=== PATIENT | female | born 1995 | race Caucasian/White ===

== ENCOUNTER 2016-05-09 17:30 | Emergency (ER) ==
[2016-05-09] MEDS ORDERED: ACETAMINOPHEN 325 MG TABLET PO ONE (17:43)
--- NOTE | 2016-05-09 17:43 | ER Document Report ---
ED Medical Screen (RME) - General Stated Complaint: HEADACHE Time seen by provider: 17:40 Mode of Arrival: Ambulatory Information source: Patient Notes: 80-year-old female complaining of a posterior occipital headache that started on Wednesday that is radiating into both of her temples and down into both of her jaws since Wednesday. She took a whole bottle of Motrin this week without relief. She has nausea and ringing in her ears. She did not take any aspirin today. No fever. sHe has a history of migraines. LMP: last week irregular for months I have greeted and performed a rapid initial assessment of this patient. A comprehensive ED assessment, evaluation of the patient, analysis of test results , and completion of the medical decision making process will be conducted by additional ED providers. - Related Data Allergies/Adverse Reactions: Penicillins Allergy (Verified 05/09/16 17:39) Sulfa (Sulfonamide Antibiotics) Allergy (Verified 05/09/16 17:39) Physical Exam - Vital signs Vitals: Temp Pulse Resp BP Pulse Ox 97.9 F 93 16 110/77 97 05/09/16 17:34 05/09/16 17:34 05/09/16 17:34 05/09/16 17:34 05/09/16 17:34 Course - Vital Signs Vital signs: Temp Pulse Resp BP Pulse Ox 97.9 F 93 16 110/77 97 05/09/16 17:34 05/09/16 17:34 05/09/16 17:34 05/09/16 17:34 05/09/16 17:34
--- NOTE | 2016-05-09 18:11 | ER Document Report ---
ED Headache - General Mode of Arrival: Ambulatory Information source: Patient TRAVEL OUTSIDE OF THE [place] IN LAST 30 DAYS: No - HPI Patient complains to provider of: Headache Associated symptoms: Other - See above <SAMEER MORTENSEN - Last Filed: 05/09/16 18:18> <MAGGIE BROTHERS - Last Filed: 05/09/16 22:55> - General Chief Complaint: Headache Stated Complaint: HEADACHE Notes: Patient is a 20 year old female who presents to the emergency department complaining of a headache onset 5 days ago. Patient reports that she has been taking Motrin, Tylenol, and Alieve at home with no relief. Patient also complains of nausea and ringing in her right ear. Patient states that she had an ear ache before her headache started. Patient reports she has a history of migraines from a pinched nerve in her neck but that this is different. Patient reports that she was planning on coming in yesterday but that she had to work. Patient is unsure if she is . Patient denies cough, congestion, jaw clicking, and sore throat. (SAMEER MORTENSEN) - Related Data Allergies/Adverse Reactions: Penicillins Allergy (Verified 05/09/16 17:39) Sulfa (Sulfonamide Antibiotics) Allergy (Verified 05/09/16 17:39) Home Medications: Current Home Medications No Home Medications 05/09/16 [History] Past Medical History - General Information source: Patient - Social History Smoking Status: Current Every Day Smoker Chew tobacco use (# tins/day): No Frequency of alcohol use: Occasional Drug Abuse: None Family History: Reviewed & Not Pertinent Patient has suicidal ideation: No Patient has homicidal ideation: No <SAMEER MORTENSEN - Last Filed: 05/09/16 18:18> Review of Systems - Review of Systems Constitutional: No symptoms reported EENT: See HPI, Other - ear ringing. denies: Nose congestion, Throat pain Cardiovascular: No symptoms reported Respiratory: denies: Cough Gastrointestinal: See HPI, Nausea Genitourinary: No symptoms reported Female Genitourinary: No symptoms reported Musculoskeletal: No symptoms reported Skin: No symptoms reported Hematologic/Lymphatic: No symptoms reported Neurological/Psychological: See HPI, Headaches -: Yes All other systems reviewed and negative <SAMEER MORTENSEN - Last Filed: 05/09/16 18:18> Physical Exam - Vital signs Interpretation: Normal - General General appearance: Appears well, Alert - HEENT Head: Normocephalic, Atraumatic Ears: Normal External canal: Normal Tympanic membrane: Normal Neck: Normal - Respiratory Respiratory status: No respiratory distress - Extremities General upper extremity: Normal inspection General lower extremity: Normal inspection - Neurological Neuro grossly intact: Yes Cognition: Normal Orientation: AAOx4 Saida Coma Scale Eye Opening: Spontaneous [place] Coma Scale Verbal: Oriented [place] Coma Scale Motor: Obeys Commands [place] Coma Scale Total: 15 Speech: Normal - Psychological Associated symptoms: Normal affect, Normal mood - Skin Skin Temperature: Warm Skin Moisture: Dry Skin Color: Normal <SAMEER MORTENSEN - Last Filed: 05/09/16 18:18> Course <SAMEER MORTENSEN - Last Filed: 05/09/16 18:18> - Laboratory Result Diagrams: 05/09/16 18:30 05/09/16 18:30 <MAGGIE BROTHERS - Last Filed: 05/09/16 22:55> - Re-evaluation Re-evalutation: 05/09/16 Patient feels better after medications and feels better. Like to go home. Stable for discharge. Follow-up with PMD for migraines. (MAGGIE BROTHERS ) - Vital Signs Vital signs: Temp Pulse Resp BP Pulse Ox 97.9 F 93 16 110/77 97 05/09/16 17:34 05/09/16 17:34 05/09/16 17:34 05/09/16 17:34 05/09/16 17:34 - Laboratory Laboratory results interpreted by me: 05/09/16 05/09/16 18:30 18:30 RDW 14.2 H Chloride 108 H Carbon Dioxide 20 L Discharge <SAMEER MORTENSEN - Last Filed: 05/09/16 18:18> <MAGGIE BROTHERS - Last Filed: 05/09/16 22:55> - Discharge Clinical Impression: Headache Qualifiers: Headache type: unspecified Headache chronicity pattern: acute headache Intractability: not intractable Qualified Code(s): R51 - Headache Condition: Stable Disposition: HOME, SELF-CARE Instructions: Headache ([facility]) Scribe Attestation: 05/09/16 22:55 I personally performed the services described in the documentation, reviewed and edited the documentation which was dictated to the scribe in my presence, and it accurately records my words and actions. (MAGGIE BROTHERS) Scribe Documentation - Scribe Written by Fadumo:: fadumo Gutierrez, 05/09/161817 acting as scribe for :: Austyn <SAMEER MORTENSEN - Last Filed: 05/09/16 18:18>
[2016-05-09] MEDS ORDERED: ONDANSETRON HCL INJ/PF 4 MG/2 ML SDV IV ONE (18:12)
[2016-05-09] MEDS ORDERED: PROCHLORPERAZINE EDISYLATE INJ 10 MG/2 ML VIAL IV ONE (18:12)
[2016-05-09] MEDS ORDERED: DIPHENHYDRAMINE HCL 50 MG/ML VIAL IV ONE (18:12)
[2016-05-09 18:42] LABS: ABSOLUTE BASOPHILS # (AUTO) 0.1 10^3/uL (0.0-0.2); ABSOLUTE EOSINOPHILS # (AUTO) 0.3 10^3/uL (0.0-0.6); ABSOLUTE MONOCYTES (AUTO) 0.7 10^3/uL (0.1-1.4); ABSOLUTE NEUT (AUTO) 5.2 10^3/uL (1.7-8.2); EOSINOPHILS % (AUTO) 3.3 % (0-6); HEMATOCRIT 37.4 % (36.0-47.0); HEMOGLOBIN 12.8 g/dL (12.0-15.5); LYMPHOCYTES % (AUTO) 31.7 % (13-45); MEAN CORPUSCULAR HEMOGLOBIN 30.9 pg (27.0-33.4); MEAN CORPUSCULAR HGB CONC 34.2 g/dL (32.0-36.0); MEAN CORPUSCULAR VOLUME 90 fl (80-97); RED BLOOD COUNT 4.14 10^6/uL (3.72-5.28); RED CELL DISTRIBUTION WIDTH 14.2 % (11.5-14.0); WHITE BLOOD COUNT 9.3 10^3/uL (4.0-10.5)
[2016-05-09 19:02] LABS: ANION GAP 15 (5-19); BLOOD UREA NITROGEN 16 mg/dL (7-20); CARBON DIOXIDE 20 mmol/L (22-30); CHLORIDE 108 mmol/L (98-107); CREATININE RESULT 0.76 mg/dL (0.52-1.25); GLUCOSE 82 mg/dL (75-110); POTASSIUM 4.1 mmol/L (3.6-5.0); SODIUM 142.9 mmol/L (137-145)
== END 2016-05-09 18:54 | disposition home or self-care (01) ==
LOC: ER 17:30
DX: R51 Headache (principal); R11.0 Nausea; F17.200 Nicotine dependence, unspecified, uncomplicated; Z88.0 Allergy status to penicillin; Z88.2 Allergy status to sulfonamides
CPT/HCPCS: 99284; 96374; 96375; 36415; 84702; 85025; 80048; J1200; J0780; J2405

== ENCOUNTER 2016-07-26 22:11 | Emergency (ER) | payer SELFPAY | END 2016-07-27 00:02 | disposition left against medical advice (07) | LOC: ER 22:11 | DX: Z53.9 Procedure and treatment not carried out, unspecified reason (principal); R10.9 Unspecified abdominal pain ==

== ENCOUNTER 2016-12-14 17:39 | Emergency (ER) | payer SELFPAY | END 2016-12-14 18:45 | disposition left against medical advice (07) | LOC: ER 17:39 | DX: Z53.9 Procedure and treatment not carried out, unspecified reason (principal); R10.9 Unspecified abdominal pain ==

== ENCOUNTER 2017-02-03 08:47 | Emergency (ER) | payer SELFPAY ==
[2017-02-03] MEDS ORDERED: CLINDAMYCIN HCL 150 MG CAPSULE PO ONE (09:50)
[2017-02-03] MEDS ORDERED: IBUPROFEN 800 MG TABLET PO ONE (09:51)
[2017-02-03] MEDS ORDERED: ACETAMINOPHEN WITH CODEINE #3 TABLET PO ONE (09:51)
--- NOTE | 2017-02-03 09:54 | ER Document Report ---
HPI - HPI Patient complains to provider of: Dental pain Onset: Last week Quality of pain: Achy Pain Level: 5 Context: Patient complains of breaking her tooth 2 months ago. Patient complains of worsening pain over the past week. Patient without any fever or facial swelling. Associated Symptoms: Other - Dental pain. denies: Fever, Headache, Vomiting Exacerbated by: Denies Relieved by: Denies Similar symptoms previously: Yes Recently seen / treated by doctor: No - ROS ROS below otherwise negative: Yes Systems Reviewed and Negative: Yes All other systems reviewed and negative - CONSTITUTIONAL Constitutional: DENIES: Fever - EENT Notes: Dental pain - GASTROINTESTINAL Gastrointestinal: DENIES: Nausea, Patient vomiting - DERM Skin Color: Normal Skin Problems: None Past Medical History - General Information source: Patient - Social History Smoking Status: Current Every Day Smoker Occupation: Retail Lives with: Family Family History: Reviewed & Not Pertinent Pulmonary Medical History: Reports: Hx Asthma Renal/ Medical History: Denies: Hx Peritoneal Dialysis Past Surgical History: Reports: Hx Oral Surgery - Immunizations Hx Diphtheria, Pertussis, Tetanus Vaccination: Yes Vertical Provider Document - CONSTITUTIONAL Agree With Documented VS: Yes Exam Limitations: No Limitations General Appearance: WD/WN, No Apparent Distress - INFECTION CONTROL TRAVEL OUTSIDE OF THE [place] IN LAST 30 DAYS: No - HEENT HEENT: Atraumatic, Normocephalic. negative: Pharyngeal Exudate, Pharyngeal Tenderness, Pharyngeal Erythema, Tympanic Membrane Red, Tympanic Membrane Bulging Mouth Diagram: 1 - Dental decay, fracture, tenderness, no gingival swelling, no trismus, no potential airway compromise Notes: Serous effusion on the left - NECK Neck: Normal Inspection, Supple. negative: Lymphadenopathy-Left, Lymphadenopathy-Right - RESPIRATORY Respiratory: Breath Sounds Normal, No Respiratory Distress O2 Sat by Pulse Oximetry: 97 - CARDIOVASCULAR Cardiovascular: Regular Rate, Regular Rhythm - MUSCULOSKELETAL/EXTREMETIES Musculoskeletal/Extremeties: MAEW - NEURO Level of Consciousness: Awake, Alert, Appropriate Motor/Sensory: No Motor Deficit - DERM Integumentary: Warm, Dry, No Rash Course - Re-evaluation Re-evalutation: 02/03/17 [place] controlled substance database reviewed - Vital Signs Vital signs: Temp Pulse Resp BP Pulse Ox 97.9 F 76 16 103/63 97 02/03/17 09:12 02/03/17 09:12 02/03/17 09:12 02/03/17 09:12 02/03/17 09:12 Discharge - Discharge Clinical Impression: Toothache Condition: Stable Disposition: HOME, SELF-CARE Instructions: Clindamycin ([facility]), Oral Narcotic Medication ([facility]), Toothache ([facility] ) Additional Instructions: Return immediately for any new or worsening symptoms Followup with your primary care provider, call tomorrow to make a followup appointment Follow-up with a dental care provider Prescriptions: Acetaminophen with Codeine [Acetaminophen-Cod #3 Tablet] 1 each PO Q6 PRN #12 tablet PRN Reason: Clindamycin HCl [Cleocin 300 mg Capsule] 300 mg PO TID #21 capsule Naproxen [Naprosyn 250 Nmg Tablet] 1 tab PO BID #14 tablet Forms: Return to Work Referrals: [facility] [Provider Group] - Follow up tomorrow
[2017-02-03 10:28] VITALS: BP 94/66
== END 2017-02-03 10:29 | disposition home or self-care (01) ==
LOC: ER 08:47
DX: K02.9 Dental caries, unspecified (principal); K08.89 Other specified disorders of teeth and supporting structures; J45.909 Unspecified asthma, uncomplicated; F17.200 Nicotine dependence, unspecified, uncomplicated
CPT/HCPCS: 99282

== ENCOUNTER 2017-04-05 13:11 | Emergency (ER) | payer SELFPAY ==
[2017-04-05] MEDS ORDERED: DEXAMETHASONE SOD PHOS INJ 10 MG/1 ML VIAL IV ONE (14:43)
[2017-04-05] MEDS ORDERED: IPRATROPIUM/ALBUTEROL 0.5-2.5 MG/3 ML AMPUL NEB ONE (14:43)
[2017-04-05] MEDS ORDERED: NORMAL SALINE 1000 ML 1,000 ML IV ONE (14:44)
[2017-04-05 15:14] LABS: A TYPE INFLUENZA AG NEGATIVE (NEGATIVE); B INFLUENZA AG NEGATIVE (NEGATIVE)
[2017-04-05] MEDS: ALBUTEROL SULFATE 0.083% NEB 2.5 MG/3 ML AMPUL NEB SCH ×2 (15:21→15:50)
--- NOTE | 2017-04-05 15:29 | RADIOLOGY REPORT (SQ) ---
EXAM DESCRIPTION: CHEST PA/LAT COMPLETED DATE/TIME: 04/05/2017 3:21 pm REASON FOR STUDY: cough congestion fever COMPARISON: None. EXAM PARAMETERS: NUMBER OF VIEWS: two views TECHNIQUE: Digital Frontal and Lateral radiographic views of the chest acquired. RADIATION DOSE: NA LIMITATIONS: none FINDINGS: LUNGS AND PLEURA: No opacities, masses or pneumothorax. No pleural effusion. MEDIASTINUM AND HILAR STRUCTURES: No masses or contour abnormalities. HEART AND VASCULAR STRUCTURES: Heart normal size. No evidence for failure. BONES: No acute findings. HARDWARE: None in the chest. OTHER: No other significant finding. IMPRESSION: NO SIGNIFICANT RADIOGRAPHIC FINDING IN THE CHEST. TECHNICAL DOCUMENTATION: JOB ID: [id number] [employer]- All Rights Reserved
[2017-04-05 15:52] LABS: ABSOLUTE LYMPHOCYTES (AUTO) 1.4 10^3/uL (0.5-4.7); ABSOLUTE MONOCYTES (AUTO) 0.8 10^3/uL (0.1-1.4); ABSOLUTE NEUT (AUTO) 6.7 10^3/uL (1.7-8.2); BASOPHILS % (AUTO) 0.3 % (0-2); EOSINOPHILS % (AUTO) 0.1 % (0-6); HEMATOCRIT 37.8 % (36.0-47.0); HEMOGLOBIN 13.1 g/dL (12.0-15.5); LYMPHOCYTES % (AUTO) 15.4 % (13-45); MEAN CORPUSCULAR HEMOGLOBIN 30.8 pg (27.0-33.4); MEAN CORPUSCULAR HGB CONC 34.6 g/dL (32.0-36.0); MEAN CORPUSCULAR VOLUME 89 fl (80-97); MONOCYTES % (AUTO) 9.3 % (3-13); PLATELET COUNT 331 10^3/uL (150-450); RED BLOOD COUNT 4.24 10^6/uL (3.72-5.28); RED CELL DISTRIBUTION WIDTH 12.7 % (11.5-14.0); SEGMENTED NEUTROPHILS % (AUTO) 74.9 % (42-78); TOTAL CELLS COUNTED % (AUTO) 100 %
[2017-04-05 17:35] LABS: ALANINE AMINOTRANSFERASE 26 U/L (9-52); ALBUMIN 3.7 g/dL (3.5-5.0); ALKALINE PHOSPHATASE 44 U/L (38-126); ANION GAP 8 (5-19); ASPARTATE AMINO TRANSFERASE 20 U/L (14-36); BILIRUBIN,DIRECT 0.2 mg/dL (0.0-0.4); BILIRUBIN,TOTAL 0.2 mg/dL (0.2-1.3); BLOOD UREA NITROGEN 6 mg/dL (7-20); CALCIUM 9.3 mg/dL (8.4-10.2); CARBON DIOXIDE 25 mmol/L (22-30); CHLORIDE 108 mmol/L (98-107); GLUCOSE 111 mg/dL (75-110); POTASSIUM 3.1 mmol/L (3.6-5.0); SODIUM 141.4 mmol/L (137-145); TOTAL PROTEIN 6.2 g/dL (6.3-8.2)
[2017-04-05] MEDS ORDERED: POTASSIUM CHLORIDE 10 MEQ TABLET.SA PO ONE (17:58)
[2017-04-05] MEDS ORDERED: ALBUTEROL SULFATE HFA (90 MCG/PUFF) 8 GM MDI (1 MDI/ER DISP) IH ONE (17:58)
--- NOTE | 2017-04-05 18:04 | ER Document Report ---
ED Flu Like - General Chief Complaint: Flu Symptoms Stated Complaint: BREATHING PROBLEM Time Seen by Provider: 04/05/17 14:20 Mode of Arrival: Ambulatory Information source: Patient Notes: 20-year-old female presented to ED for complaint of cough cold and flu symptoms states she felt like she was dehydrated and short of breath. Patient states she has a history of asthma and used an entire albuterol inhaler last night because she was so short of breath. She states that her family refused to bring her to the emergency room last night because they thought she was just taken it. TRAVEL OUTSIDE OF THE [place] IN LAST 30 DAYS: No - HPI Onset: Yesterday Timing/Duration: Persistent Quality of pain: Achy Severity: Severe Pain Level: 5 Associated symptoms: Body/muscle aches, Chills, Fever, Rhinnorhea, Sinus pain/ drainage, Shortness of breath Similar symptoms previously: Yes Recently seen / treated by doctor: No - Related Data Allergies/Adverse Reactions: Penicillins Allergy (Verified 04/05/17 15:39) Sulfa (Sulfonamide Antibiotics) Allergy (Verified 04/05/17 15:39) Past Medical History - General Information source: Patient - Social History Smoking Status: Current Every Day Smoker Cigarette use (# per day): Yes - One half pack per day Chew tobacco use (# tins/day): No Smoking Education Provided: Yes - 4 minutes Frequency of alcohol use: Occasional Drug Abuse: None Occupation: None Lives with: Parents Family History: Arthritis, CAD, CVA, DM, Hyperlipidemia, Hypertension. denies: COPD, Malignancy, Thyroid Disfunction Patient has suicidal ideation: No Patient has homicidal ideation: No - Past Medical History Cardiac Medical History: Reports: None Pulmonary Medical History: Reports: Hx Asthma, Hx Bronchitis EENT Medical History: Reports: None Neurological Medical History: Reports: None Endocrine Medical History: Reports: None Renal/ Medical History: Reports: None Malignancy Medical History: Reports: None GI Medical History: Reports: None Musculoskeltal Medical History: Reports None Skin Medical History: Reports None Psychiatric Medical History: Reports: None Traumatic Medical History: Reports: None Infectious Medical History: Reports: None Past Surgical History: Reports: Hx Oral Surgery - Immunizations Immunizations up to date: Yes Hx Diphtheria, Pertussis, Tetanus Vaccination: Yes Review of Systems - Review of Systems Constitutional: Recent illness EENT: Nose congestion, Sinus pressure Cardiovascular: No symptoms reported Respiratory: Cough, Short of breath, Wheezing Gastrointestinal: Nausea, Vomiting Genitourinary: No symptoms reported Female Genitourinary: No symptoms reported Musculoskeletal: No symptoms reported Skin: No symptoms reported Hematologic/Lymphatic: No symptoms reported Neurological/Psychological: No symptoms reported -: Yes All other systems reviewed and negative Physical Exam - Vital signs Vitals: Temp Pulse Resp BP Pulse Ox 98.7 F 97 18 125/75 98 04/05/17 13:21 04/05/17 13:21 04/05/17 13:21 04/05/17 13:21 04/05/17 13:21 Interpretation: Normal - General General appearance: Appears well, Alert - HEENT Head: Normocephalic, Atraumatic Eyes: Normal Pupils: PERRL Ears: Normal External canal: Normal Tympanic membrane: Normal Sinus: Normal Nasal: Purulent discharge, Swelling Mouth/Lips: Normal Mucous membranes: Normal - Respiratory Respiratory status: No respiratory distress Chest status: Nontender Breath sounds: Nonproductive cough, Other - She states she felt her lungs were very tight. No: Productive cough, Rales, Rhonchi, Stridor, Wheezing Chest palpation: Normal - Cardiovascular Rhythm: Regular Heart sounds: Normal auscultation Murmur: No - Abdominal Inspection: Normal Distension: No distension Bowel sounds: Normal Tenderness: Nontender. No: Tender Organomegaly: No organomegaly. No: Hepatomegaly, Splenomegaly, Mass - Back Back: Normal, Nontender - Extremities General upper extremity: Normal inspection, Nontender, Normal color, Normal ROM , Normal temperature General lower extremity: Normal inspection, Nontender, Normal color, Normal ROM , Normal temperature, Normal weight bearing. No: Elba's sign - Neurological Neuro grossly intact: Yes Cognition: Normal Orientation: AAOx4 [place] Coma Scale Eye Opening: Spontaneous [place] Coma Scale Verbal: Oriented [place] Coma Scale Motor: Obeys Commands [place] Coma Scale Total: 15 Speech: Normal Motor strength normal: LUE, RUE, LLE, RLE Sensory: Normal - Psychological Associated symptoms: Normal affect, Normal mood - Skin Skin Temperature: Warm Skin Moisture: Dry Skin Color: Normal Course - Re-evaluation Re-evalutation: 04/06/17 02:50 Patient was treated with dexamethasone IV as well as albuterol and DuoNeb nebulizer treatments. Patient's chest x-ray was negative. Her potassium was low which is not unusual with her using a whole albuterol inhaler last night. Patient was given potassium p.o. in the emergency room and encouraged to eat bananas until she placed her potassium. Patient was given instructions on proper use of an albuterol inhaler and to increase her p.o. fluid intake. Patient to follow-up with her primary doctor and to return to the ED for any increase in wheezing or respiratory symptoms. - Vital Signs Vital signs: Temp Pulse Resp BP Pulse Ox 98.2 F 96 18 131/81 H 97 04/05/17 18:24 04/05/17 18:24 04/05/17 18:24 04/05/17 18:24 04/05/17 18:24 - Laboratory Result Diagrams: 04/05/17 15:35 04/05/17 17:11 Laboratory results interpreted by me: 04/05/17 17:11 Potassium 3.1 L Chloride 108 H BUN 6 L Creatinine 0.50 L Glucose 111 H Total Protein 6.2 L - Diagnostic Test Radiology reviewed: Image reviewed, Reports reviewed Discharge - Discharge Clinical Impression: Hypokalemia, Flu-like symptoms, Bronchospasm Condition: Stable Disposition: HOME, SELF-CARE Instructions: Family Physicians / Practices Additional Instructions: Viral Syndrome The physician has diagnosed a viral infection. Viruses not only cause "colds," but can cause many different symptoms including generalized aching, fever, headache, cough, diarrhea, nausea, vomiting, and fatigue. The treatment, for the most part, is simply relief of symptoms. This means that antibiotics are usually not given. Rest, fluids, pain medications and, occasionally, medication for the specific symptoms that are most bothersome will be prescribed. Use good handwashing to avoid passing the virus to others. Shared toys should be cleaned with disinfectant. Clean the toilets, sinks, and counter surfaces in bathrooms. Launder clothing in hot water. Contact the physician if you develop any new or unusual symptoms such as severe headache, stiff neck, high fever, chest pain, productive cough, or shortness of breath. You should be rechecked if you don't see marked improvement within seven to 10 days. UPPER RESPIRATORY ILLNESS: You have a viral infection of the respiratory passages -- a "cold." This common infection causes nasal congestion, drainage, and often sore throat and cough. It is highly contagious. The disease usually lasts about 10 to 14 days. There is no "cure" for the viral infection -- it must run its course. If there is a complication, such as bacterial infection in the nose, sinuses, middle ear, or bronchial tubes, antibiotics may be required. The antibiotics won't affect the virus. Drink plenty of fluids. A humidifier may help. An expectorant medication or decongestant may make you more comfortable. Use acetaminophen or ibuprofen for fever or aches. See the doctor if fever persists over two days, if there is any significant worsening of your symptoms, or if you simply fail to improve as expected. BRONCHOSPASM: You have tightness in the bronchial tubes, called bronchospasm. This often occurs with bronchial infections. Allergies, inhaled chemicals, and polluted or cold air can also provoke bronchospasm. It's more likely in patients with asthma in the family. Emergency treatment of bronchospasm may include adrenaline shots or bronchodilator aerosol. You may feel lightheaded and have a rapid pulse for an hour or two. Rest and get plenty of fluids. At home, we'll treat you with a bronchodilator inhaler. Antibiotics and corticosteroids may be required for some patients. Until you recover, avoid chemical fumes, dusts, pollens, and exercising in very cold or dry air. If you smoke, stop now!! If you develop a fever, increased wheezing, chest pain, or severe shortness of breath, you should contact the doctor immediately. Hypokalemia You have an abnormally decreased level of serum potassium. Hypokalemia may cause weakness, fatigue, or heart rhythm abnormalities. Sometimes there are no symptoms at all. Usually, low serum potassium is due to taking diuretics ( water pills). It can also be due to excessive vomiting or diarrhea. If no obvious cause is evident, further evaluation will be necessary. Treatment is usually oral potassium supplements. Take these exactly as prescribed. You may also want to select foods which are naturally high in potassium -- fruits (such as bananas, cantaloupe, grapes, oranges, prunes, tomatoes), fresh vegetables (potatoes, spinach, beans, peas), orange or tomato juice, tomato pasta sauce, milk, fish (halibut, tuna, salmon, ramses) A follow-up blood test is usually performed to assure that the potassium is returning to normal. Call the physician if you suffer severe weakness, muscle twitching or cramping, palpitations (pounding or irregular heartbeat), or any other new or alarming symptoms. Please eat 2 bananas a day for the next week to help with your potassium DECONGESTANT MEDICATION: A decongestant medicine has been prescribed. Often this medicine is combined in the same tablet with an antihistamine or expectorant. This type of medicine is helpful in treating a bad cold or sinus condition, as well as in treatment of the nasal congestion of hay fever. It is not of much benefit for lung infections. Decongestant medicines are related to stimulants. They can cause an increase in blood pressure and heart rate. Persons with heart disease and high blood pressure should not take decongestants without discussing this with the physician. If you develop palpitations, chest pain, headache, or tremors, stop the medicine and consult your physician. COUGH-SUPPRESSANT & EXPECTORANT MEDICATION: You are to use a cough medication as needed for relief of symptoms. This medicine is a combination of an expectorant (to make the mucous thinner and more easily "coughed up") and a cough suppressant (to reduce the frequency of coughing). The cough-suppressant medicine is related to narcotics. You may experience mild nausea and sleepiness. Some patients who are very sensitive to narcotics may have stomach pain from this medicine. Taking the medicine with food reduces these side effects. Do not drive or work with machinery until you know how this medicine affects you. The expectorant should have no side effects. Iodine-containing expectorants (such as organidin) should not be taken by persons with active thyroid disease unless approved by your doctor. Call the doctor if you develop shortness of breath, hives, rash, itching, lightheadedness, or severe nausea and vomiting. INHALED BRONCHODILATORS: You have received a treatment of and/or prescription for an inhaled bronchodilator -- a medication which stimulates the airways in the lung to dilate. This improves the flow of air in asthma, bronchitis, and emphysema. These medicines have some similarity to adrenaline, and can cause similar side effects: shakiness, racing heart, and a sense of nervousness. These side effects decrease with time. Contact your doctor if these side effects are severe. Do not over-use the medicine. Too-frequent use of the inhaler may make it ineffective. Call your doctor if the inhaler is not controlling your symptoms at the prescribed doses. STEROID MEDICATION: You have been given an injection of or oral medicine of the cortisone/ steroid class. This medication is used to control inflammation or allergy. Yoel t is usually only given for a short period of time, until the acute process subsides. There are usually no side effects from short-term use of cortisone-like medications. Some persons feel an increased sense of well-being and are not sleepy at bedtime. Long-term use of cortisone medications is best avoided, unless required for a severe condition. If your condition does not remit, or relapses after the course of corticosteroid medication, you should consult your physician. USE OF ACETAMINOPHEN (Tylenol): Acetaminophen may be taken for pain relief or fever control. It's much safer than aspirin, offering a wider range of "safe" dosages. It is safe during . Some brand names are Tylenol, Panadol, Datril, Anacin 3, Tempra, and Liquiprin. Acetaminophen can be repeated every four hours. The following are maximum recommended dosages: >89 pounds or adults 650 mg to 900 mg Acetaminophen can be repeated every four hours. Maximum dose not to exceed 4000 mg a day. SMOKING: If you smoke, you should stop smoking. The tar and chemicals in cigarette smoke are harmful. Smoking has been shown to cause: emphysema chronic bronchitis lung cancer mouth and throat cancer stomach and pancreas cancer premature aging defects In addition, smoking increases ear and lung infections in children of smokers. FOLLOW-UP CARE: If you have been referred to a physician for follow-up care, call the physician s office for an appointment as you were instructed or within the next two days. If you experience worsening or a significant change in your symptoms, notify the physician immediately or return to the Emergency Department at any time for re-evaluation. You given you a list of all the local primary doctors. I have also given you a mental health resource list for you to look for a provider for your ADHD. I have also given you name and number care in [facility]. Prescriptions: Albuterol Sulfate [Proair HFA Inhalation Aerosol 8.5 gm MDI] 2 puff IH Q4H PRN # 1 mdi PRN Reason: Prednisone [Sterapred Ds] 1 pkg PO ASDIR PRN 12 Days [email or web address] PRN Reason: Forms: Smoking Cessation Education Referrals: [facility] [Provider Group] - Follow up as needed
[2017-04-05 18:25] VITALS: BP 131/81
== END 2017-04-05 18:25 | disposition home or self-care (01) ==
LOC: ER 13:11
DX: J98.01 Acute bronchospasm (principal); R05 Cough; R06.02 Shortness of breath; M79.1 Myalgia; F17.210 Nicotine dependence, cigarettes, uncomplicated; E87.6 Hypokalemia
CPT/HCPCS: 99406; 94640 ×2; 99284; 96361; 96374; 36415; 84703; 85025; 80053; 87804; 71046; J7030; J1100; J3490; J7620

== ENCOUNTER 2017-04-12 13:45 | Emergency (ER) | payer SELFPAY ==
[2017-04-12 14:08] VITALS: BP 127/86
[2017-04-12 14:30] LABS: ABSOLUTE EOSINOPHILS # (AUTO) 0.1 10^3/uL (0.0-0.6); ABSOLUTE LYMPHOCYTES (AUTO) 2.2 10^3/uL (0.5-4.7); ABSOLUTE MONOCYTES (AUTO) 0.4 10^3/uL (0.1-1.4); ABSOLUTE NEUT (AUTO) 5.9 10^3/uL (1.7-8.2); BASOPHILS % (AUTO) 0.2 % (0-2); EOSINOPHILS % (AUTO) 1.4 % (0-6); HEMATOCRIT 37.3 % (36.0-47.0); HEMOGLOBIN 12.9 g/dL (12.0-15.5); LYMPHOCYTES % (AUTO) 25.4 % (13-45); MEAN CORPUSCULAR HEMOGLOBIN 30.6 pg (27.0-33.4); MEAN CORPUSCULAR HGB CONC 34.5 g/dL (32.0-36.0); MEAN CORPUSCULAR VOLUME 89 fl (80-97); MONOCYTES % (AUTO) 4.7 % (3-13); PLATELET COUNT 396 10^3/uL (150-450); RED BLOOD COUNT 4.21 10^6/uL (3.72-5.28); RED CELL DISTRIBUTION WIDTH 12.7 % (11.5-14.0); SEGMENTED NEUTROPHILS % (AUTO) 68.3 % (42-78); TOTAL CELLS COUNTED % (AUTO) 100 %; WHITE BLOOD COUNT 8.6 10^3/uL (4.0-10.5)
[2017-04-12 14:51] LABS: ALANINE AMINOTRANSFERASE 26 U/L (9-52); ALBUMIN 3.9 g/dL (3.5-5.0); ALKALINE PHOSPHATASE 51 U/L (38-126); ANION GAP 8 (5-19); ASPARTATE AMINO TRANSFERASE 14 U/L (14-36); BILIRUBIN,DIRECT 0.3 mg/dL (0.0-0.4); BILIRUBIN,TOTAL 0.4 mg/dL (0.2-1.3); BLOOD UREA NITROGEN 7 mg/dL (7-20); CALCIUM 9.4 mg/dL (8.4-10.2); CARBON DIOXIDE 25 mmol/L (22-30); CHLORIDE 109 mmol/L (98-107); GLUCOSE 90 mg/dL (75-110); TOTAL PROTEIN 6.6 g/dL (6.3-8.2)
[2017-04-12 14:54] LABS: ACETAMINOPHEN < 10 ug/mL (10-30); ALCOHOL < 10 mg/dL (NONE DETECTED); SALICYLATE < 1.0 mg/dL (2.0-20.0)
[2017-04-12 15:48] LABS: APPEARANCE,URINE SLIGHTLY-CLOUDY; BILIRUBIN,URINE NEGATIVE (NEGATIVE); COLOR,URINE YELLOW; GLUCOSE, URINE NEGATIVE (NEGATIVE); KETONES,URINE NEGATIVE (NEGATIVE); LEUKOCYTE ESTERASE,URINE LARGE (NEGATIVE); NITRITE,URINE NEGATIVE (NEGATIVE); PROTEIN,URINE NEGATIVE (NEGATIVE); UROBILINOGEN,URINE NEGATIVE mg/dL (<2.0)
[2017-04-12 16:10] LABS: URINE AMPHETAMINES SCREEN NEGATIVE; URINE BARBITURATES SCREEN NEGATIVE; URINE BENZODIAZEPINES SCREEN NEGATIVE; URINE COCAINE SCREEN NEGATIVE; URINE MARIJUANA (THC) SCREEN UNCONFIRMED POSITIVE; URINE METHADONE SCREEN NEGATIVE; URINE PHENCYCLIDINE SCREEN NEGATIVE
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
--- NOTE | 2017-04-12 22:34 | EKG REPORT ---
SEVERITY:- NORMAL ECG - SINUS RHYTHM : Confirmed by: Mariam Birmingham 12-Apr-2017 22:33:13
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
== END 2017-04-12 16:46 | disposition home or self-care (01) ==
LOC: ER 13:45
DX: R45.851 Suicidal ideations (principal); F12.10 Cannabis abuse, uncomplicated; F17.200 Nicotine dependence, unspecified, uncomplicated; Z88.0 Allergy status to penicillin; Z88.2 Allergy status to sulfonamides
CPT/HCPCS: 36415; 80053; 80307; 81001; 84703; 85025; 93005; 93010; 99284

== ENCOUNTER 2017-05-10 01:09 | Emergency (ER) | payer SELFPAY ==
[2017-05-10] MEDS ORDERED: NORMAL SALINE 1000 ML 1,000 ML IV ONE (01:43)
[2017-05-10] MEDS ORDERED: HYDROCODONE/ACETAMINOPHEN 5-325 MG TABLET PO ONE (01:44)
[2017-05-10 02:37] LABS: ABSOLUTE BASOPHILS # (AUTO) 0.1 10^3/uL (0.0-0.2); ABSOLUTE EOSINOPHILS # (AUTO) 0.2 10^3/uL (0.0-0.6); ABSOLUTE LYMPHOCYTES (AUTO) 2.6 10^3/uL (0.5-4.7); ABSOLUTE MONOCYTES (AUTO) 1.2 10^3/uL (0.1-1.4); ABSOLUTE NEUT (AUTO) 11.4 10^3/uL (1.7-8.2); BASOPHILS % (AUTO) 0.4 % (0-2); EOSINOPHILS % (AUTO) 1.2 % (0-6); HEMATOCRIT 40.1 % (36.0-47.0); HEMOGLOBIN 13.7 g/dL (12.0-15.5); LYMPHOCYTES % (AUTO) 16.8 % (13-45); MEAN CORPUSCULAR HEMOGLOBIN 30.3 pg (27.0-33.4); MEAN CORPUSCULAR HGB CONC 34.2 g/dL (32.0-36.0); MEAN CORPUSCULAR VOLUME 89 fl (80-97); MONOCYTES % (AUTO) 7.9 % (3-13); PLATELET COUNT 465 10^3/uL (150-450); RED BLOOD COUNT 4.53 10^6/uL (3.72-5.28); RED CELL DISTRIBUTION WIDTH 14.2 % (11.5-14.0); SEGMENTED NEUTROPHILS % (AUTO) 73.7 % (42-78); TOTAL CELLS COUNTED % (AUTO) 100 %; WHITE BLOOD COUNT 15.5 10^3/uL (4.0-10.5)
[2017-05-10 02:56] LABS: ANION GAP 14 (5-19); BLOOD UREA NITROGEN 9 mg/dL (7-20); CALCIUM 9.7 mg/dL (8.4-10.2); CARBON DIOXIDE 22 mmol/L (22-30); CHLORIDE 105 mmol/L (98-107); CREATINE KINASE 53 U/L (30-135); GLUCOSE 103 mg/dL (75-110); POTASSIUM 3.9 mmol/L (3.6-5.0); SODIUM 141.1 mmol/L (137-145)
[2017-05-10] MEDS ORDERED: DOXYCYCLINE HYCLATE 100 MG TABLET PO ONE (03:05)
[2017-05-10] MEDS ORDERED: HYDROCODONE/ACETAMINOPHEN 5-325 MG (6 TAB/ER DISP) PO PRN (03:11)
--- NOTE | 2017-05-10 03:15 | ER Document Report ---
ED General - General Chief Complaint: Skin Problem Stated Complaint: POSSIBLE SPIDER BITE Time Seen by Provider: 05/10/17 01:24 Notes: Patient is a 21-year-old female who presents with complaint of redness and pain to the right forearm. She says she first noticed a small area of redness 3 days ago. Redness is slowly spread areas become little more painful. No swelling. She did have a fever at home today. No vomiting. No diarrhea. She initially thought it may be a spider bite but she never did see a spider and she denies seeing any puncture miller on her arm. Today she did have some vomiting and some body aches when she had a fever. She denies any history of IV drug abuse. She has no other complaints at this time. TRAVEL OUTSIDE OF THE [place] IN LAST 30 DAYS: No - Related Data Allergies/Adverse Reactions: Penicillins Allergy (Verified 05/10/17 01:10) Sulfa (Sulfonamide Antibiotics) Allergy (Verified 05/10/17 01:10) Past Medical History - Social History Smoking Status: Current Every Day Smoker Frequency of alcohol use: Occasional Drug Abuse: Marijuana Family History: Arthritis, CAD, CVA, DM, Hyperlipidemia, Hypertension. denies: COPD, Malignancy, Thyroid Disfunction Patient has suicidal ideation: No Patient has homicidal ideation: No Pulmonary Medical History: Reports: Hx Asthma, Hx Bronchitis Renal/ Medical History: Denies: Hx Peritoneal Dialysis Past Surgical History: Reports: Hx Oral Surgery - Immunizations Immunizations up to date: Yes Hx Diphtheria, Pertussis, Tetanus Vaccination: Yes Review of Systems - Review of Systems Notes: My Normal Review Basic REVIEW OF SYSTEMS: CONSTITUTIONAL : Fever at home RESPIRATORY: Denies cough, cold, or chest congestion. Denies shortness of breath, difficulty breathing, or wheezing. GASTROINTESTINAL: Denies abdominal pain. A few episodes of vomiting.. Denies constipation. Last BM: MUSCULOSKELETAL: Redness and pain to right forearm. SKIN: Denies rash or skin lesions. HEMATOLOGIC : Denies easy bruising or bleeding. NEUROLOGICAL: Denies altered mental status or loss of consciousness. ALL OTHER SYSTEMS REVIEWED AND NEGATIVE. Physical Exam - Vital signs Vitals: Temp Pulse Resp BP Pulse Ox 98.6 F 110 H 22 H 125/89 H 97 05/10/17 01:15 05/10/17 01:15 05/10/17 01:15 05/10/17 01:15 05/10/17 01:15 - Notes Notes: General Appearance: Well nourished, alert, cooperative, no acute distress, mild to moderate obvious discomfort. Eyes: PERRL, EOMI, Conjuctiva clear Lungs: No wheezing, No rales, No rhonci, No accessory muscle use, good air exchange bilaterally. Heart: Normal rate, Regular rythm, No murmur, no rub Extremities good pulses in all extremities, small area of redness approximately 3-4 cm in diameter over the right forearm. There is no associated swelling. Is tender to palpate just over the area of redness. The remainder of the forearm is nontender and there is no crepitance. Redness is coalesced at its origin and then almost become somewhat scattered as it lateralizes. No track miller or signs of IV drug abuse on extremity exams. Skin: warm, dry, appropriate color, redness on right forearm. Neuro: speech clear, oriented x 3, normal affect, responds appropriately to questions. Course - Re-evaluation Re-evalutation: 05/10/17 03:15 On reevaluation patient looks well. I feel patient safe to be discharged home. She appears to most likely have a cellulitis. The redness is over small area. As expected is low but tender to palpation. Pain is not out of proportion to exam. She has no crepitance. I do not suspect necrotizing fasciitis. The pain seems to be localized to where the redness is. She does have white counts had recent fevers. Will place on doxycycline. I informed her that she should return to ER immediately if she has recurrent worsening pain , spreading redness, fevers, or any swelling at the area. Encouraged her follow -up with her doctor in 2 days for reevaluation. Patient agrees with plan will be discharged home. Dictation of this chart was performed using voice recognition software; therefore, there may be some unintended grammatical errors. - Vital Signs Vital signs: Temp Pulse Resp BP Pulse Ox 98.3 F 105 H 16 119/88 H 100 05/10/17 03:20 05/10/17 03:20 05/10/17 03:20 05/10/17 03:20 05/10/17 03:20 - Laboratory Result Diagrams: 05/10/17 02:20 05/10/17 02:20 Laboratory results interpreted by me: 05/10/17 02:20 WBC 15.5 H RDW 14.2 H Plt Count 465 H Absolute Neutrophils 11.4 H Discharge - Discharge Clinical Impression: Rash Cellulitis Qualifiers: Site of cellulitis: extremity Site of cellulitis of extremity: upper extremity Laterality: right Qualified Code(s): L03.113 - Cellulitis of right upper limb Condition: Good Disposition: HOME, SELF-CARE Instructions: Oral Narcotic Medication ([facility]) Additional Instructions: Based on your recent fever and mildly elevated white blood cell count I suspect you most likely have cellulitis. This is a bacterial infection of the skin. I will place you on an antibiotic. The antibiotic is called doxycycline. This antibiotic does make your skin sensitive to the sun and to sunburn easily; therefore, please make sure that you have your skin covered when you go well into the sunlight. Please return to the ER if the redness is not improving after 2 days. Return to the ER immediately if you feel like the redness is spreading, you have recurrent fevers, or if you notice swelling associated with the redness. Prescriptions: Doxycycline Hyclate 100 mg PO BID #14 capsule
[2017-05-10 03:28] VITALS: BP 119/88
== END 2017-05-10 03:27 | disposition home or self-care (01) ==
LOC: ER 01:09
DX: L03.113 Cellulitis of right upper limb (principal); R21 Rash and other nonspecific skin eruption; R50.9 Fever, unspecified; R11.10 Vomiting, unspecified; F17.200 Nicotine dependence, unspecified, uncomplicated; J45.909 Unspecified asthma, uncomplicated; Z88.0 Allergy status to penicillin; Z88.2 Allergy status to sulfonamides
CPT/HCPCS: 99283; 96360; 36415; 82550; 85025; 80048; J7030

== ENCOUNTER 2017-05-14 00:09 | Emergency (ER) | payer SELFPAY ==
[2017-05-14] MEDS ORDERED: KETOROLAC TROMETHAMINE 60 MG/2 ML SDV IM ONE (02:19)
[2017-05-14] MEDS ORDERED: DIAZEPAM 2 MG TABLET PO ONE (02:20)
--- NOTE | 2017-05-14 02:24 | ER Document Report ---
ED General - General Chief Complaint: Arm Pain Stated Complaint: RIGHT SHOULER PAIN Time Seen by Provider: 05/14/17 02:09 Mode of Arrival: Ambulatory Information source: Patient TRAVEL OUTSIDE OF THE [place] IN LAST 30 DAYS: No - HPI Patient complains to provider of: "I can't move my right arm" Onset: Just prior to arrival Severity: Moderate Associated symptoms: None Exacerbated by: Denies Relieved by: Denies Similar symptoms previously: No Recently seen / treated by doctor: Yes - seen here last week Notes: Patient states she was at home studying for her GED when she went to crack her neck and felt a sharp pain down her right arm. She states now she is unable to move her arm at all. - Related Data Allergies/Adverse Reactions: Penicillins Allergy (Verified 05/10/17 01:10) Sulfa (Sulfonamide Antibiotics) Allergy (Verified 05/10/17 01:10) Past Medical History - General Information source: Patient - Social History Smoking Status: Current Every Day Smoker Frequency of alcohol use: Occasional Drug Abuse: Marijuana Family History: Arthritis, CAD, CVA, DM, Hyperlipidemia, Hypertension. denies: COPD, Malignancy, Thyroid Disfunction Patient has suicidal ideation: No Patient has homicidal ideation: No - Past Medical History Cardiac Medical History: Reports: None Pulmonary Medical History: Reports: Hx Asthma, Hx Bronchitis Neurological Medical History: Reports: None Endocrine Medical History: Reports: None Renal/ Medical History: Reports: None. Denies: Hx Peritoneal Dialysis Malignancy Medical History: Reports: None GI Medical History: Reports: None Musculoskeltal Medical History: Reports None Psychiatric Medical History: Reports: Hx Depression, Hx Post Traumatic Stress Disorder Past Surgical History: Reports: Hx Oral Surgery - wisdoms - Immunizations Immunizations up to date: Yes Hx Diphtheria, Pertussis, Tetanus Vaccination: Yes Review of Systems - Review of Systems Constitutional: No symptoms reported EENT: No symptoms reported Cardiovascular: No symptoms reported Respiratory: No symptoms reported Gastrointestinal: No symptoms reported Genitourinary: No symptoms reported Female Genitourinary: No symptoms reported Musculoskeletal: See HPI Skin: No symptoms reported Hematologic/Lymphatic: No symptoms reported Neurological/Psychological: See HPI Physical Exam - Vital signs Vitals: Temp Pulse Resp BP Pulse Ox 98.4 F 101 H 18 127/76 H 98 05/14/17 00:14 05/14/17 00:14 05/14/17 00:14 05/14/17 00:14 05/14/17 00:14 - Notes Notes: PHYSICAL EXAMINATION: GENERAL: Well-appearing, well-nourished and in no acute distress. HEAD: Atraumatic, normocephalic. EYES: Pupils equal round and reactive to light, extraocular movements intact, conjunctiva are normal. ENT: Nares patent, oropharynx clear without exudates. Moist mucous membranes. NECK: Normal range of motion, supple without lymphadenopathy. No pain with palpation of the bony cervical spine. No step-off. LUNGS: Breath sounds clear to auscultation bilaterally and equal. No wheezes rales or rhonchi. HEART: Regular rate and rhythm without murmurs ABDOMEN: Soft, nontender, nondistended abdomen. No guarding, no rebound. No masses appreciated. Female : deferred Musculoskeletal: Normal range of motion, no pitting or edema. No cyanosis. NEUROLOGICAL: Cranial nerves grossly intact. Normal speech, normal gait. Normal sensory. Patient is 5 out of 5 strength right upper extremity. She is positive hand grasp which is equal to her hand grasp of her left hand. Right upper extremity is neurovascularly intact. Patient has normal DTRs in her right upper extremity. She is able to abduct flex and extend her right upper extremity with mild pain to her right shoulder. There is no swelling deformity crepitance to the right shoulder. PSYCH: Normal mood, normal affect. SKIN: Warm, Dry, normal turgor, no rashes or lesions noted. Course - Re-evaluation Re-evalutation: 05/14/17 02:27 I initially went into the patient's room she was holding her arm to her right side with the elbow bent and the trapezial muscle spasms of the right side. She states that she is unable to move her arm. I did ask the patient to get up off the bed. When she did she to move her shoulder and her elbow while getting up. I did have patient stand next to the bed and I did have her flex extend and abduct her right shoulder which she could do with mild discomfort. Patient did have good hand grasp. I did talk to her and her father I told her I put her on anti-inflammatories. She had no trauma to the area there was no gross bony deformity and I did not feel that an x-ray of her shoulder or cervical spine would be of use. Patient's to take the anti-inflammatories. She is to follow-up at a nearby urgent care for further evaluation and treatment. - Vital Signs Vital signs: Temp Pulse Resp BP Pulse Ox 98.4 F 101 H 18 127/76 H 98 05/14/17 00:14 05/14/17 00:14 05/14/17 00:14 05/14/17 00:14 05/14/17 00:14 Discharge - Discharge Clinical Impression: Muscle spasm of right shoulder Condition: Stable Disposition: HOME, SELF-CARE Instructions: Muscle Strain ([facility]) Additional Instructions: Follow up with your physician tomorrow for further care or return to the ED IMMEDIATELY if symptoms worsen or new concerns occur. If you cannot afford to follow up with your primary care physician a list of low cost clinics have been provided at the end of your discharge papers as well. Prescriptions: Naproxen [Naprosyn] 500 mg PO BID 5 Days #10 tablet
[2017-05-14 02:51] VITALS: BP 120/67
== END 2017-05-14 02:45 | disposition home or self-care (01) ==
LOC: ER 00:09
DX: M62.838 Other muscle spasm (principal); M79.601 Pain in right arm; F17.200 Nicotine dependence, unspecified, uncomplicated; Z88.0 Allergy status to penicillin; Z88.2 Allergy status to sulfonamides
CPT/HCPCS: 99283; 96372; J3490; J1885

== ENCOUNTER 2017-08-30 19:21 | Emergency (ER) | payer SELFPAY ==
[2017-08-30 19:46] VITALS: BP 120/69
== END 2017-08-30 21:00 | disposition left against medical advice (07) ==
LOC: ER 19:21
DX: Z53.21 Procedure and treatment not carried out due to patient leaving prior to being seen by health care provider (principal)

== ENCOUNTER 2017-09-09 21:18 | Emergency (ER) | payer SELFPAY ==
--- NOTE | 2017-09-09 22:01 | RADIOLOGY REPORT (SQ) ---
EXAM DESCRIPTION: FOOT RIGHT COMPLETE COMPLETED DATE/TIME: 09/09/2017 9:34 pm REASON FOR STUDY: injury COMPARISON: None. NUMBER OF VIEWS: Three views. TECHNIQUE: AP, lateral and oblique radiographic images acquired of the right foot. LIMITATIONS: None. FINDINGS: MINERALIZATION: Normal. BONES: No acute fracture or dislocation. No worrisome bone lesions. JOINTS: No effusions. SOFT TISSUES: No soft tissue swelling. No foreign body. OTHER: No other significant finding. IMPRESSION: NO RADIOGRAPHIC EVIDENCE OF ACUTE INJURY. TECHNICAL DOCUMENTATION: JOB ID: [id number] [id number] 2010 [employer]- All Rights Reserved Reading location - IP/workstation name: [email or web address]
--- NOTE | 2017-09-09 22:09 | ER Document Report ---
ED Extremity Problem, Lower - General Mode of Arrival: Ambulatory Information source: Patient TRAVEL OUTSIDE OF THE [place] IN LAST 30 DAYS: No - General Chief Complaint: Foot Pain Stated Complaint: RIGHT FOOT PAIN Time Seen by Provider: 09/09/17 21:51 Notes: 22 y.o female presents to the ED with RT foot pain of onset last night while she was drunk. Pt reports that she does not remember what happened to her foot but that her boyfriend might have stepped on it several times. She reports pain with ambulation and notes the bruising and edema to her foot. Pt reports previous injury to that foot and ankle, she states that she fractured her ankle and foot playing dodge ball and placing her weight on her injured RLE. (JOSEPH STERN) - Related Data Allergies/Adverse Reactions: Penicillins Allergy (Verified 05/10/17 01:10) Sulfa (Sulfonamide Antibiotics) Allergy (Verified 05/10/17 01:10) Past Medical History - General Information source: Patient - Social History Smoking Status: Current Some Day Smoker Chew tobacco use (# tins/day): No Frequency of alcohol use: Social Family History: Arthritis, CAD, CVA, DM, Hyperlipidemia, Hypertension Patient has suicidal ideation: No Patient has homicidal ideation: No Pulmonary Medical History: Reports: Hx Asthma, Hx Bronchitis Renal/ Medical History: Denies: Hx Peritoneal Dialysis Musculoskeltal Medical History: Reports Other - Hx of Fractured RT ankle and foot Psychiatric Medical History: Reports: Hx Depression, Hx Post Traumatic Stress Disorder Past Surgical History: Reports: Hx Oral Surgery - [facility]oms - Immunizations Immunizations up to date: Yes Hx Diphtheria, Pertussis, Tetanus Vaccination: Yes Review of Systems - Review of Systems Constitutional: No symptoms reported EENT: No symptoms reported Cardiovascular: No symptoms reported Respiratory: No symptoms reported Gastrointestinal: No symptoms reported Genitourinary: No symptoms reported Female Genitourinary: No symptoms reported Musculoskeletal: See HPI, Other - RT foot pain Skin: See HPI, Other - ecchymosis and edema to RT foot and toes Hematologic/Lymphatic: No symptoms reported Neurological/Psychological: No symptoms reported -: Yes All other systems reviewed and negative Physical Exam - Vital signs Vitals: Temp Pulse Resp BP Pulse Ox 98.7 F 80 16 126/75 H 98 09/09/17 21:42 09/09/17 21:42 09/09/17 21:42 09/09/17 21:42 09/09/17 21:42 - Notes Notes: Physical Exam: General: Alert, appears well. Laughing during exam. HEENT: Normocephalic. Atraumatic. PERRL. Extraocular movements intact. Oropharynx clear. Neck: Supple. Non-tender. Respiratory: No respiratory distress. Clear and equal breath sounds bilaterally. Cardiovascular: Regular rate and rhythm. Abdominal: Normal Inspection. Non-tender. No distension. Normal Bowel Sounds. Back: Non-tender. No deformity or step off. Extremities: Moves all four extremities. Upper extremities: Normal inspection. Normal ROM. Lower extremities: No edema. Normal ROM. Ecchymosis and edema to the top of the RT foot and metatarsals 2, 3, 4, and 5. Tender to palpation to the top of RT foot. 2+ pulses. Neurovascularly intact. Neurological: Normal cognition. AAOx3. Normal speech. Psychological: Normal affect. Normal Mood. Laughing during exam. Skin: Warm. Dry. Normal color. (JOSEPH STERN) Course - Re-evaluation Re-evalutation: 09/09/17 22:17 Patient has soft tissue swelling over top of foot otherwise x-ray shows no evidence of fracture. Patient is able to ambulate. Will provide postop shoe for support and anti-inflammatories. Patient instructed to follow-up in 10-14 days if symptoms are not improving as sometimes hairline fractures nondetectable upon initial radiographs (LONG,JEROME H) - Vital Signs Vital signs: Temp Pulse Resp BP Pulse Ox 99.3 F 78 16 128/85 H 98 09/09/17 22:27 09/09/17 22:27 09/09/17 21:42 09/09/17 22:27 09/09/17 22:27 Discharge - Discharge Clinical Impression: Contusion of foot, left Qualifiers: Encounter type: initial encounter Qualified Code(s): S90.32XA - Contusion of left foot, initial encounter Disposition: HOME, SELF-CARE Additional Instructions: Hairline fractures are sometimes not detected on initial radiographs. If symptoms are continuing within the next 10-14 days please seek medical care for reevaluation. Please take 600 mg of ibuprofen every 6 hours as needed for pain control. Scribe Attestation: 09/10/17 01:40 I personally performed the services described documentation, reviewed and edited the documentation which was dictated to describe my presence, and it accurately records my words and actions. (JEROME DECKER) Scribe Documentation - Scribe Written by Dominic:: Dominic Lopez 09/09/17 [id number] acting as scribe for :: Pasha
[2017-09-09] MEDS ORDERED: KETOROLAC TROMETHAMINE 60 MG/2 ML SDV IM ONE (22:19)
[2017-09-09 22:30] VITALS: BP 128/85
== END 2017-09-09 22:30 | disposition home or self-care (01) ==
LOC: ER 21:18
DX: S90.31XA Contusion of right foot, initial encounter (principal); M79.671 Pain in right foot; X58.XXXA Exposure to other specified factors, initial encounter; F17.200 Nicotine dependence, unspecified, uncomplicated; J45.909 Unspecified asthma, uncomplicated
CPT/HCPCS: 99283; 96372; 73630; J1885

== ENCOUNTER 2018-04-21 19:12 | Emergency (ER) | payer BC, MEDICAID ==
[2018-04-21] MEDS ORDERED: KETOROLAC TROMETHAMINE INJ/PF 30 MG/1 ML SDV IV ONE (20:20)
[2018-04-21] MEDS ORDERED: NORMAL SALINE 1000 ML 1,000 ML IV ONE (20:21)
[2018-04-21] MEDS ORDERED: ONDANSETRON HCL INJ/PF 4 MG/2 ML SDV IV ONE (20:21)
[2018-04-21 21:03] LABS: ABSOLUTE BASOPHILS # (AUTO) 0.1 10^3/uL (0.0-0.2); ABSOLUTE EOSINOPHILS # (AUTO) 0.3 10^3/uL (0.0-0.6); ABSOLUTE LYMPHOCYTES (AUTO) 4.1 10^3/uL (0.5-4.7); ABSOLUTE MONOCYTES (AUTO) 0.7 10^3/uL (0.1-1.4); ABSOLUTE NEUT (AUTO) 7.5 10^3/uL (1.7-8.2); BASOPHILS % (AUTO) 0.8 % (0-2); EOSINOPHILS % (AUTO) 2.4 % (0-6); HEMATOCRIT 44.2 % (36.0-47.0); HEMOGLOBIN 15.2 g/dL (12.0-15.5); LYMPHOCYTES % (AUTO) 32.1 % (13-45); MEAN CORPUSCULAR HEMOGLOBIN 30.5 pg (27.0-33.4); MEAN CORPUSCULAR HGB CONC 34.3 g/dL (32.0-36.0); MEAN CORPUSCULAR VOLUME 89 fl (80-97); MONOCYTES % (AUTO) 5.2 % (3-13); PLATELET COUNT 390 10^3/uL (150-450); RED BLOOD COUNT 4.96 10^6/uL (3.72-5.28); RED CELL DISTRIBUTION WIDTH 13.7 % (11.5-14.0); SEGMENTED NEUTROPHILS % (AUTO) 59.5 % (42-78); TOTAL CELLS COUNTED % (AUTO) 100 %; WHITE BLOOD COUNT 12.7 10^3/uL (4.0-10.5)
[2018-04-21 21:10] LABS: APPEARANCE,URINE SLIGHTLY-CLOUDY; BILIRUBIN,URINE NEGATIVE (NEGATIVE); COLOR,URINE YELLOW; GLUCOSE, URINE NEGATIVE (NEGATIVE); KETONES,URINE NEGATIVE (NEGATIVE); LEUKOCYTE ESTERASE,URINE NEGATIVE (NEGATIVE); NITRITE,URINE NEGATIVE (NEGATIVE); PROTEIN,URINE NEGATIVE (NEGATIVE); URINE SPECIFIC GRAVITY 1.013; UROBILINOGEN,URINE NEGATIVE mg/dL (<2.0)
--- NOTE | 2018-04-21 21:22 | ER Document Report ---
ED General - General Chief Complaint: Abdominal Pain Stated Complaint: ABDOMINAL PAIN Time Seen by Provider: 04/21/18 20:19 Notes: Patient is a 22-year-old female without chronic medical problems who presents with 4-5 months of chronic right lower abdominal pain. Patient relates that at the end of December 2017 when she was in [place] she developed right lower abdominal pain, was hospitalized and had cyst removed from her right ovary. Marzena judd did not perform an oophorectomy at that time. Patient states she eventually left the hospital AGAINST MEDICAL ADVICE. States that she went back to the hospital on separate occasions thereafter but did not require repeat hospitalization, was noted to have normal ultrasounds. The patient states that she is recently moved back to [place], that nothing is new or different about the pain and that she simply is looking for pain control. Describes the pain as being a constant, daily, cramping, stabbing pain to her lower right abdomen. She has been trying Tylenol and ibuprofen without improvement of the pain. Nothing worsens the pain. Denies vaginal bleeding or vaginal discharge. No fever or constitutional symptoms. TRAVEL OUTSIDE OF THE [place] IN LAST 30 DAYS: No - Related Data Allergies/Adverse Reactions: Penicillins Allergy (Severe, Verified 04/21/18 20:52) cinnamon Allergy (Verified 04/21/18 19:14) Sulfa (Sulfonamide Antibiotics) Allergy (Verified 04/21/18 19:12) ketorolac Adverse Reaction (Mild, Verified 04/21/18 20:52) itching Past Medical History - General Information source: Patient - Social History Smoking Status: Current Every Day Smoker Frequency of alcohol use: None Drug Abuse: None Lives with: Spouse/Significant other Family History: Arthritis, CAD, CVA, DM, Hyperlipidemia, Hypertension Patient has suicidal ideation: No Patient has homicidal ideation: No Pulmonary Medical History: Reports: Hx Asthma, Hx Bronchitis Renal/ Medical History: Denies: Hx Peritoneal Dialysis Psychiatric Medical History: Reports: Hx Depression, Hx Post Traumatic Stress Disorder Past Surgical History: Reports: Hx Oral Surgery - [facility] - Immunizations Immunizations up to date: Yes Hx Diphtheria, Pertussis, Tetanus Vaccination: Yes Review of Systems - Review of Systems Notes: Constitutional: Negative for fever. HENT: Negative for sore throat. Eyes: Negative for visual changes. Cardiovascular: Negative for chest pain. Respiratory: Negative for shortness of breath. Gastrointestinal: Positive for chronic right lower abdominal pain Genitourinary: Negative for dysuria. Musculoskeletal: Negative for back pain. Skin: Negative for rash. Neurological: Negative for headaches, weakness or numbness. 10 point ROS negative except as marked above and in HPI. Physical Exam - Vital signs Vitals: Temp Pulse Resp BP Pulse Ox 98.5 F 102 H 16 114/85 100 04/21/18 19:17 04/21/18 19:17 04/21/18 19:17 04/21/18 19:17 04/21/18 19:17 Interpretation: Normal - Tachycardia resolved at the time of my assessment Notes: PHYSICAL EXAMINATION: GENERAL: Well-appearing, well-nourished and in no acute distress. HEAD: Atraumatic, normocephalic. EYES: Pupils equal round and reactive to light, extraocular movements intact, sclera anicteric, conjunctiva are normal. ENT: nares patent, oropharynx clear without exudates. Moist mucous membranes. NECK: Normal range of motion, supple without lymphadenopathy LUNGS: Breath sounds clear to auscultation bilaterally and equal. No wheezes rales or rhonchi. HEART: Regular rate and rhythm without murmurs ABDOMEN: Soft, minimal right adnexal tenderness, no other localized areas of abdominal tenderness normoactive bowel sounds. No guarding, no rebound. No masses appreciated. EXTREMITIES: Normal range of motion, no pitting or edema. No cyanosis. NEUROLOGICAL: No focal neurological deficits. Moves all extremities spontaneously and on command. PSYCH: Moderately anxious SKIN: Warm, Dry, normal turgor, no rashes or lesions noted. Course - Re-evaluation Re-evalutation: 04/21/18 21:24 Patient presents with chronic right adnexal abdominal pain that is been ongoing since December 2017. The patient reports that she had a cyst resection from the right ovary in [place] in late December, has continued to have pain since that time. States that she recently moved back to this area, but denies that there is anything new or different regarding her pain other than that she does not have access to pain medications currently. She states that this pain has been constant and unchanged for 4 months, only reason she is here in the emergency room is because she does not have a local primary care. On exam the patient is comfortable in appearance, in no distress. Vitals within normal limits at the time of my evaluation. Abdominal exam reveals mild tenderness to the right adnexa but no other localized areas of tenderness. I do not clinically suspect an acute ovarian torsion, pelvic inflammatory disease or acute appendicitis based on duration of symptoms and chronic nature of the patient's pain. Moreover her abdominal exam is quite benign. Labs unremarkable. She is not . Transvaginal ultrasound pending. Patient will be given a dose of pa in medication here in the emergency room but I have advised that I will not prescribe for chronic pain. 04/21/18 23:48 Transvaginal ultrasound is unremarkable without any acute findings. Patient's pain well controlled. Repeat abdominal exam remains benign. At this time will discharge with return precautions and follow-up recommendations. Verbal discharge instructions given a the bedside and opportunity for questions given. Medication warnings reviewed. Patient is in agreement with this plan and has verbalized understanding of return precautions and the need for primary care follow-up in the next 24-72 hours. - Vital Signs Vital signs: Temp Pulse Resp BP Pulse Ox 98.5 F 102 H 16 114/85 100 04/21/18 19:17 04/21/18 19:17 04/21/18 19:17 04/21/18 19:17 04/21/18 19:17 - Laboratory Result Diagrams: 04/21/18 20:49 04/21/18 21:28 Laboratory results interpreted by me: 04/21/18 04/21/18 04/21/18 20:49 20:49 21:28 WBC 12.7 H Chloride 111 H BUN 6 L Creatinine 0.51 L Urine Blood SMALL H Discharge - Discharge Clinical Impression: Right lower quadrant abdominal pain, Chronic abdominal pain Condition: Good Disposition: HOME, SELF-CARE Additional Instructions: You have been seen in the Emergency Department (ED) for abdominal pain. Your evaluation did not identify a clear cause of your symptoms but was generally reassuring. Please follow-up with [facility] regarding her chronic lower abdominal pain. Transvaginal ultrasound did not reveal any acute findings the right ovary in your labs are otherwise normal. For your pain: Take ibuprofen 600 mg and acetaminophen 1000 mg every 6 hours together as needed for pain. You may use the Levsin as prescribed for additional pain control. Return to the ED if your abdominal pain worsens or fails to improve, you develop bloody vomiting, bloody diarrhea, you are unable to tolerate fluids due to vomiting, fever greater than 101, or other symptoms that concern you. Prescriptions: Hyoscyamine Sulfate [Levsin 0.125 Tablet] 0.125 mg PO TID PRN #30 tablet PRN Reason:
[2018-04-21] MEDS ORDERED: LIDOCAINE 5% (700 MG) TRANSDERMAL ADH..PATCH TP ONE (21:23)
[2018-04-21] MEDS ORDERED: TRAMADOL HCL 50 MG TABLET PO ONE (21:23)
[2018-04-21 21:58] LABS: ANION GAP 6 (5-19); BLOOD UREA NITROGEN 6 mg/dL (7-20); CALCIUM 8.5 mg/dL (8.4-10.2); CARBON DIOXIDE 23 mmol/L (22-30); CHLORIDE 111 mmol/L (98-107); GLUCOSE 89 mg/dL (75-110); POTASSIUM 3.9 mmol/L (3.6-5.0); SODIUM 140.1 mmol/L (137-145)
[2018-04-21] MEDS ORDERED: ONDANSETRON HCL INJ/PF 4 MG/2 ML SDV ONE (22:58)
--- NOTE | 2018-04-21 23:46 | RADIOLOGY REPORT (SQ) ---
US PELVIS HISTORY: Right adnexal pain. COMPARISON: None. TECHNIQUE: Grayscale, color Doppler, and spectral Doppler ultrasound images of the pelvis were obtained. FINDINGS: The uterus is anteverted and measures 7.5 x 4.5 x 3.5 cm. No gestational sac, yolk sac, or pole is visualized. The endometrium is 6 mm in thickness and contains echogenic material which may represent blood products. The right ovary measures 1.1 x 2.0 x 1.3 cm. There is normal color Doppler blood flow in the right ovary. The left ovary was poorly visualized. IMPRESSION: 1. No intrauterine gestational sac. 2. Normal right ovary. Left ovary not well visualized.
[2018-04-21] MEDS ORDERED: MORPHINE SULFATE 10 MG/ML INJ IV ONE (23:57)
[2018-04-22 00:16] VITALS: BP 112/72
== END 2018-04-22 00:16 | disposition home or self-care (01) ==
LOC: ER 19:12
DX: G89.29 Other chronic pain (principal); R10.31 Right lower quadrant pain; F17.200 Nicotine dependence, unspecified, uncomplicated; J45.909 Unspecified asthma, uncomplicated; Z87.42 Personal history of other diseases of the female genital tract; Z98.890 Other specified postprocedural states; Z88.0 Allergy status to penicillin; Z88.2 Allergy status to sulfonamides; Z91.018 Allergy to other foods
CPT/HCPCS: 99284; 96361; 96374; 96375; 36415; 84703; 85025; 80048; 81001; 76830; 93976; J2270; J2405; J7030

== ENCOUNTER 2018-04-22 13:02 | Emergency (ER) | payer BC ==
[2018-04-22] MEDS ORDERED: NORMAL SALINE 1000 ML 1,000 ML IV ONE (14:18)
--- NOTE | 2018-04-22 14:20 | ER Document Report ---
ED Medical Screen (RME) - General Chief Complaint: Abdominal Pain Stated Complaint: ABDOMINAL PAIN Time Seen by Provider: 04/22/18 14:12 Mode of Arrival: Ambulatory Information source: Patient Notes: 22-year-old female presents to the emergency room with right lower abdominal pain. Patient was evaluated yesterday and had a pelvic ultrasound which was essentially unremarkable. She presents with persistent pain. She does have history of both ovarian cyst and ileitis. She denies any vaginal discharge. TRAVEL OUTSIDE OF THE [place] IN LAST 30 DAYS: No - Related Data Allergies/Adverse Reactions: Penicillins Allergy (Severe, Verified 04/21/18 20:52) cinnamon Allergy (Verified 04/21/18 19:14) Sulfa (Sulfonamide Antibiotics) Allergy (Verified 04/21/18 19:12) ketorolac Adverse Reaction (Mild, Verified 04/21/18 20:52) itching Past Medical History Pulmonary Medical History: Reports: Hx Asthma, Hx Bronchitis Renal/ Medical History: Denies: Hx Peritoneal Dialysis Psychiatric Medical History: Reports: Hx Depression, Hx Post Traumatic Stress Disorder Past Surgical History: Reports: Hx Oral Surgery - wisdoms - Immunizations Immunizations up to date: Yes Hx Diphtheria, Pertussis, Tetanus Vaccination: Yes History of Influenza Vaccine for 12/2016 - 05/2017 Season: No Physical Exam - Vital signs Vitals: Temp Pulse Resp BP Pulse Ox 98.4 F 78 16 100/57 L 99 04/22/18 13:40 04/22/18 13:40 04/22/18 13:40 04/22/18 13:40 04/22/18 13:40 Course - Vital Signs Vital signs: Temp Pulse Resp BP Pulse Ox 98.4 F 78 16 100/57 L 99 04/22/18 13:40 04/22/18 13:40 04/22/18 13:40 04/22/18 13:40 04/22/18 13:40
[2018-04-22 14:51] LABS: APPEARANCE,URINE SLIGHTLY-CLOUDY; BILIRUBIN,URINE NEGATIVE (NEGATIVE); COLOR,URINE YELLOW; GLUCOSE, URINE NEGATIVE (NEGATIVE); KETONES,URINE NEGATIVE (NEGATIVE); LEUKOCYTE ESTERASE,URINE NEGATIVE (NEGATIVE); NITRITE,URINE NEGATIVE (NEGATIVE); PROTEIN,URINE NEGATIVE (NEGATIVE); URINE SPECIFIC GRAVITY 1.019; UROBILINOGEN,URINE NEGATIVE mg/dL (<2.0)
[2018-04-22 14:53] LABS: ABSOLUTE BASOPHILS # (AUTO) 0.1 10^3/uL (0.0-0.2); ABSOLUTE EOSINOPHILS # (AUTO) 0.4 10^3/uL (0.0-0.6); ABSOLUTE LYMPHOCYTES (AUTO) 3.2 10^3/uL (0.5-4.7); ABSOLUTE MONOCYTES (AUTO) 0.6 10^3/uL (0.1-1.4); ABSOLUTE NEUT (AUTO) 7.6 10^3/uL (1.7-8.2); BASOPHILS % (AUTO) 0.8 % (0-2); EOSINOPHILS % (AUTO) 3.6 % (0-6); HEMATOCRIT 41.8 % (36.0-47.0); HEMOGLOBIN 14.1 g/dL (12.0-15.5); LYMPHOCYTES % (AUTO) 26.7 % (13-45); MEAN CORPUSCULAR HEMOGLOBIN 30.1 pg (27.0-33.4); MEAN CORPUSCULAR HGB CONC 33.7 g/dL (32.0-36.0); MEAN CORPUSCULAR VOLUME 89 fl (80-97); MONOCYTES % (AUTO) 4.8 % (3-13); PLATELET COUNT 395 10^3/uL (150-450); RED BLOOD COUNT 4.68 10^6/uL (3.72-5.28); RED CELL DISTRIBUTION WIDTH 13.6 % (11.5-14.0); SEGMENTED NEUTROPHILS % (AUTO) 64.1 % (42-78); TOTAL CELLS COUNTED % (AUTO) 100 %; WHITE BLOOD COUNT 11.9 10^3/uL (4.0-10.5)
[2018-04-22 15:11] LABS: ALANINE AMINOTRANSFERASE 12 U/L (9-52); ALBUMIN 3.6 g/dL (3.5-5.0); ALKALINE PHOSPHATASE 41 U/L (38-126); ANION GAP 5 (5-19); ASPARTATE AMINO TRANSFERASE 12 U/L (14-36); BILIRUBIN,DIRECT 0.2 mg/dL (0.0-0.4); BILIRUBIN,TOTAL 0.3 mg/dL (0.2-1.3); BLOOD UREA NITROGEN 8 mg/dL (7-20); CARBON DIOXIDE 26 mmol/L (22-30); CHLORIDE 109 mmol/L (98-107); GLUCOSE 88 mg/dL (75-110); SODIUM 139.5 mmol/L (137-145); TOTAL PROTEIN 5.9 g/dL (6.3-8.2)
[2018-04-22 15:22] LABS: POTASSIUM 5.1 mmol/L (3.6-5.0)
--- NOTE | 2018-04-22 16:35 | ER Document Report ---
ED GI/ - General Chief Complaint: Abdominal Pain Stated Complaint: ABDOMINAL PAIN Time Seen by Provider: 04/22/18 14:12 Mode of Arrival: Ambulatory Information source: Patient Notes: Patient is a 22-year-old female who supposedly has had some intermittent right lower quadrant pelvic pain since December. She had a CT scan up in [place] in March and was told that they saw some nonspecific inflammation to the right lower quadrant. They could not see the appendix. Patient left AGAINST MEDICAL ADVICE. Patient has had intermittent pains persistently since that time. She denies nausea, vomiting, fevers, diarrhea, or dysuria. She denies any vaginal discharge. Patient was seen here yesterday with an unremarkable transvaginal ultrasound. was negative and the patient was provided pain medications and discharged home. Patient states she is still having pain to return. CT scan was ordered in triage. She denies any aggravating or relieving factors. She denies any heavy menstrual periods. She denies any radiation of the pain. She describes it as "cramping and sharp". Patient does have a history of right ovarian cystectomy this past December. TRAVEL OUTSIDE OF THE [place] IN LAST 30 DAYS: No - HPI Patient complains to provider of: Other - See above Onset: Other - See above Similar symptoms previously: Yes Recently seen / treated by doctor: Yes - Related Data Allergies/Adverse Reactions: Penicillins Allergy (Severe, Verified 04/21/18 20:52) cinnamon Allergy (Verified 04/21/18 19:14) Sulfa (Sulfonamide Antibiotics) Allergy (Verified 04/21/18 19:12) ketorolac Adverse Reaction (Mild, Verified 04/21/18 20:52) itching Past Medical History - General Information source: Patient - Social History Smoking Status: Current Every Day Smoker Family History: Arthritis, CAD, CVA, DM, Hyperlipidemia, Hypertension Patient has suicidal ideation: No Patient has homicidal ideation: No Pulmonary Medical History: Reports: Hx Asthma, Hx Bronchitis Renal/ Medical History: Denies: Hx Peritoneal Dialysis Psychiatric Medical History: Reports: Hx Depression, Hx Post Traumatic Stress Disorder Past Surgical History: Reports: Hx Oral Surgery - wisdoms - Immunizations Immunizations up to date: Yes Hx Diphtheria, Pertussis, Tetanus Vaccination: Yes Review of Systems - Review of Systems Constitutional: denies: Fever EENT: denies: Eye discharge, Nose discharge Cardiovascular: denies: Chest pain, Palpitations Respiratory: denies: Short of breath Gastrointestinal: denies: Vomiting Genitourinary: denies: Dysuria Musculoskeletal: denies: Leg swelling Skin: denies: Rash Neurological/Psychological: Other - no slurred speech -: Yes All other systems reviewed and negative Physical Exam - Vital signs Vitals: Temp Pulse Resp BP Pulse Ox 98.4 F 78 16 100/57 L 99 04/22/18 13:40 04/22/18 13:40 04/22/18 13:40 04/22/18 13:40 04/22/18 13:40 Notes: Reviewed vital signs and nursing note as charted by RN. CONSTITUTIONAL: Alert and oriented and responds appropriately to questions. Well-appearing; well-nourished HEAD: Normocephalic; atraumatic EYES: Sclerae non-icteric CARD: Regular rate and rhythm; no murmurs; symmetric distal pulses RESP: Normal chest excursion without splinting or tachypnea; breath sounds clear and equal bilaterally ABD/GI: Normal bowel sounds; non-distended; mild tenderness to palpation of the right lower quadrant without rebound or guarding. No palpable masses present BACK: The back appears normal and is non-tender to palpation EXT: Normal ROM in all joints; non-tender to palpation; no edema SKIN: No acute lesions noted NEURO: CN 2-12 intact; 5/5 bilateral upper and lower extremity strength with sensation intact to light touch PSYCH: The patient's mood and manner are appropriate. Grooming and personal hygiene are appropriate. Course - Re-evaluation Re-evalutation: Given the above history and physical examination, we will proceed with a CT scan of the abdomen pelvis and order a transvaginal ultrasound for further assessment 04/22/18 16:34 Labs as recorded. Pelvic examination is pending. CT scan will be performed in 10 minutes. 04/22/18 17:49 CT scan as well as chlamydia/gonorrhea is unremarkable. I will perform a pelvic examination with marketing analytics manager present. Pain is improved with the pain medications. 04/22/18 17:56 On pelvic examination the patient has no obvious external or internal lesions. No cervical motion tenderness. No adnexal masses or tenderness. - Vital Signs Vital signs: Temp Pulse Resp BP Pulse Ox 98.4 F 78 16 100/57 L 99 04/22/18 13:40 04/22/18 13:40 04/22/18 13:40 04/22/18 13:40 04/22/18 13:40 - Laboratory Result Diagrams: 04/22/18 14:34 04/22/18 14:34 Laboratory results interpreted by me: 04/22/18 04/22/18 04/22/18 13:28 14:34 14:34 WBC 11.9 H Potassium 5.1 H D Chloride 109 H AST 12 L Total Protein 5.9 L Urine Blood SMALL H Discharge - Discharge Clinical Impression: Right lower quadrant abdominal pain Condition: Good Disposition: HOME, SELF-CARE Additional Instructions: Come back immediately for any fevers, increased pain, change in location or quality of pain, persistent vomiting, or any other acute problems. Please follow-up with [facility] as we have discussed for possible laparoscopy and reevaluation. Prescriptions: Oxycodone HCl/Acetaminophen [Percocet 5-325 mg Tablet] 1 tab PO Q6 #15 tablet Referrals: JASPAL GAFFNEY MD [ACTIVE STAFF] - Follow up as needed
[2018-04-22] MEDS ORDERED: MORPHINE SULFATE 10 MG/ML INJ IV ONE (16:47)
[2018-04-22 17:34] LABS: CHLAM PCR NOT DETECTED (NOT DETECT); GON PCR NOT DETECTED (NOT DETECT)
--- NOTE | 2018-04-22 17:43 | RADIOLOGY REPORT (SQ) ---
EXAM DESCRIPTION: CT ABD/PELVIS WITH IV ORAL COMPLETED DATE/TIME: 04/22/2018 5:22 pm REASON FOR STUDY: right lower abdominal pain COMPARISON: None. TECHNIQUE: CT scan of the abdomen and pelvis performed using helical scanning technique with dynamic intravenous contrast injection. Patient drank oral contrast. Images reviewed with lung, soft tissue , and bone windows. Reconstructed coronal and sagittal MPR images reviewed. Delayed images for evalua tion of the urinary system also acquired. All images stored on PACS. All CT scanners at this facility use dose modulation, iterative reconstruction, and/or weight based d osing when appropriate to reduce radiation dose to as low as reasonably achievable (ALARA). [facility]: Dose Right [facility]: CareDose [facility]: Dose Right [facility]: Teradose 4D [facility]: Leftronic CONTRAST TYPE AND DOSE: contrast/concentration: Isovue 350.00 mg/ml; Total Contrast Delivered: 79.0 ml; Total Saline Delivered: 68.0 ml RENAL FUNCTION: Creatinine 0.7 RADIATION DOSE: CT Rad equipment meets quality standard of care and radiation dose reduction techniq ues were employed. CTDIvol: 6.4 - 9.0 mGy. DLP: 745 mGy-cm.. LIMITATIONS: None. FINDINGS: LOWER CHEST: No significant findings. No nodules or infiltrates. LIVER: Normal size. No masses. No dilated ducts. SPLEEN: Normal size. No focal lesions. PANCREAS: No masses. No significant calcifications. No adjacent inflammation or peripancreatic fluid collections. Pancreatic duct not dilated. GALLBLADDER: No identified stones by CT criteria. No inflammatory changes to suggest cholecystitis. ADRENAL GLANDS: No significant masses or asymmetry. RIGHT KIDNEY AND URETER: No solid masses. No significant calcifications. No hydronephrosis or hyd roureter. LEFT KIDNEY AND URETER: No solid masses. No significant calcifications. No hydronephrosis or hydr oureter. AORTA AND VESSELS: No aneurysm. No dissection. Renal arteries, SMA, celiac without stenosis. RETROPERITONEUM: No retroperitoneal adenopathy, hemorrhage or masses. BOWEL AND PERITONEAL CAVITY: No masses or inflammatory changes. No free fluid or peritoneal masses. APPENDIX: Normal. PELVIS: No mass. No free fluid. Normal bladder. ABDOMINAL WALL: No masses. No hernias. BONES: No significant or acute findings. OTHER: No other significant finding. IMPRESSION: NO SIGNIFICANT OR ACUTE FINDING IN THE ABDOMEN OR PELVIS ON CT SCAN WITH IV CONTRAST. TECHNICAL DOCUMENTATION: JOB ID: [id number] Quality ID # [id number]: Final reports with documentation of one or more dose reduction techniques (e.g., Au tomated exposure control, adjustment of the mA and/or kV according to patient size, use of iterative reconstruction technique) 2010 [employer]- All Rights Reserved Reading location - IP/workstation name: [email or web address]
[2018-04-22 18:28] LABS: BACTERIA (WET MOUNT) 4+ BACTERIA SEEN; EPITHELIALS (WET MOUNT) 4+ EPITHELIALS SEEN; RBCS (WET MOUNT) NO RBCS SEEN; T.VAGINALIS (WET MOUNT) NO TRICHOMONAS SEEN; WBCS (WET MOUNT) 3+ WBCS SEEN; YEAST (WET MOUNT) BUDDING YEAST SEEN
[2018-04-22] MEDS ORDERED: FLUCONAZOLE 100 MG TABLET PO ONE (18:40)
[2018-04-22 18:54] VITALS: BP 114/81
[2018-04-22 20:04] LABS: CHLAM PCR NOT DETECTED (NOT DETECT); GON PCR NOT DETECTED (NOT DETECT)
== END 2018-04-22 18:55 | disposition home or self-care (01) ==
LOC: ER 13:02
DX: R10.31 Right lower quadrant pain (principal); R10.813 Right lower quadrant abdominal tenderness; R10.2 Pelvic and perineal pain; F17.200 Nicotine dependence, unspecified, uncomplicated; J45.909 Unspecified asthma, uncomplicated; Z87.42 Personal history of other diseases of the female genital tract; Z98.890 Other specified postprocedural states; Z88.0 Allergy status to penicillin; Z91.018 Allergy to other foods; Z88.2 Allergy status to sulfonamides
CPT/HCPCS: 99284; 96361; 96374; 36415; 87210; 85025; 80053; 81001; 87491; 87591; 74177; J2270; J7030

== ENCOUNTER 2018-05-17 13:36 | Emergency (ER) | payer BC ==
[2018-05-17 13:53] VITALS: BP 116/66
== END 2018-05-17 16:50 | disposition left against medical advice (07) ==
LOC: ER 13:36
DX: Z53.21 Procedure and treatment not carried out due to patient leaving prior to being seen by health care provider (principal); R10.9 Unspecified abdominal pain

== ENCOUNTER 2018-05-21 23:54 | Emergency (ER) | payer BC ==
[2018-05-22] MEDS ORDERED: PROMETHAZINE HCL 25 MG TABLET PO ONE (02:43)
[2018-05-22] MEDS ORDERED: OXYCODONE-ACETAMINOPHEN 5-325 MG TABLET PO ONE (02:43)
--- NOTE | 2018-05-22 02:45 | ER Document Report ---
ED GI/ - General Chief Complaint: Abdominal Pain Stated Complaint: ABDOMINAL PAIN Time Seen by Provider: 05/22/18 02:34 Notes: Patient is a 22-year-old female that comes to the emergency department for chief complaint of right sided pelvic pain, she states pain is intermittent but occasionally very sharp causing her nausea. She has felt this intermittently for almost a week. She states she has a history of very large cysts, she had [place]oscopically [place]. She denies any other surgeries. She is on oral contraceptive. She denies vaginal bleeding or discharge, dysuria, flank pain, or any other locations of pain. She reports normal bowel movements. Friend at bedside. TRAVEL OUTSIDE OF THE [place] IN LAST 30 DAYS: No - Related Data Allergies/Adverse Reactions: Penicillins Allergy (Severe, Verified 05/21/18 23:56) cinnamon Allergy (Verified 05/21/18 23:56) Sulfa (Sulfonamide Antibiotics) Allergy (Verified 05/21/18 23:56) ketorolac Adverse Reaction (Mild, Verified 05/21/18 23:56) itching Past Medical History - General Information source: Patient - Social History Smoking Status: Never Smoker Frequency of alcohol use: None Drug Abuse: None Lives with: Family Family History: Arthritis, CAD, CVA, DM, Hyperlipidemia, Hypertension Pulmonary Medical History: Reports: Hx Asthma, Hx Bronchitis Renal/ Medical History: Denies: Hx Peritoneal Dialysis Psychiatric Medical History: Reports: Hx Depression - anxiety/PTSD, Hx Post Traumatic Stress Disorder Past Surgical History: Reports: Hx Oral Surgery - wisdoms - Immunizations Immunizations up to date: Yes Hx Diphtheria, Pertussis, Tetanus Vaccination: Yes Review of Systems - Review of Systems Constitutional: No symptoms reported EENT: No symptoms reported Cardiovascular: No symptoms reported Respiratory: No symptoms reported Gastrointestinal: See HPI Genitourinary: See HPI Female Genitourinary: See HPI Musculoskeletal: No symptoms reported Skin: No symptoms reported Hematologic/Lymphatic: No symptoms reported Neurological/Psychological: No symptoms reported Physical Exam - Vital signs Vitals: Temp Pulse Resp BP Pulse Ox 98.5 F 100 20 145/73 H 100 05/21/18 23:55 05/21/18 23:55 05/21/18 23:55 05/21/18 23:55 05/21/18 23:55 - Notes Notes: GENERAL: Alert, interacts well. No acute distress. HEAD: Normocephalic, atraumatic. EYES: Pupils equal, round, and reactive to light. Extraocular movements intact. ENT: Oral mucosa moist, tongue midline. Oropharynx unremarkable. Airway patent. Nares patent, no nasal septal hematoma, TM's intact. NECK: Full range of motion. Supple. Trachea midline. LUNGS: Clear to auscultation bilaterally, no wheezes, rales, or rhonchi. No respiratory distress. HEART: Regular rate and rhythm. No murmur ABDOMEN: Some tenderness in the right pelvic area, no specific McBurney's tenderness noted, otherwise unremarkable abdominal exam. GENITOURINARY: Deferred EXTREMITIES: Moves all 4 extremities spontaneously. No edema, normal radial and dorsalis pedis pulses bilaterally. No cyanosis. BACK: no cervical, thoracic, lumbar midline tenderness. No saddle anesthesia, normal distal neurovascular exam. NEUROLOGICAL: Alert and oriented x3. Normal speech. [cranial nerves II through XII grossly intact]. PSYCH: Normal affect, normal mood. SKIN: Warm, dry, normal turgor. No rashes or lesions noted. Course - Re-evaluation Re-evalutation: Patient is very well-appearing. Vital signs unremarkable. She does have some right pelvic tenderness suggestive of ovarian cyst, otherwise her exam is very unremarkable. CBC, chemistry unremarkable. Urinalysis unremarkable. Ultrasound showing small right-sided ovarian cyst. I did offer pelvic examination for thorough evaluation of pelvic pain but patient declined. Provided with [place] to go back, discussed ovarian cyst, expectations, follow-up, and return precautions. Patient states satisfaction and agreement. - Vital Signs Vital signs: Temp Pulse Resp BP Pulse Ox 98.2 F 88 15 119/77 100 05/22/18 05:05 05/22/18 05:05 05/22/18 05:05 05/22/18 05:05 05/22/18 05:05 - Laboratory Result Diagrams: 05/22/18 02:55 05/22/18 02:55 Laboratory results interpreted by me: 05/22/18 05/22/18 02:55 02:55 RDW 14.1 H Chloride 111 H Carbon Dioxide 21 L Discharge - Discharge Clinical Impression: Lower abdominal pain Condition: Stable Disposition: HOME, SELF-CARE Additional Instructions: You do have an ovarian cyst on the right side. This is small, this should resolve on its own rapidly. Follow-up routinely with primary care, no additional imaging is recommended for this type of cyst. Return if you worsen including severe worsening pain, vomiting, fever, or any other concerning or worsening symptoms. Forms: Return to Work
[2018-05-22 03:09] LABS: ABSOLUTE BASOPHILS # (AUTO) 0.1 10^3/uL (0.0-0.2); ABSOLUTE EOSINOPHILS # (AUTO) 0.4 10^3/uL (0.0-0.6); ABSOLUTE LYMPHOCYTES (AUTO) 3.9 10^3/uL (0.5-4.7); ABSOLUTE MONOCYTES (AUTO) 0.5 10^3/uL (0.1-1.4); EOSINOPHILS % (AUTO) 4.4 % (0-6); HEMATOCRIT 37.7 % (36.0-47.0); HEMOGLOBIN 13.2 g/dL (12.0-15.5); LYMPHOCYTES % (AUTO) 39.5 % (13-45); MEAN CORPUSCULAR HEMOGLOBIN 30.8 pg (27.0-33.4); MEAN CORPUSCULAR VOLUME 88 fl (80-97); MONOCYTES % (AUTO) 5.4 % (3-13); PLATELET COUNT 358 10^3/uL (150-450); RED BLOOD COUNT 4.29 10^6/uL (3.72-5.28); RED CELL DISTRIBUTION WIDTH 14.1 % (11.5-14.0); SEGMENTED NEUTROPHILS % (AUTO) 49.7 % (42-78); TOTAL CELLS COUNTED % (AUTO) 100 %
[2018-05-22 03:23] LABS: ALANINE AMINOTRANSFERASE 21 U/L (9-52); ALBUMIN 4.3 g/dL (3.5-5.0); ALKALINE PHOSPHATASE 55 U/L (38-126); ANION GAP 11 (5-19); APPEARANCE,URINE CLEAR; ASPARTATE AMINO TRANSFERASE 14 U/L (14-36); BILIRUBIN,DIRECT 0.1 mg/dL (0.0-0.4); BILIRUBIN,TOTAL 0.2 mg/dL (0.2-1.3); BILIRUBIN,URINE NEGATIVE (NEGATIVE); BLOOD UREA NITROGEN 7 mg/dL (7-20); CALCIUM 9.7 mg/dL (8.4-10.2); CARBON DIOXIDE 21 mmol/L (22-30); CHLORIDE 111 mmol/L (98-107); COLOR,URINE YELLOW; GLUCOSE 91 mg/dL (75-110); GLUCOSE, URINE NEGATIVE (NEGATIVE); KETONES,URINE NEGATIVE (NEGATIVE); LEUKOCYTE ESTERASE,URINE NEGATIVE (NEGATIVE); NITRITE,URINE NEGATIVE (NEGATIVE); PROTEIN,URINE NEGATIVE (NEGATIVE); SODIUM 142.8 mmol/L (137-145); TOTAL PROTEIN 6.8 g/dL (6.3-8.2); URINE SPECIFIC GRAVITY 1.017; UROBILINOGEN,URINE NEGATIVE mg/dL (<2.0)
--- NOTE | 2018-05-22 04:17 | RADIOLOGY REPORT (SQ) ---
EXAM DESCRIPTION: US TRANSVAGINAL COMPLETED DATE/TME: 05/22/2018 02:43 CLINICAL HISTORY: 22 years, Female, right pelvic pain, hx large cysts COMPARISON: None. TECHNIQUE: Transvaginal pelvic ultrasound LIMITATIONS: None. FINDINGS: The uterus is anteverted and measures 7.2 x 3.1 x 4.4 cm. The endometrium is normal thickness measuring up to 8 mm. The cervix appears unremarkable. The right ovary measures 3.5 x 1.7 x 2.0 cm. There is a right ovarian cyst that measures 1.9 x 1.3 x 1.4 cm. No follow-up imaging is recommended. The right ovary demonstrates normal Doppler flow. The left ovary is not uniquely identified No significant free fluid. IMPRESSION: Right ovarian simple cyst. No follow-up imaging is recommended. Otherwise, unremarkable pelvic ultrasound copyright 2010 [employer]- All Rights Reserved
[2018-05-22] MEDS ORDERED: MORPHINE SULFATE IR 15 MG TABLET PO ONE (04:47)
[2018-05-22] MEDS ORDERED: HYDROCODONE/ACETAMINOPHEN 5-325 MG (6 TAB/ER DISP) PO PRN (04:47)
[2018-05-22 05:06] VITALS: BP 119/77
== END 2018-05-22 05:10 | disposition home or self-care (01) ==
LOC: ER 23:54
DX: N83.291 Other ovarian cyst, right side (principal); R10.2 Pelvic and perineal pain; R11.0 Nausea; J45.909 Unspecified asthma, uncomplicated; Z79.3 Long term (current) use of hormonal contraceptives; Z88.0 Allergy status to penicillin; Z91.018 Allergy to other foods; Z88.2 Allergy status to sulfonamides
CPT/HCPCS: 36415; 76830; 80053; 81001; 81025; 85025; 93976; 99284

== ENCOUNTER 2018-05-22 20:13 | Emergency (ER) | payer BC ==
[2018-05-23] MEDS ORDERED: MORPHINE SULFATE IR 15 MG TABLET PO ONE (01:01)
--- NOTE | 2018-05-23 01:27 | ER Document Report ---
ED General - General Chief Complaint: Abdominal Pain Stated Complaint: ABDOMINAL PAIN Time Seen by Provider: 05/23/18 00:46 Primary Care Provider: WES GAFFNEY MD [CONVERSION] - Follow up in 3-5 days Notes: Patient is a 22-year-old female presents with complaint of lower abdominal pain. She was seen here yesterday. She had an ultrasound which showed a small simple right ovarian cyst. She says that she is currently on control. She has menstrual periods once every 2 months. Last menstrual period was a month ago. Her test was negative. According to the provider note from yesterday patient refused pelvic exam. Patient was sent home with a pack of 6 Bruno tablets. Patient says that the Bruno tablets are not working. She said when she is received morphine here it did help some. Patient says she had to come back because the pain is so bad that when she walks the pain in her right lower abdomen hurts and therefore she has to have her 2 friends help her walk. She has 2 young men in the room here with her. Patient initially said this pain just started in the last 2 days ago; however, if there is that she is been here a few times in the last month for similar pains. Patient then says that she gets this pain and it has been recurrent for a while. She says she has had cyst removal of her ovaries surgically. She lived in [place] up until 2 months ago when she moved here. The other 2 times when she visited here in the last month she had a CT scan as well as ultrasounds which were both negative. TRAVEL OUTSIDE OF THE [place]S. IN LAST 30 DAYS: No - Related Data Allergies/Adverse Reactions: Penicillins Allergy (Severe, Verified 05/21/18 23:56) cinnamon Allergy (Verified 05/21/18 23:56) Sulfa (Sulfonamide Antibiotics) Allergy (Verified 05/21/18 23:56) ketorolac Adverse Reaction (Mild, Verified 05/21/18 23:56) itching Past Medical History - Social History Smoking Status: Unknown if Ever Smoked Frequency of alcohol use: None Drug Abuse: None Family History: Arthritis, CAD, CVA, DM, Hyperlipidemia, Hypertension Pulmonary Medical History: Reports: Hx Asthma, Hx Bronchitis Renal/ Medical History: Denies: Hx Peritoneal Dialysis Psychiatric Medical History: Reports: Hx Depression - anxiety/PTSD, Hx Post Traumatic Stress Disorder Past Surgical History: Reports: Hx Oral Surgery - wisdoms - Immunizations Immunizations up to date: Yes Hx Diphtheria, Pertussis, Tetanus Vaccination: Yes Review of Systems - Review of Systems Notes: My Normal Review Basic REVIEW OF SYSTEMS: CONSTITUTIONAL : Denies fever, chills, or sweats. Denies recent illness. RESPIRATORY: Denies cough, cold, or chest congestion. Denies shortness of breath, difficulty breathing, or wheezing. GASTROINTESTINAL: Right lower abdominal pain. Denies nausea, vomiting, or diarrhea. GENITOURINARY: Denies difficulty urinating, painful urination, burning, frequency, or blood in urine. FEMALE GENITOURINARY: Denies vaginal bleeding, abnormal or irregular periods. LMP: One month ago MUSCULOSKELETAL: Denies neck or back pain or joint pain or swelling. SKIN: Denies rash or skin lesions. HEMATOLOGIC : Denies easy bruising or bleeding. LYMPHATIC: Denies swollen, enlarged glands. NEUROLOGICAL: Denies altered mental status or loss of consciousness. Denies headache. Denies weakness or paralysis or loss of use of either side. Denies problems with gait or speech. Denies sensory or motor loss. ALL OTHER SYSTEMS REVIEWED AND NEGATIVE. Physical Exam - Vital signs Vitals: Temp Pulse Resp BP Pulse Ox 98.6 F 83 20 147/73 H 100 05/22/18 20:19 05/22/18 20:19 05/22/18 20:19 05/22/18 20:19 05/22/18 20:19 - Notes Notes: General Appearance: Well nourished, alert, cooperative, no acute distress, no obvious discomfort. Vitals: reviewed, See vital signs table. Head: no swelling or tenderness to the head Eyes: PERRL, EOMI, Conjuctiva clear Mouth: No decreasd moisture Throat: No tonsillar inflammation, No airway obstruction, No lymphadenopathy Neck: Supple, no neck tenderness, No thyromegaly Lungs: No wheezing, No rales, No rhonci, No accessory muscle use, good air exchange bilaterally. Heart: Normal rate, Regular rythm, No murmur, no rub Abdomen: Normal BS, soft, No rigidity, pain to palpation is mainly over the right pelvic region., No guarding, no rebound, no abdominal masses, no organomegaly Pelvic exam: Normal external genitalia. Some whitish discharge. No blood in vaginal vault. She did not have significant tenderness during pelvic exam. Female inspector timers was Nayla Jiménez RN. Extremities: strength 5/5 in all extremities, good pulses in all extremities, no swelling or tenderness in the extremities, no edema. Skin: warm, dry, appropriate color, no rash Neuro: speech clear, oriented x 3, normal affect, responds appropriately to questions. Course - Re-evaluation Re-evalutation: 05/23/18 05:52 Patient's CBC does not show leukocytosis or any concerning findings. I did not repeat ultrasound as she just had one yesterday. Her history was initially that she had just started having this pain however looking through records it appears this been an ongoing for a while and patient admitted eventually that this has been ongoing since fall of last year. She is just moved here from [place]. She said in [place] she was seeing an [facility] doctor. She says she did have a surgery to remove a cyst once and since then has been followed closely. There was some contradictions in her history versus what was previously written on her note from yesterday. Patient initially said that she was told that her ultrasound showed a cyst versus a large mass that this was causing severe pain and that she had to follow-up urgently with the pet house sitter. When I reviewed the notes the patient has just a small simple cyst that does not require ultrasound follow-up per the radiologist. The provider who saw the patient yesterday is Chris Hernandez and I did speak with him and he said that he made clear to the patient that the cyst was simple and did not require emergent follow-up and that she could call [facility] for routin e follow-up. Patient also told me that she was not offered a pelvic exam however again, Mr. Hernandez said that he talked about performing pelvic exam and recommended it but the patient refused. Also, patient says that her pain is so severe that she cannot walk without the help of her friends. Said any movements just makes the pain severe. On exam however she does not appear to be in much pain. When I went to do the pelvic exam I asked her to scoot on the bed she was able to put her feet down on the bed and lift her but off the bed and drop back on the bed and scoot down the bed doing this over and over again without showing any signs of pain which was somewhat surprising to me being the description that she initially said of her pain. I therefore did go on the controlled substance database and did looked up her history. I was able to pull up [place]'s controlled substance database as well and appears that since December patient has been receiving on average 2 prescriptions for opiates per month. Most prescriptions were by Dr. Franco in [place] however she also has a few opiate prescriptions from other providers. This is concerning to me that the patient may have developed an opiate dependence over this time. I suspect that the patient unfortunately may have an opiate addiction. I did talk to the patient and was very upfront with her about this. I informed her that I do not see anything concerning on exam and that her exam was very benign. She has some pain to palpation of her abdomen but it is not severe on exam. She is able to move around the bed without showing any signs of pain. Also, she has a normal ultrasound yesterday which just shows a small ovarian cyst which is a simple cyst which should not be causing significant pain. I informed her that I do not see an indication for opiate medications at this time and I informed her that I feel that prescribing her more opiate medications would be doing her more harm than good as I do not want to potentially make worse dependency she may have developed. Patient actually shows understanding of this. She did request another dose of morphine before being discharged but informed her that I did not think there was a good idea. I did offer her Tylenol and she did accept taking Tylenol. Her wet prep does show evidence of bacterial vaginosis. Will place her on Flagyl. I will give her referral to [facility] for follow-up. I encouraged her to call [facility] to make a follow-up appointment. Encouraged to return to ER if she has significantly increasing pain, fevers, vaginal bleeding, or if she feels unwell. Patient agrees with plan and was discharged home. Dictation of this chart was performed using voice recognition software; therefore, there may be some unintended grammatical errors. - Vital Signs Vital signs: Temp Pulse Resp BP Pulse Ox 98.2 F 72 18 120/75 96 05/23/18 04:07 05/23/18 04:07 05/23/18 04:07 05/23/18 04:07 05/23/18 04:07 - Laboratory Result Diagrams: 05/23/18 03:19 Discharge - Discharge Clinical Impression: Lower abdominal pain, Bacterial vaginosis Condition: Good Disposition: HOME, SELF-CARE Additional Instructions: Your ultrasound yesterday showed a small simple cyst on the right ovary. I am not finding anything on exam or on your blood work or workup from yesterday that would suggest why you have severe pain. As discussed with you I do have concerns that you have received several prescriptions for opiate pain medicines over the last several months. I feel that this is likely because your body has become dependent on these medicines and therefore without them you have significant pain. The only thing or finding on my exam at this time is that you do have some evidence of bacterial vaginosis. We will treat this with an antibiotic called Flagyl. Do not drink alcohol when taking this antibiotic. Please follow-up with [facility]. The number to [facility] is under the name Dr. Lamont Gaffney on your paperwork. Please return to the ER if you have fevers, heavy vaginal bleeding, or if you feel that you are worsening. Prescriptions: Metronidazole [Flagyl 500 mg Tablet] 500 mg PO BID #14 tablet Referrals: WES GAFFNEY MD [CONVERSION] - Follow up in 3-5 days
[2018-05-23 01:33] LABS: BACTERIA (WET MOUNT) 4+ BACTERIA SEEN; EPITHELIALS (WET MOUNT) 4+ EPITHELIALS SEEN; T.VAGINALIS (WET MOUNT) NO TRICHOMONAS SEEN; WBCS (WET MOUNT) NO WBCS SEEN; YEAST (WET MOUNT) NO YEAST SEEN
[2018-05-23 03:12] LABS: CHLAM PCR NOT DETECTED (NOT DETECT); GON PCR NOT DETECTED (NOT DETECT)
[2018-05-23 03:32] LABS: ABSOLUTE BASOPHILS # (AUTO) 0.1 10^3/uL (0.0-0.2); ABSOLUTE EOSINOPHILS # (AUTO) 0.4 10^3/uL (0.0-0.6); ABSOLUTE MONOCYTES (AUTO) 0.6 10^3/uL (0.1-1.4); MEAN CORPUSCULAR HGB CONC 34.7 g/dL (32.0-36.0); TOTAL CELLS COUNTED % (AUTO) 100 %
[2018-05-23 03:38] LABS: ABSOLUTE LYMPHOCYTES (AUTO) 3.8 10^3/uL (0.5-4.7); ABSOLUTE NEUT (AUTO) 4.1 10^3/uL (1.7-8.2); BASOPHILS % (AUTO) 1.2 % (0-2); EOSINOPHILS % (AUTO) 4.8 % (0-6); HEMATOCRIT 36.3 % (36.0-47.0); HEMOGLOBIN 12.6 g/dL (12.0-15.5); LYMPHOCYTES % (AUTO) 41.9 % (13-45); MEAN CORPUSCULAR HEMOGLOBIN 30.6 pg (27.0-33.4); MEAN CORPUSCULAR VOLUME 88 fl (80-97); MONOCYTES % (AUTO) 6.9 % (3-13); PLATELET COUNT 321 10^3/uL (150-450); RED BLOOD COUNT 4.11 10^6/uL (3.72-5.28); SEGMENTED NEUTROPHILS % (AUTO) 45.2 % (42-78); WHITE BLOOD COUNT 9.1 10^3/uL (4.0-10.5)
[2018-05-23] MEDS ORDERED: ACETAMINOPHEN 325 MG TABLET PO ONE (03:50)
[2018-05-23] MEDS ORDERED: METRONIDAZOLE 500 MG TABLET PO ONE (03:50)
[2018-05-23 04:10] VITALS: BP 120/75
== END 2018-05-23 04:10 | disposition home or self-care (01) ==
LOC: ER 20:13
DX: N76.0 Acute vaginitis (principal); B96.89 Other specified bacterial agents as the cause of diseases classified elsewhere; R10.31 Right lower quadrant pain; R10.9 Unspecified abdominal pain; R10.30 Lower abdominal pain, unspecified; Z79.899 Other long term (current) drug therapy; J45.909 Unspecified asthma, uncomplicated
CPT/HCPCS: 36415; 85025; 87210; 87491; 87591; 99284

== ENCOUNTER 2018-08-03 18:39 | Emergency (ER) | payer BC ==
[2018-08-03 19:36] VITALS: BP 106/66
--- NOTE | 2018-08-03 20:10 | ER Document Report ---
HPI - HPI Patient complains to provider of: dental pain Time Seen by Provider: 08/03/18 19:55 Onset: Other - 9 days Onset/Duration: Persistent Quality of pain: Achy, Throbbing Severity: Severe Pain Level: 5 Context: Patient presents to the emergency department with complaints of upper dental pain for over 9 days. Patient has widespread dental decay. She was evaluated at [place] [facility] and received clindamycin. She reports she does not think it is working because she is hurting still. She reports she is tried to get an appointment at the [facility] but has been unsuccessful at this time. She also reports that she contacted a dentist that needed $100 upfront. She denies other symptoms such as fever vomiting diarrhea. Patient reports her teeth are sensitive to heat or cold. Associated Symptoms: None Exacerbated by: Other - Heat/ cold Relieved by: Denies Similar symptoms previously: Yes Recently seen / treated by doctor: Yes - REPRODUCTIVE Reproductive: DENIES: : Past Medical History - General Information source: Patient Last Menstrual Period: June patient denies - Social History Smoking Status: Current Some Day Smoker Cigarette use (# per day): Yes Frequency of alcohol use: Occasional Drug Abuse: Marijuana Family History: Arthritis, CAD, CVA, DM, Hyperlipidemia, Hypertension Pulmonary Medical History: Reports: Hx Asthma, Hx Bronchitis Renal/ Medical History: Denies: Hx Peritoneal Dialysis Psychiatric Medical History: Reports: Hx Depression - anxiety/PTSD, Hx Post Traumatic Stress Disorder Past Surgical History: Reports: Hx Oral Surgery - [facility]oms - Immunizations Immunizations up to date: Yes Hx Diphtheria, Pertussis, Tetanus Vaccination: Yes Vertical Provider Document - CONSTITUTIONAL Agree With Documented VS: Yes Exam Limitations: No Limitations General Appearance: WD/WN, No Apparent Distress - INFECTION CONTROL TRAVEL OUTSIDE OF THE [place] IN LAST 30 DAYS: No - HEENT HEENT: Atraumatic, Normocephalic Mouth Diagram: 1 - Widespread dental decay patient opens mouth wide no erythema no pustule no swelling clear voice no signs of infection no Ludwigs - NECK Neck: Normal Inspection, Supple. negative: Lymphadenopathy-Left, Lymphadenopathy-Right - RESPIRATORY Respiratory: Breath Sounds Normal, No Respiratory Distress - CARDIOVASCULAR Cardiovascular: Regular Rate - MUSCULOSKELETAL/EXTREMETIES Musculoskeletal/Extremeties: JONATHON MCCAULEY - NEURO Level of Consciousness: Awake, Alert, Appropriate Motor/Sensory: No Motor Deficit - DERM Integumentary: Warm, Dry Course - Re-evaluation Re-evalutation: 08/03/18 20:10 Patient instructed to continue to take the clindamycin. Instructed take Tylenol or Motrin as indicated for pain. Was offered Toradol but patient reports she is allergic. Reports it makes her sick to her stomach. So I ordered some Zofran for her. She was instructed to follow-up with dental. I attempted to look up [place] controlled substance reporting system without success Dictation of this chart was performed using voice recognition software; therefore, there may be some unintended grammatical errors. 08/03/18 20:19 - Vital Signs Vital signs: Temp Pulse Resp BP Pulse Ox 98.0 F 75 16 106/66 97 08/03/18 19:35 08/03/18 19:35 08/03/18 19:35 08/03/18 19:35 08/03/18 19:35 Discharge - Discharge Clinical Impression: Pain, dental Condition: Stable Disposition: HOME, SELF-CARE Instructions: [facility], To[facility] ([facility]) Additional Instructions: *You have been evaluated for dental pain *Take medications as prescribed *Take Tylenol or Motrin for pain as indicated *Follow up with a dentist as soon as possible *Return to ED for worsening condition, changes, needs
[2018-08-03] MEDS ORDERED: ONDANSETRON 4 MG TAB.RAPDIS PO ONE (20:19)
[2018-08-03] MEDS ORDERED: KETOROLAC TROMETHAMINE 60 MG/2 ML SDV IM ONE (20:19)
== END 2018-08-03 20:36 | disposition home or self-care (01) ==
LOC: ER 18:39
DX: K02.9 Dental caries, unspecified (principal); K08.89 Other specified disorders of teeth and supporting structures; F17.210 Nicotine dependence, cigarettes, uncomplicated; J45.909 Unspecified asthma, uncomplicated; Z88.8 Allergy status to other drugs, medicaments and biological substances
CPT/HCPCS: 99282; 96372; J1885; S0119

== ENCOUNTER 2018-08-18 08:21 | Emergency (ER) | payer SELFPAY ==
[2018-08-18] MEDS ORDERED: NORMAL SALINE 1000 ML 1,000 ML IV ONE (09:20)
[2018-08-18] MEDS ORDERED: KETOROLAC TROMETHAMINE INJ/PF 30 MG/1 ML SDV IV ONE (09:20)
--- NOTE | 2018-08-18 09:23 | ER Document Report ---
Addendum entered and electronically signed by KEVIN SOLORZANO PA-C 08/18/18 11:17: Discharge - Discharge Clinical Impression: Pyelonephritis Condition: Good Disposition: HOME, SELF-CARE Instructions: Pyelonephritis ([facility]), Rocephin ([facility]) Additional Instructions: You have been diagnosed with a condition called pyelonephritis which is an infection involving your kidneys and bladder. You have been given a dose of antibiotics here in the emergency department to help begin to treat this infection. Your also being sent home on antibiotics. Please start taking these later on today when you fill the prescription. Complete the course even if you feel better. Please return if you have persistent vomiting, pass out, have worsening pain, become unable to tolerate fluids, or have any other symptoms that are concerning to you. Please follow-up with your primary care physician in the next 24-48 hours. Prescriptions: Cephalexin Monohydrate [Keflex 500 mg Capsule] 500 mg PO Q12H 7 Days #14 capsule Forms: Return to Work Original Note: ED General - General Chief Complaint: Pain With Urination Stated Complaint: BACK PAIN Time Seen by Provider: 08/18/18 09:06 Notes: Well-appearing 23-year-old female presents to the emergency department with chief complaint of severe left lower back pain, nausea, dry heaves, difficulty with urination since yesterday. Patient states that she woke up and had the left flank pain was having urgency but would only build to urinate a couple drops at the time. Patient states that she has been seen any blood in her urine. Patient denies any fevers or chills, neck stiffness, shortness of breath or chest pain, complains of nausea and dry heaves, loss of appetite, denies abdominal pain, denies urinary frequency or dysuria. No other complaints TRAVEL OUTSIDE OF THE [place] IN LAST 30 DAYS: No - Related Data Allergies/Adverse Reactions: Penicillins Allergy (Severe, Verified 08/18/18 08:23) cinnamon Allergy (Verified 08/18/18 08:23) Sulfa (Sulfonamide Antibiotics) Allergy (Verified 08/18/18 08:23) ketorolac Adverse Reaction (Mild, Verified 08/18/18 08:23) itching Past Medical History - Social History Smoking Status: Unknown if Ever Smoked Family History: Arthritis, CAD, CVA, DM, Hyperlipidemia, Hypertension Patient has suicidal ideation: No Patient has homicidal ideation: No Pulmonary Medical History: Reports: Hx Asthma, Hx Bronchitis Renal/ Medical History: Denies: Hx Peritoneal Dialysis Psychiatric Medical History: Reports: Hx Depression - anxiety/PTSD, Hx Post Traumatic Stress Disorder Past Surgical History: Reports: Hx Oral Surgery - [facility]oms - Immunizations Immunizations up to date: Yes Hx Diphtheria, Pertussis, Tetanus Vaccination: Yes Review of Systems - Review of Systems Constitutional: See HPI EENT: No symptoms reported Cardiovascular: See HPI Respiratory: See HPI Gastrointestinal: See HPI Genitourinary: See HPI Female Genitourinary: See HPI Musculoskeletal: No symptoms reported Skin: No symptoms reported Hematologic/Lymphatic: No symptoms reported Neurological/Psychological: No symptoms reported Physical Exam - Vital signs Vitals: Temp Pulse Resp BP Pulse Ox 98.1 F 86 20 118/70 95 08/18/18 08:36 08/18/18 08:36 08/18/18 08:36 08/18/18 08:36 08/18/18 08:36 - Notes Notes: PHYSICAL EXAMINATION: Reviewed vital signs and charting by RN GENERAL: Alert, interacts well. No acute distress. HEAD: Normocephalic, atraumatic. EYES: Pupils equal and round. Extraocular movements intact. ENT: Oral mucosa moist, tongue midline. NECK: Full range of motion. Trachea midline. LUNGS: Clear to auscultation bilaterally, no wheezes, rales, or rhonchi. No respiratory distress. HEART: Regular rate and rhythm. No murmur ABDOMEN: soft, non-tender. No distention. Bowel sounds present BACK: Left CVAT to light palpation EXTREMITIES: Moves all 4 extremities spontaneously. No edema, No cyanosis. PSYCH: Normal affect, normal mood. SKIN: Warm, dry, normal turgor. No rashes or lesions noted. Course - Re-evaluation Re-evalutation: 08/18/18 09:23 Overall well-appearing and vital signs within normal limits, left CVAT and so plan is to obtain basic labs, pain control, and if urine shows any evidence of potential stone will progress with imaging. 08/18/18 11:14 Urinalysis showed significant UTI consistent with pyelonephritis that correlates with clinical symptoms and clinical findings. CT abdomen pelvis done which did not show any evidence of or concern for an obstructed infected stone. Patient will receive Rocephin 1 g IM here in the emergency department and will be placed on Keflex 500 mg twice daily for 7 days. At this time her vital signs are within normal limits and she is stable for discharge. - Vital Signs Vital signs: Temp Pulse Resp BP Pulse Ox 98.1 F 86 20 118/70 95 08/18/18 08:36 08/18/18 08:36 08/18/18 08:36 08/18/18 08:36 08/18/18 08:36 - Laboratory Result Diagrams: 08/18/18 09:37 08/18/18 09:37 Laboratory results interpreted by me: 08/18/18 08/18/18 08/18/18 09:37 09:37 09:50 WBC 14.6 H Seg Neutrophils % 81.2 H Lymphocytes % 11.3 L Absolute Neutrophils 11.9 H Chloride 111 H AST 12 L Urine Protein 30 H Urine Blood MODERATE H Ur Leukocyte Esterase LARGE H Discharge - Discharge Clinical Impression: Pyelonephritis Condition: Good Disposition: HOME, SELF-CARE Instructions: Pyelonephritis ([facility]), Rocephin ([facility]) Additional Instructions: You have been diagnosed with a condition called pyelonephritis which is an infection involving your kidneys and bladder. You have been given a dose of antibiotics here in the emergency department to help begin to treat this infection. Your also being sent home on antibiotics. Please start taking these later on today when you fill the prescription. Complete the course even if you feel better. Please return if you have persistent vomiting, pass out, have worsening pain, become unable to tolerate fluids, or have any other symptoms that are concerning to you. Please follow-up with your primary care physician in the next 24-48 hours. Prescriptions: Cephalexin Monohydrate [Keflex 500 mg Capsule] 500 mg PO Q12H 7 Days #14 capsule
[2018-08-18 09:58] LABS: ABSOLUTE BASOPHILS # (AUTO) 0.1 10^3/uL (0.0-0.2); ABSOLUTE EOSINOPHILS # (AUTO) 0.2 10^3/uL (0.0-0.6); ABSOLUTE LYMPHOCYTES (AUTO) 1.7 10^3/uL (0.5-4.7); ABSOLUTE MONOCYTES (AUTO) 0.9 10^3/uL (0.1-1.4); ABSOLUTE NEUT (AUTO) 11.9 10^3/uL (1.7-8.2); BASOPHILS % (AUTO) 0.5 % (0-2); EOSINOPHILS % (AUTO) 1.1 % (0-6); HEMATOCRIT 36.9 % (36.0-47.0); HEMOGLOBIN 12.6 g/dL (12.0-15.5); LYMPHOCYTES % (AUTO) 11.3 % (13-45); MEAN CORPUSCULAR HEMOGLOBIN 30.2 pg (27.0-33.4); MEAN CORPUSCULAR HGB CONC 34.2 g/dL (32.0-36.0); MEAN CORPUSCULAR VOLUME 88 fl (80-97); MONOCYTES % (AUTO) 5.9 % (3-13); PLATELET COUNT 323 10^3/uL (150-450); RED BLOOD COUNT 4.19 10^6/uL (3.72-5.28); RED CELL DISTRIBUTION WIDTH 13.6 % (11.5-14.0); SEGMENTED NEUTROPHILS % (AUTO) 81.2 % (42-78); TOTAL CELLS COUNTED % (AUTO) 100 %; WHITE BLOOD COUNT 14.6 10^3/uL (4.0-10.5)
[2018-08-18 10:12] LABS: APPEARANCE,URINE CLOUDY; BILIRUBIN,URINE NEGATIVE (NEGATIVE); COLOR,URINE YELLOW; GLUCOSE, URINE NEGATIVE (NEGATIVE); KETONES,URINE NEGATIVE (NEGATIVE); LEUKOCYTE ESTERASE,URINE LARGE (NEGATIVE); NITRITE,URINE NEGATIVE (NEGATIVE); PROTEIN,URINE 30 mg/dL (NEGATIVE); URINE SPECIFIC GRAVITY 1.012; UROBILINOGEN,URINE NEGATIVE mg/dL (<2.0)
[2018-08-18 10:15] LABS: ALANINE AMINOTRANSFERASE 19 U/L (9-52); ALBUMIN 4.1 g/dL (3.5-5.0); ALKALINE PHOSPHATASE 56 U/L (38-126); ANION GAP 5 (5-19); ASPARTATE AMINO TRANSFERASE 12 U/L (14-36); BILIRUBIN,DIRECT 0.1 mg/dL (0.0-0.4); BILIRUBIN,TOTAL 0.7 mg/dL (0.2-1.3); BLOOD UREA NITROGEN 10 mg/dL (7-20); CALCIUM 9.5 mg/dL (8.4-10.2); CARBON DIOXIDE 25 mmol/L (22-30); CHLORIDE 111 mmol/L (98-107); GLUCOSE 100 mg/dL (75-110); POTASSIUM 4.2 mmol/L (3.6-5.0); SODIUM 141.4 mmol/L (137-145); TOTAL PROTEIN 6.7 g/dL (6.3-8.2)
[2018-08-18] MEDS ORDERED: MORPHINE SULFATE 10 MG/ML INJ IV ONE (10:29)
--- NOTE | 2018-08-18 10:55 | RADIOLOGY REPORT (SQ) ---
EXAM DESCRIPTION: CT ABD/PELVIS NO ORAL OR IV COMPLETED DATE/TIME: 08/18/2018 10:37 am REASON FOR STUDY: left flank pain COMPARISON: 04/22/2018 TECHNIQUE: CT scan of the abdomen and pelvis performed without intravenous or oral contrast. Images reviewed with lung, soft tissue, and bone windows. Reconstructed coronal and sagittal MPR images revi ewed. All images stored on PACS. All CT scanners at this facility use dose modulation, iterative reconstruction, and/or weight based d osing when appropriate to reduce radiation dose to as low as reasonably achievable (ALARA). [facility]: Dose Right [facility]: CareDose [facility]: Dose Right [facility]: Teradose 4D [facility]: Smart [employer] RADIATION DOSE: CT Rad equipment meets quality standard of care and radiation dose reduction techniq ues were employed. CTDIvol: 6.5 mGy. DLP: 348 mGy-cm.mGy. LIMITATIONS: None. FINDINGS: LOWER CHEST: No significant findings. No nodules or infiltrates. NON-CONTRASTED LIVER, SPLEEN, ADRENALS: Evaluation limited by lack of IV contrast. No identified sign ificant masses. PANCREAS: No masses. No peripancreatic inflammatory changes. GALLBLADDER: No identified stones by CT criteria. No inflammatory changes to suggest cholecystitis. RIGHT KIDNEY AND URETER: No suspicious masses. Assessment limited by lack of IV contrast. No signif icant calcifications. No hydronephrosis or hydroureter. LEFT KIDNEY AND URETER: No suspicious masses. Assessment limited by lack of IV contrast. No signifi cant calcifications. No hydronephrosis or hydroureter. AORTA AND RETROPERITONEUM: No aneurysm. No retroperitoneal masses or adenopathy. BOWEL AND PERITONEAL CAVITY: No obvious masses or inflammatory changes. No free fluid. Moderate anshu en of stool in the left and right colon. APPENDIX: Normal. PELVIS, BLADDER, AND ABDOMINAL WALL:No abnormal masses. No free fluid. Bladder normal. BONES: No significant findings. OTHER: No other significant finding. IMPRESSION: No noncontrast CT findings explain left flank pain. No evidence of urinary tract calcul us or hydronephrosis. Moderate burden of stool in the colon. COMMENT: Quality ID # [id number]: Final reports with documentation of one or more dose reduction techniques (e.g., Automated exposure control, adjustment of the mA and/or kV according to patient size, use of iterative reconstruction technique) TECHNICAL DOCUMENTATION: JOB ID: [id number] [email or web address]- All Rights Reserved Reading location - IP/workstation name: [email or web address]
[2018-08-18] MEDS ORDERED: CEFTRIAXONE INJ 1000 MG VIAL IM ONE (11:08)
[2018-08-18] MEDS ORDERED: HYDROCODONE/ACETAMINOPHEN 5-325 MG (6 TAB/ER DISP) PO PRN (11:16)
[2018-08-18 11:37] VITALS: BP 122/70
== END 2018-08-18 11:37 | disposition home or self-care (01) ==
LOC: ER 08:21
DX: N12 Tubulo-interstitial nephritis, not specified as acute or chronic (principal); R30.9 Painful micturition, unspecified; M54.5 Low back pain; R11.0 Nausea; R63.0 Anorexia; J45.909 Unspecified asthma, uncomplicated
CPT/HCPCS: 99284; 96372; 96361; 96374; 96375; 36415; 85025; 81025; 80053; 81001; 74176; J1885; J2270; J0696; J7030

== ENCOUNTER 2018-08-25 23:43 | Emergency (ER) | payer SELFPAY | END 2018-08-26 04:25 | disposition left against medical advice (07) | LOC: ER 23:43 | DX: Z53.21 Procedure and treatment not carried out due to patient leaving prior to being seen by health care provider (principal) ==

== ENCOUNTER 2018-12-26 18:55 | Emergency (ER) | payer SELFPAY ==
[2018-12-26] MEDS ORDERED: ONDANSETRON 4 MG TAB.RAPDIS PO ONE (19:07)
[2018-12-26] MEDS ORDERED: ACETAMINOPHEN 325 MG TABLET PO ONE (19:07)
--- NOTE | 2018-12-26 19:07 | ER Document Report ---
ED Medical Screen (RME) - General Chief Complaint: Low Back Pain Stated Complaint: BACK PAIN Time Seen by Provider: 12/26/18 19:04 Mode of Arrival: Ambulatory Information source: Patient Notes: 23-year-old female presented to ED for low back pain that started at 9 AM this morning while she was at work. She states it goes up and down on the left side. She does not want to walk on it put weight on it or sit on that side due to the pain. She states she had a similar pain to this before and she had a kidney infection. She states that was in August of this year. She states the pain is worse this time. She states her last menstrual cycle was October 22 and that she started bleeding today with this pain. She states she had multiple home tests that were negative and the one at the [facility] was negative and if she did not get it. By Wednesday they will go to come to the hospital get a blood test. She started bleeding this morning. I have greeted and performed a rapid initial assessment of this patient. A comprehensive ED assessment and evaluation of the patient, analysis of test results and completion of medical decision making process will be conducted by an additional ED providers. TRAVEL OUTSIDE OF THE [place] IN LAST 30 DAYS: No - Related Data Allergies/Adverse Reactions: Penicillins Allergy (Severe, Verified 08/18/18 08:23) cinnamon Allergy (Verified 08/18/18 08:23) Sulfa (Sulfonamide Antibiotics) Allergy (Verified 08/18/18 08:23) ketorolac Adverse Reaction (Mild, Verified 08/18/18 08:23) itching Past Medical History Pulmonary Medical History: Reports: Hx Asthma, Hx Bronchitis Renal/ Medical History: Denies: Hx Peritoneal Dialysis Psychiatric Medical History: Reports: Hx Depression - anxiety/PTSD, Hx Post Traumatic Stress Disorder Past Surgical History: Reports: Hx Oral Surgery - wisdoms - Immunizations Immunizations up to date: Yes Hx Diphtheria, Pertussis, Tetanus Vaccination: Yes Physical Exam - Vital signs Vitals: Temp Pulse Resp BP Pulse Ox 98.1 F 85 16 131/77 H 100 12/26/18 19:00 12/26/18 19:00 12/26/18 19:00 12/26/18 19:00 12/26/18 19:00 Course - Vital Signs Vital signs: Temp Pulse Resp BP Pulse Ox 98.1 F 85 16 131/77 H 100 12/26/18 19:00 12/26/18 19:00 12/26/18 19:00 12/26/18 19:00 12/26/18 19:00
[2018-12-26 19:52] LABS: ABSOLUTE EOSINOPHILS # (AUTO) 0.2 10^3/uL (0.0-0.6); ABSOLUTE LYMPHOCYTES (AUTO) 3.3 10^3/uL (0.5-4.7); ABSOLUTE MONOCYTES (AUTO) 0.5 10^3/uL (0.1-1.4); BASOPHILS % (AUTO) 0.6 % (0-2); EOSINOPHILS % (AUTO) 2.4 % (0-6); HEMATOCRIT 37.4 % (36.0-47.0); HEMOGLOBIN 12.7 g/dL (12.0-15.5); LYMPHOCYTES % (AUTO) 40.6 % (13-45); MEAN CORPUSCULAR HEMOGLOBIN 30.7 pg (27.0-33.4); MEAN CORPUSCULAR HGB CONC 33.9 g/dL (32.0-36.0); MEAN CORPUSCULAR VOLUME 91 fl (80-97); MONOCYTES % (AUTO) 6.7 % (3-13); PLATELET COUNT 416 10^3/uL (150-450); RED BLOOD COUNT 4.13 10^6/uL (3.72-5.28); RED CELL DISTRIBUTION WIDTH 14.8 % (11.5-14.0); SEGMENTED NEUTROPHILS % (AUTO) 49.7 % (42-78); TOTAL CELLS COUNTED % (AUTO) 100 %; WHITE BLOOD COUNT 8.1 10^3/uL (4.0-10.5)
[2018-12-26 19:59] LABS: APPEARANCE,URINE CLEAR; BILIRUBIN,URINE NEGATIVE (NEGATIVE); COLOR,URINE YELLOW; GLUCOSE, URINE NEGATIVE (NEGATIVE); KETONES,URINE NEGATIVE (NEGATIVE); PROTEIN,URINE NEGATIVE (NEGATIVE); URINE SPECIFIC GRAVITY 1.009; UROBILINOGEN,URINE NEGATIVE mg/dL (<2.0)
[2018-12-26 20:07] LABS: ALBUMIN 4.6 g/dL (3.5-5.0); ALKALINE PHOSPHATASE 45 U/L (38-126); ANION GAP 9 (5-19); ASPARTATE AMINO TRANSFERASE 20 U/L (14-36); BILIRUBIN,DIRECT 0.1 mg/dL (0.0-0.4); BILIRUBIN,TOTAL 0.2 mg/dL (0.2-1.3); BLOOD UREA NITROGEN 6 mg/dL (7-20); CALCIUM 9.6 mg/dL (8.4-10.2); CARBON DIOXIDE 25 mmol/L (22-30); CHLORIDE 109 mmol/L (98-107); GLUCOSE 85 mg/dL (75-110); POTASSIUM 4.5 mmol/L (3.6-5.0); TOTAL PROTEIN 7.8 g/dL (6.3-8.2)
[2018-12-26] MEDS ORDERED: FENTANYL CITRATE INJ/PF 100 MCG/2 ML AMPUL IV ONE (20:29)
--- NOTE | 2018-12-26 22:57 | RADIOLOGY REPORT (SQ) ---
EXAM DESCRIPTION: US PELVIS TRANSVAGINAL COMPLETED DATE/TME: 12/26/2018 20:30 CLINICAL HISTORY: 23 years, Female, left pelvic pain Findings: Uterus is anteverted and measures 7.3 x 4.1 x 3.0 cm. Endometrium measures 2 mm in thickness. Cervix is closed measuring 2.6 cm. Right ovary measures 1.8 x 1.5 x 1.5 cm. Vascular flow is preserved in the right ovary on color and spectral Doppler imaging. Left ovary is not visualized. No abnormal adnexal masses. IMPRESSION: No suspicious findings.
--- NOTE | 2018-12-26 23:14 | ER Document Report ---
ED GI/ - General Chief Complaint: Flank Pain Stated Complaint: BACK PAIN Time Seen by Provider: 12/26/18 19:04 Mode of Arrival: Ambulatory Notes: Patient is a 23-year-old female presents to the emergency department for intermittent left flank and left pelvic pain for the last 2 weeks. Patient's denying any dysuria. She is denying any vaginal discharge except for her menstrual cycle which she says started this morning. Patient also complaining of generalized nausea and vomiting. States she did vomit x2 denying any blood. Patient's denying any diarrhea she is denying any fevers. Patient does have a history of ovarian cyst. She denies any history of kidney stones. TRAVEL OUTSIDE OF THE [place] IN LAST 30 DAYS: No - Related Data Allergies/Adverse Reactions: Penicillins Allergy (Severe, Verified 08/18/18 08:23) cinnamon Allergy (Verified 08/18/18 08:23) Sulfa (Sulfonamide Antibiotics) Allergy (Verified 08/18/18 08:23) ketorolac Adverse Reaction (Mild, Verified 08/18/18 08:23) itching Past Medical History - General Information source: Patient - Social History Smoking Status: Current Every Day Smoker Frequency of alcohol use: Rare Family History: Arthritis, CAD, CVA, DM, Hyperlipidemia, Hypertension Patient has suicidal ideation: No Patient has homicidal ideation: No Pulmonary Medical History: Reports: Hx Asthma, Hx Bronchitis Renal/ Medical History: Denies: Hx Peritoneal Dialysis Psychiatric Medical History: Reports: Hx Depression - anxiety/PTSD, Hx Post Traumatic Stress Disorder Past Surgical History: Reports: Hx Oral Surgery - wisdoms - Immunizations Immunizations up to date: Yes Hx Diphtheria, Pertussis, Tetanus Vaccination: Yes Review of Systems - Review of Systems Constitutional: denies: Fever EENT: No symptoms reported Cardiovascular: No symptoms reported Respiratory: No symptoms reported Gastrointestinal: See HPI Genitourinary: See HPI Female Genitourinary: See HPI Musculoskeletal: See HPI Skin: No symptoms reported Hematologic/Lymphatic: No symptoms reported Neurological/Psychological: No symptoms reported Physical Exam - Vital signs Vitals: Temp Pulse Resp BP Pulse Ox 98.1 F 85 16 131/77 H 100 12/26/18 19:00 12/26/18 19:00 12/26/18 19:00 12/26/18 19:00 12/26/18 19:00 - Notes Notes: GENERAL: Alert, interacts well. No acute distress. HEAD: Normocephalic, atraumatic. EYES: Pupils equal, round, and reactive to light. Extraocular movements intact. ENT: Oral mucosa moist, tongue midline. NECK: Full range of motion. Supple. Trachea midline. LUNGS: Clear to auscultation bilaterally, no wheezes, rales, or rhonchi. No respiratory distress. HEART: Regular rate and rhythm. No murmur ABDOMEN: Soft, generalized left pelvic pain noted, otherwise abdominal exam benign. Non-distended. Bowel sounds present in all 4 quadrants. EXTREMITIES: Moves all 4 extremities spontaneously. No edema, normal radial and dorsalis pedis pulses bilaterally. No cyanosis. BACK: no cervical, thoracic, lumbar midline tenderness. No saddle anesthesia, normal distal neurovascular exam. No CVA tenderness noted bilaterally. NEUROLOGICAL: Alert and oriented x3. Normal speech. cranial nerves II through XII grossly intact. PSYCH: Normal affect, normal mood. SKIN: Warm, dry, normal turgor. No rashes or lesions noted. Course - Re-evaluation Re-evalutation: 12/26/18 23:10 Laboratory 12/26/18 12/26/18 12/26/18 19:37 19:37 19:37 WBC 8.1 RBC 4.13 Hgb 12.7 Hct 37.4 MCV 91 MCH 30.7 MCHC 33.9 RDW 14.8 H Plt Count 416 Lymph % (Auto) 40.6 [place] % (Auto) 6.7 Eos % (Auto) 2.4 Baso % (Auto) 0.6 Absolute Neuts (auto) 4.0 Absolute Lymphs (auto) 3.3 Absolute Monos (auto) 0.5 Absolute Eos (auto) 0.2 Absolute Basos (auto) 0.0 Seg Neutrophils % 49.7 Sodium 143.1 Potassium 4.5 Chloride 109 H Carbon Dioxide 25 Anion Gap 9 BUN 6 L Creatinine 0.56 Est GFR ( Amer) > 60 Est GFR (MDRD) Non-Af > 60 Glucose 85 Calcium 9.6 Total Bilirubin 0.2 Direct Bilirubin 0.1 Neonat Total Bilirubin Not Reportable Neonat Direct Bilirubin Not Reportable Neonat Indirect Bili Not Reportable AST 20 ALT 18 Alkaline Phosphatase 45 Total Protein 7.8 Albumin 4.6 Serum HCG, Qual NEGATIVE Urine Color Urine Appearance Urine pH Ur Specific [place] Urine Protein Urine Glucose (UA) Urine Ketones Urine Blood Urine Nitrite (Reflex) Urine Bilirubin Urine Urobilinogen Leukocyte Esterase Rfl Urine RBC (Auto) Urine WBC (Reflex) Squamous Epi Cells Auto Urine Mucus (Auto) Urine Ascorbic Acid 12/26/18 19:37 WBC RBC Hgb Hct MCV MCH MCHC RDW Plt Count Lymph % (Auto) [place]mort[place] % (Auto) Eos % (Auto) Baso % (Auto) Absolute Neuts (auto) Absolute Lymphs (auto) Absolute Monos (auto) Absolute Eos (auto) Absolute Basos (auto) Seg Neutrophils % Sodium Potassium Chloride Carbon Dioxide Anion Gap BUN Creatinine Est GFR ( Amer) Est GFR (MDRD) Non-Af Glucose Calcium Total Bilirubin Direct Bilirubin Neonat Total Bilirubin Neonat Direct Bilirubin Neonat Indirect Bili AST ALT Alkaline Phosphatase Total Protein Albumin Serum HCG, Qual Urine Color YELLOW Urine Appearance CLEAR Urine pH 6.0 Ur Specific [place] 1.009 Urine Protein NEGATIVE Urine Glucose (UA) NEGATIVE Urine Ketones NEGATIVE Urine Blood LARGE H Urine Nitrite (Reflex) NEGATIVE Urine Bilirubin NEGATIVE Urine Urobilinogen NEGATIVE Leukocyte Esterase Rfl SMALL H Urine RBC (Auto) 158 Urine WBC (Reflex) 5 Squamous Epi Cells Auto 1 Urine Mucus (Auto) RARE Urine Ascorbic Acid NEGATIVE Transvaginal US 12/26/18 20:30 IMPRESSION: No suspicious findings. Patient's labs show no signs of leukocytosis, no signs of anemia, no signs of electrolyte abnormalities, no signs of kidney function abnormalities. Patient's urine does show signs of hematuria with no signs of urinary tract infection. Hematuria is likely due to patient's menstrual cycle starting this morning. Patient's denying any history of kidney stones. She does not have any CVA tenderness upon my examination. Patient's only complaint is left pelvic pain. Transvaginal ultrasound is unremarkable. I discussed with patient doing a pelvic exam at bedside. Patient wishes to refuse pelvic. States she does not have any vaginal discharge and is not concerned for any sexually transmitted diseases. Patient voices she does feel better after pain medication in the emergency department. Discussed with patient likely diagnosis of the start of her menses and menstrual cramps. Discussed close follow-up with primary care provider and SOCIAL SERVICE DIRECTOR. Patient stable for discharge. - Vital Signs Vital signs: Temp Pulse Resp BP Pulse Ox 98.1 F 85 16 131/77 H 100 12/26/18 19:00 12/26/18 19:00 12/26/18 19:00 12/26/18 19:00 12/26/18 19:00 - Laboratory Result Diagrams: 12/26/18 19:37 12/26/18 19:37 Laboratory results interpreted by me: 12/26/18 12/26/18 12/26/18 19:37 19:37 19:37 RDW 14.8 H Chloride 109 H BUN 6 L Urine Blood LARGE H Leukocyte Esterase Rfl SMALL H Discharge - Discharge Clinical Impression: Pelvic pain Condition: Stable Disposition: HOME, SELF-CARE Instructions: Pelvic Pain ([facility]) Additional Instructions: As we discussed you have been seen and treated in the emergency department for your left pelvic pain. Your ultrasound reveals no signs of abnormalities. Your pain is likely due to the start of your menses. Please follow-up with your [facility] care provider in the next 12 to 24 hours. Please also follow-up with SOCIAL SERVICE DIRECTOR, phone numbers will be provided in this packet. Please return to the emergency room for any concerns. Forms: Return to Work Referrals: YUAN MILLER MD [ACTIVE STAFF] - Follow up as needed
[2018-12-26 23:57] VITALS: BP 134/79
== END 2018-12-26 23:55 | disposition home or self-care (01) ==
LOC: ER 18:55
DX: R10.2 Pelvic and perineal pain (principal); R10.9 Unspecified abdominal pain; R11.2 Nausea with vomiting, unspecified; J45.909 Unspecified asthma, uncomplicated; F17.200 Nicotine dependence, unspecified, uncomplicated; Z87.42 Personal history of other diseases of the female genital tract; Z88.0 Allergy status to penicillin; Z91.018 Allergy to other foods; Z88.2 Allergy status to sulfonamides
CPT/HCPCS: 36415; 87086; 84703; 85025; 80053; 81001; 76830; 93976; S0119; J3010; 96374; 99284

== ENCOUNTER 2019-01-05 15:54 | Emergency (ER) | payer SELFPAY ==
--- NOTE | 2019-01-05 16:09 | ER Document Report ---
ED Medical Screen (RME) - General Chief Complaint: Flank Pain Stated Complaint: LEFT SIDE AND ABDOMINAL PAIN Time Seen by Provider: 01/05/19 16:05 Mode of Arrival: Ambulatory Information source: Patient Notes: 23-year-old female presented to ED for complaint of left flank pain for last several weeks. She states she stopped vaginal bleeding about 4 days ago. The last time she was seen she did have blood in the urine but we will recheck that again. She states she is nauseated but not vomiting. Patient states she has had a history of kidney infections but not kidney stones but her mother and father both had kidney stones. Patient is alert oriented respirations regular unlabored speaking in full sentences. I have greeted and performed a rapid initial assessment of this patient. A comprehensive ED assessment and evaluation of the patient, analysis of test results and completion of medical decision making process will be conducted by an additional ED providers. TRAVEL OUTSIDE OF THE [place] IN LAST 30 DAYS: No - Related Data Allergies/Adverse Reactions: Penicillins Allergy (Severe, Verified 01/05/19 16:00) cinnamon Allergy (Verified 01/05/19 16:00) Sulfa (Sulfonamide Antibiotics) Allergy (Verified 01/05/19 16:00) ketorolac Adverse Reaction (Mild, Verified 01/05/19 16:00) itching Past Medical History Pulmonary Medical History: Reports: Hx Asthma, Hx Bronchitis Renal/ Medical History: Denies: Hx Peritoneal Dialysis Psychiatric Medical History: Reports: Hx Depression - anxiety/PTSD, Hx Post Traumatic Stress Disorder Past Surgical History: Reports: Hx Oral Surgery - wisdoms - Immunizations Immunizations up to date: Yes Hx Diphtheria, Pertussis, Tetanus Vaccination: Yes Physical Exam - Vital signs Vitals: Temp Pulse Resp BP Pulse Ox 98.2 F 92 18 161/88 H 100 01/05/19 15:56 01/05/19 15:56 01/05/19 15:56 01/05/19 15:56 01/05/19 15:56 Course - Vital Signs Vital signs: Temp Pulse Resp BP Pulse Ox 98.2 F 92 18 161/88 H 100 01/05/19 15:56 01/05/19 15:56 01/05/19 15:56 01/05/19 15:56 01/05/19 15:56
[2019-01-05 17:15] LABS: ABSOLUTE BASOPHILS # (AUTO) 0.1 10^3/uL (0.0-0.2); ABSOLUTE EOSINOPHILS # (AUTO) 0.4 10^3/uL (0.0-0.6); ABSOLUTE LYMPHOCYTES (AUTO) 2.4 10^3/uL (0.5-4.7); ABSOLUTE MONOCYTES (AUTO) 0.3 10^3/uL (0.1-1.4); ABSOLUTE NEUT (AUTO) 3.6 10^3/uL (1.7-8.2); BASOPHILS % (AUTO) 0.9 % (0-2); EOSINOPHILS % (AUTO) 5.4 % (0-6); HEMATOCRIT 35.7 % (36.0-47.0); HEMOGLOBIN 12.4 g/dL (12.0-15.5); LYMPHOCYTES % (AUTO) 35.4 % (13-45); MEAN CORPUSCULAR HEMOGLOBIN 31.1 pg (27.0-33.4); MEAN CORPUSCULAR HGB CONC 34.7 g/dL (32.0-36.0); MEAN CORPUSCULAR VOLUME 90 fl (80-97); MONOCYTES % (AUTO) 4.5 % (3-13); PLATELET COUNT 280 10^3/uL (150-450); RED BLOOD COUNT 3.98 10^6/uL (3.72-5.28); RED CELL DISTRIBUTION WIDTH 13.9 % (11.5-14.0); SEGMENTED NEUTROPHILS % (AUTO) 53.8 % (42-78); TOTAL CELLS COUNTED % (AUTO) 100 %; WHITE BLOOD COUNT 6.7 10^3/uL (4.0-10.5)
[2019-01-05 17:37] LABS: APPEARANCE,URINE SLIGHTLY-CLOUDY; BILIRUBIN,URINE NEGATIVE (NEGATIVE); COLOR,URINE YELLOW; GLUCOSE, URINE NEGATIVE (NEGATIVE); KETONES,URINE NEGATIVE (NEGATIVE); PROTEIN,URINE NEGATIVE (NEGATIVE); URINE SPECIFIC GRAVITY 1.026; UROBILINOGEN,URINE NEGATIVE mg/dL (<2.0)
[2019-01-05 17:41] LABS: ALBUMIN 3.8 g/dL (3.5-5.0); ALKALINE PHOSPHATASE 42 U/L (38-126); ANION GAP 7 (5-19); ASPARTATE AMINO TRANSFERASE 19 U/L (14-36); BILIRUBIN,DIRECT 0.1 mg/dL (0.0-0.4); BILIRUBIN,TOTAL 0.2 mg/dL (0.2-1.3); BLOOD UREA NITROGEN 7 mg/dL (7-20); CALCIUM 8.9 mg/dL (8.4-10.2); CARBON DIOXIDE 25 mmol/L (22-30); CHLORIDE 108 mmol/L (98-107); GLUCOSE 84 mg/dL (75-110); POTASSIUM 3.8 mmol/L (3.6-5.0); TOTAL PROTEIN 6.7 g/dL (6.3-8.2)
--- NOTE | 2019-01-05 19:14 | RADIOLOGY REPORT (SQ) ---
EXAM DESCRIPTION: CT ABD/PELVIS NO ORAL OR IV COMPLETED DATE/TIME: 01/05/2019 6:57 pm REASON FOR STUDY: left flank pain x 3 weeks COMPARISON: 08/18/2018 TECHNIQUE: CT scan of the abdomen and pelvis performed without intravenous or oral contrast. Images reviewed with lung, soft tissue, and bone windows. Reconstructed coronal and sagittal MPR images revi ewed. All images stored on PACS. All CT scanners at this facility use dose modulation, iterative reconstruction, and/or weight based d osing when appropriate to reduce radiation dose to as low as reasonably achievable (ALARA). [facility]: Dose Right [facility]: CareDose [facility]: Dose Right [facility]: Teradose 4D [facility]: Smart ProMed RADIATION DOSE: CT Rad equipment meets quality standard of care and radiation dose reduction techniq ues were employed. CTDIvol: 6.2 mGy. DLP: 355 mGy-cm.mGy. LIMITATIONS: None. FINDINGS: LOWER CHEST: No significant findings. No nodules or infiltrates. NON-CONTRASTED LIVER, SPLEEN, ADRENALS: Evaluation limited by lack of IV contrast. No identified sign ificant masses. PANCREAS: No masses. No peripancreatic inflammatory changes. GALLBLADDER: No identified stones by CT criteria. No inflammatory changes to suggest cholecystitis. RIGHT KIDNEY AND URETER: No suspicious masses. Assessment limited by lack of IV contrast. No signif icant calcifications. No hydronephrosis or hydroureter. LEFT KIDNEY AND URETER: No suspicious masses. Assessment limited by lack of IV contrast. No signifi cant calcifications. No hydronephrosis or hydroureter. AORTA AND RETROPERITONEUM: No aneurysm. No retroperitoneal masses or adenopathy. BOWEL AND PERITONEAL CAVITY: No obvious masses or inflammatory changes. No free fluid. APPENDIX: Normal. PELVIS, BLADDER, AND ABDOMINAL WALL:No abnormal masses. No free fluid. Bladder normal. BONES: No significant findings. OTHER: No other significant finding. IMPRESSION: NO SIGNIFICANT OR ACUTE PROCESS IN THE ABDOMEN OR PELVIS. COMMENT: Quality ID # [id number]: Final reports with documentation of one or more dose reduction techniques (e.g., Automated exposure control, adjustment of the mA and/or kV according to patient size, use of iterative reconstruction technique) TECHNICAL DOCUMENTATION: JOB ID: [id number] [employer]- All Rights Reserved Reading location - IP/workstation name: [email or web address]
[2019-01-05] MEDS ORDERED: ONDANSETRON HCL INJ/PF 4 MG/2 ML SDV IV ONE (20:23)
[2019-01-05] MEDS ORDERED: FENTANYL CITRATE INJ/PF 100 MCG/2 ML AMPUL IV ONE ×2 (20:23→22:07)
--- NOTE | 2019-01-05 21:53 | RADIOLOGY REPORT (SQ) ---
EXAM DESCRIPTION: CLINICAL HISTORY: 23 years Female LLQ pain. COMPARISON: Noncontrast CT of the abdomen and pelvis from today. CT with IV contrast 04/22/2018. TECHNIQUE: Axial images with IV contrast. 82 mL Omnipaque 350. Sagittal coronal reconstruction. This exam was performed according to our departmental dose-optimization program, which includes automated exposure control, adjustment of the mA and/or kV according to patient size and/or use of iterative reconstruction technique.. FINDINGS: Lung bases, liver, pancreas, biliary system, adrenal glands aorta and para-aortic regions are unremarkable. Mild splenomegaly. Minimally increased since 04/22/2018. No suspicious bowel or peritoneal abnormalities. CT of the pelvis demonstrates anteflexed uterus. Urinary bladder unremarkable. No suspicious bowel abnormalities. Normal adnexa for age. IMPRESSION: 1. Mild splenomegaly mildly increased since 04/22/2018. 2. The study is otherwise unremarkable.
[2019-01-05] MEDS ORDERED: DOXYCYCLINE HYCLATE 100 MG TABLET PO ONE (22:07)
[2019-01-05] MEDS ORDERED: METRONIDAZOLE 500 MG TABLET PO ONE (22:08)
[2019-01-05] MEDS ORDERED: CEFTRIAXONE INJ 250 MG VIAL IM ONE (22:08)
[2019-01-05] MEDS ORDERED: LIDOCAINE 1% INJ-PF (10 MG/ML) 30 ML SDV NEB ONE (22:08)
[2019-01-05] MEDS ORDERED: AZITHROMYCIN 250 MG TABLET PO ONE (22:08)
--- NOTE | 2019-01-05 22:14 | ER Document Report ---
ED GI/ - General Chief Complaint: Flank Pain Stated Complaint: LEFT SIDE AND ABDOMINAL PAIN Time Seen by Provider: 01/05/19 16:05 Primary Care Provider: [facility] [Provider Group] - Follow up as needed [facility] [Provider Group] - Follow up as needed JASPAL GAFFNEY MD [ACTIVE STAFF] - Follow up as needed Mode of Arrival: Ambulatory Notes: RME NOTE: 23-year-old female presented to ED for complaint of left flank pain for last several weeks. She states she stopped vaginal bleeding about 4 days ago. The last time she was seen she did have blood in the urine but we will recheck that again. She states she is nauseated but not vomiting. Patient states she has hernandez d a history of kidney infections but not kidney stones but her mother and father both had kidney stones. Patient is alert oriented respirations regular unlabored speaking in full sentences. MY HPI: Upon my assessment patient is complaining of generalized left lower abdominal pain. Voices flank pain is "intermittent." Patient voices "every time they find something wrong they do it with a contrasted CT." Patient's denying any vaginal discharge or suprapubic pain. Patient's denying any dysuria. TRAVEL OUTSIDE OF THE [place] IN LAST 30 DAYS: No - Related Data Allergies/Adverse Reactions: Penicillins Allergy (Severe, Verified 01/05/19 16:00) cinnamon Allergy (Verified 01/05/19 16:00) Sulfa (Sulfonamide Antibiotics) Allergy (Verified 01/05/19 16:00) ketorolac Adverse Reaction (Mild, Verified 01/05/19 16:00) itching Past Medical History - General Information source: Patient - Social History Smoking Status: Current Every Day Smoker Chew tobacco use (# tins/day): No Frequency of alcohol use: Rare Drug Abuse: None Family History: Arthritis, CAD, CVA, DM, Hyperlipidemia, Hypertension Patient has suicidal ideation: No Patient has homicidal ideation: No Pulmonary Medical History: Reports: Hx Asthma, Hx Bronchitis Renal/ Medical History: Denies: Hx Peritoneal Dialysis Psychiatric Medical History: Reports: Hx Depression - anxiety/PTSD, Hx Post Traumatic Stress Disorder Past Surgical History: Reports: Hx Oral Surgery - wisdoms - Immunizations Immunizations up to date: Yes Hx Diphtheria, Pertussis, Tetanus Vaccination: Yes Review of Systems - Review of Systems Constitutional: denies: Fever EENT: No symptoms reported Cardiovascular: No symptoms reported Respiratory: No symptoms reported Gastrointestinal: See HPI Genitourinary: See HPI Female Genitourinary: See HPI Musculoskeletal: See HPI Skin: No symptoms reported Hematologic/Lymphatic: No symptoms reported Neurological/Psychological: No symptoms reported Physical Exam - Vital signs Vitals: Temp Pulse Resp BP Pulse Ox 98.2 F 92 18 161/88 H 100 01/05/19 15:56 01/05/19 15:56 01/05/19 15:56 01/05/19 15:56 01/05/19 15:56 - Notes Notes: GENERAL: Alert, interacts well. No acute distress. HEAD: Normocephalic, atraumatic. EYES: Pupils equal, round, and reactive to light. Extraocular movements intact. ENT: Oral mucosa moist, tongue midline. NECK: Full range of motion. Supple. Trachea midline. LUNGS: Clear to auscultation bilaterally, no wheezes, rales, or rhonchi. No respiratory distress. HEART: Regular rate and rhythm. No murmur ABDOMEN: Soft, left lower abdominal pain noted. Non-distended. Bowel sounds present in all 4 quadrants. Suprapubic pain noted, no pelvic pain noted bilaterally. EXTREMITIES: Moves all 4 extremities spontaneously. No edema, normal radial and dorsalis pedis pulses bilaterally. No cyanosis. BACK: no cervical, thoracic, lumbar midline tenderness. No saddle anesthesia, normal distal neurovascular exam. Slight left CVA tenderness noted. NEUROLOGICAL: Alert and oriented x3. Normal speech. cranial nerves II through XII grossly intact PSYCH: Normal affect, normal mood. SKIN: Warm, dry, normal turgor. No rashes or lesions noted. Course - Re-evaluation Re-evalutation: Patient was seen at this facility recently for same symptoms. Patient is very concerned that an IV contrasted CT was not done. I discussed the risk versus benefits of IV contrasted CTs with patient in the emergency department she wishes to proceed with contrasted CT at this time. Pelvic performed with Olga GARCIA at bedside. No obvious discharge noted in the cul-de-sac but patient does have significant cervical motion tenderness. No adnexal tenderness noted bilaterally. I discussed with patient based on her physical exam findings I will treat for pelvic inflammatory disease. Patient prophylactically treated for gonorrhea and chlamydia in the emergency department. Discussed close f/u with PCP and OBGYN. Discussed refraining from alcoholic beverages and sexual intercourse while on antibiotic regimen. Patient stable for discharge. - Vital Signs Vital signs: Temp Pulse Resp BP Pulse Ox 98.4 F 82 20 125/92 H 93 01/05/19 22:22 01/05/19 22:22 01/05/19 22:22 01/05/19 22:22 01/05/19 22:22 - Laboratory Result Diagrams: 01/05/19 16:45 01/05/19 16:45 Laboratory results interpreted by me: 01/05/19 01/05/19 16:45 16:45 Hct 35.7 L Chloride 108 H Creatinine 0.49 L Discharge - Discharge Clinical Impression: Pelvic inflammatory disease (PID) Condition: Stable Disposition: HOME, SELF-CARE Instructions: Pelvic Inflammatory Disease ([facility]) Additional Instructions: As we discussed you have been seen and treated in the emergency department for pelvic inflammatory disease. Please make sure you are taking antibiotics for the full 14 days. Please also make sure you refrain from sexual intercourse and alcohol while on antibiotics. Please follow-up with your primary care provider in the next 12 to 24 hours. Have also provided phone numbers for CHIEF NURSING EXECUTIVE. Follow-up at [facility] or [facility] if you are uninsured. Return to the emergency room for any concerns. Prescriptions: Doxycycline Hyclate 100 mg PO BID 14 Days capsule Metronidazole [Flagyl 500 mg Tablet] 500 mg PO BID 14 Days tablet Hydrocodone/Acetaminophen [[place] 5-325 Tablet] 1 each PO Q6 PRN #10 tablet PRN Reason: Ondansetron [Zofran Odt 4 mg Tablet] 1 - 2 tab PO Q6 PRN #10 tab.rapdis PRN Reason: For Nausea/Vomiting Forms: Return to Work Referrals: [facility] [Provider Group] - Follow up as needed [facility] [Provider Group] - Follow up as needed JASPAL GAFFNEY MD [ACTIVE STAFF] - Follow up as needed
[2019-01-05 22:22] VITALS: BP 125/92
[2019-01-05 22:51] LABS: T.VAGINALIS (WET MOUNT) NO TRICHOMONAS SEEN; WBCS (WET MOUNT) RARE WBCS SEEN; YEAST (WET MOUNT) NO YEAST SEEN
[2019-01-05 23:43] LABS: CHLAM PCR NOT DETECTED (NOT DETECT)
== END 2019-01-05 22:55 | disposition home or self-care (01) ==
LOC: ER 15:54
DX: N73.9 Female pelvic inflammatory disease, unspecified (principal); R10.32 Left lower quadrant pain; R11.0 Nausea; F17.200 Nicotine dependence, unspecified, uncomplicated; Z88.0 Allergy status to penicillin; Z88.2 Allergy status to sulfonamides
CPT/HCPCS: 36415; 87210; 83690; 84703; 85025; 80053; 81001; 87491; 87591; 74176; 74177; J3010; J3490; J2405; J0696

== ENCOUNTER 2019-08-26 20:41 | Emergency (ER) | payer SELFPAY ==
[2019-08-26 20:56] VITALS: BP 128/84
[2019-08-26] MEDS ORDERED: CLINDAMYCIN HCL 150 MG CAPSULE PO ONE (21:40)
[2019-08-26] MEDS ORDERED: HYDROCODONE/ACETAMINOPHEN 5-325 MG (6 TAB/ER DISP) PO PRN (21:40)
--- NOTE | 2019-08-26 21:45 | ER Document Report ---
HPI - HPI Time Seen by Provider: 08/26/19 21:35 Context: Patient is a 24-year-old female who presents emergency department with a chief complaint of dental pain. Patient reports that she has been battling dental pain for 2 weeks. She reports that the pain is worse when attempting to open her mouth and talk. Patient reports that she has not been able to make an appointment with the [facility]. She states that she has been taking amoxicillin that her family member bought from a pet supply store that is supposed to be for fish but is not helping with her dental pain. - REPRODUCTIVE Reproductive: DENIES: : Past Medical History - General Information source: Patient - Social History Smoking Status: Unknown if Ever Smoked Lives with: Spouse/Significant other Family History: Arthritis, CAD, CVA, DM, Hyperlipidemia, Hypertension - Past Medical History Cardiac Medical History: Reports: None Pulmonary Medical History: Reports: Hx Asthma, Hx Bronchitis EENT Medical History: Reports: None Neurological Medical History: Reports: None Endocrine Medical History: Reports: None Renal/ Medical History: Reports: None. Denies: Hx Peritoneal Dialysis Malignancy Medical History: Reports: None GI Medical History: Reports: None Musculoskeletal Medical History: Reports None Skin Medical History: Reports None Psychiatric Medical History: Reports: Hx Depression - anxiety/PTSD, Hx Post Traumatic Stress Disorder Traumatic Medical History: Reports: None Infectious Medical History: Reports: None Past Surgical History: Reports: Hx Oral Surgery - [facility] - Immunizations Immunizations up to date: Yes Hx Diphtheria, Pertussis, Tetanus Vaccination: Yes Vertical Provider Document - CONSTITUTIONAL Agree With Documented VS: Yes Exam Limitations: No Limitations General Appearance: No Apparent Distress - INFECTION CONTROL TRAVEL OUTSIDE OF THE [place] IN LAST 30 DAYS: No - HEENT HEENT: Atraumatic, Normal ENT Exam, Normocephalic, PERRLA Mouth Diagram: 1 - Dental caries noted with signs of gingivitis 2 - Dental caries noted with signs of gingivitis - NECK Neck: Normal Inspection - RESPIRATORY Respiratory: Breath Sounds Normal, No Respiratory Distress - CARDIOVASCULAR Cardiovascular: Regular Rate, Regular Rhythm - GI/ABDOMEN Gastrointestinal: Abdomen Soft, Abdomen Non-Tender - BACK Back: Normal Inspection - MUSCULOSKELETAL/EXTREMETIES Musculoskeletal/Extremeties: FROM - NEURO Level of Consciousness: Awake, Alert, Appropriate - DERM Integumentary: Warm, Dry, No Rash Course - Vital Signs Vital signs: Temp Pulse Resp BP Pulse Ox 98.9 F 87 14 128/84 H 98 08/26/19 20:55 08/26/19 20:55 08/26/19 20:55 08/26/19 20:55 08/26/19 20:55 Discharge - Discharge Clinical Impression: Dental caries Condition: Stable Disposition: HOME, SELF-CARE Additional Instructions: *Today are seen the emergency department for dental pain. You do have a dental caries and a possible dental infection. I am placing you on clindamycin which is an antibiotic. I am also giving you [place]. Please take this medication as prescribed only and do not drive while taking this medication as it is a narcotic. I would also incorporate ibuprofen. The ibuprofen will help with inflammation. Please call the [facility] on Wednesday to schedule an appointment for follow-up. Dental Infection or Abscess You have an infection, perhaps an abscess (pus formation) of the gum around one of your teeth, which is probably decayed. If there is an abscess, it may drain on its own or it may need to be opened or lanced. Severe swelling or drai nage around a tooth usually means a deep dental abscess which usually requires evaluation and treatment by a dentist or oral surgeon. Antibiotics may be prescribed while awaiting dental treatment. If you develop high fever with chills, worsening pain, or increasing swelling in the area, see a dentist or oral surgeon immediately or return to the Emergency Department immediately. Prescriptions: Clindamycin HCl 300 mg PO TID 7 Days #21 capsule Forms: Return to Work Referrals: [facility] [Outside] - Follow up as needed
== END 2019-08-26 21:52 | disposition home or self-care (01) ==
LOC: ER 20:41
DX: K02.9 Dental caries, unspecified (principal); K08.89 Other specified disorders of teeth and supporting structures; J45.909 Unspecified asthma, uncomplicated
CPT/HCPCS: 99282

== ENCOUNTER 2019-10-06 21:44 | Emergency (ER) | payer SELFPAY ==
[2019-10-06] MEDS ORDERED: ACETAMINOPHEN WITH CODEINE #3 TABLET PO ONE (23:09)
[2019-10-06] MEDS ORDERED: IBUPROFEN 600 MG TABLET PO ONE (23:10)
--- NOTE | 2019-10-06 23:12 | ER Document Report ---
ED Oral Problem - General Chief Complaint: Mouth Problem Stated Complaint: MOUTH PAIN Time Seen by Provider: 10/06/19 22:56 Primary Care Provider: [facility] [Provider Group] - Follow up as needed Mode of Arrival: Ambulatory Information source: Patient Notes: Patient is a 24-year-old female who returns to ER with complaint of dental pain. Patient was seen on September 05, 2019 for same presentation. She was written for antibiotics and was to follow-up with the [facility]. However since the coronavirus pandemic the [facility] has not been seen patients except by telephone which does not help when you have dental decay. Patient also started a new job and does not have the money to go anywhere locally. She is contacted a dentist in [place] and they will see her as soon as she has enough money. Patient is complaining of right frontal fractured teeth with pain. She does smoke a pack cigarettes a day. Last menstrual period was this past week. To started bothering her again 3 days ago. Patient states she is unable to eat or drink secondary to the sensitivity to hot and cold and the discomfort and swelling. TRAVEL OUTSIDE OF THE [place] IN LAST 30 DAYS: No - HPI Patient complains to provider of: Toothache Onset: Other - 3 days Onset: Gradual Quality of pain: Achy, Throbbing Severity: Moderate Pain Level: 4 Context: Fractured tooth Swollen jaw/face: Mild Associated symptoms: Toothache Worsened by: Other - And heat - Related Data Allergies/Adverse Reactions: Penicillins Allergy (Severe, Verified 08/26/19 21:38) cinnamon Allergy (Verified 08/26/19 21:38) Sulfa (Sulfonamide Antibiotics) Allergy (Verified 08/26/19 21:38) ketorolac Adverse Reaction (Mild, Verified 08/26/19 21:38) itching Past Medical History - General Information source: Patient - Social History Smoking Status: Current Every Day Smoker Cigarette use (# per day): Yes - Half pack Chew tobacco use (# tins/day): No Smoking Education Provided: No Frequency of alcohol use: None Drug Abuse: None Lives with: Family Family History: Reviewed & Not Pertinent, Arthritis, CAD, CVA, DM, Hyperlipidemia, Hypertension Patient has homicidal ideation: No Pulmonary Medical History: Reports: Hx Asthma, Hx Bronchitis Renal/ Medical History: Denies: Hx Peritoneal Dialysis Psychiatric Medical History: Reports: Hx Depression - anxiety/PTSD, Hx Post Traumatic Stress Disorder Past Surgical History: Reports: Hx Oral Surgery - [facility] - Immunizations Immunizations up to date: Yes Hx Diphtheria, Pertussis, Tetanus Vaccination: Yes Review of Systems - Review of Systems Constitutional: No symptoms reported EENT: Dental problem Cardiovascular: No symptoms reported Respiratory: No symptoms reported Gastrointestinal: No symptoms reported Genitourinary: No symptoms reported Female Genitourinary: No symptoms reported Musculoskeletal: No symptoms reported Skin: No symptoms reported Hematologic/Lymphatic: No symptoms reported Neurological/Psychological: No symptoms reported -: Yes All other systems reviewed and negative Physical Exam - Vital signs Vitals: Temp Pulse Resp BP Pulse Ox 98.0 F 87 20 121/73 99 10/06/19 22:14 10/06/19 22:14 10/06/19 22:14 10/06/19 22:14 10/06/19 22:14 Interpretation: Normal - Notes Notes: PHYSICAL EXAMINATION: GENERAL: Patient is a well-nourished well-developed 24-year-old female no apparent distress but does appear uncomfortable. HEAD: Atraumatic, normocephalic. EYES: Pupils equal round and reactive to light, extraocular movements intact, conjunctiva are normal. ENT: Examination patient's area concern is her oral cavity. Primarily in the right frontal upper teeth. Particularly 6 and 8. The enamel is decayed on both teeth there is moderate amount of erythema around the gum tooth line. There is swelling of the upper lip area into the jaw minimally on visualization. There is no overt or fluctuant area that is palpable. NECK: Normal range of motion, supple without lymphadenopathy LUNGS: Breath sounds clear to auscultation bilaterally and equal. No wheezes rales or rhonchi. HEART: Regular rate and rhythm without murmurs NEUROLOGICAL: . Normal speech, normal gait. Normal sensory, motor exams PSYCH: Normal mood, normal affect. SKIN: Warm, Dry, normal turgor, no rashes or lesions noted. Course - Re-evaluation Re-evalutation: 10/06/19 23:14 I did look patient up in the [facility] aware. She really does not have any type of drug-seeking behavior. Last thing she got was 10 hydrocodone fives back in January 2019. Nothing since that point time. I will give her some Tylenol with codeine for the discomfort and pain along with the clindamycin. - Vital Signs Vital signs: Temp Pulse Resp BP Pulse Ox 98.0 F 87 20 121/73 99 10/06/19 22:14 10/06/19 22:14 10/06/19 22:14 10/06/19 22:14 10/06/19 22:14 Discharge - Discharge Clinical Impression: Pain, dental Condition: Stable Disposition: HOME, SELF-CARE Instructions: [facility], Clindamycin ([facility]), Oral Narcotic Medication ([facility]) Additional Instructions: As you know we cannot fix this problem in the emergency room. Please keep your appointment with [facility] as soon as you can afford it to get this taken care of. Take all of medication as prescribed. You can also take 600 mg of ibuprofen along with any pain medication. Remember that the Tylenol has 300 mg of Tylenol in it currently you do not want to exceed more than 4 g of Tylenol in a 24-hour period. Return to ER if you have any concerns or problems. Prescriptions: Acetaminophen with Codeine [Tylenol #3 Tablet] 1 each PO Q4HP PRN #16 tablet PRN Reason: Clindamycin HCl 300 mg PO Q6 #40 capsule Referrals: [facility] [Provider Group] - Follow up as needed
[2019-10-07 01:01] VITALS: BP 124/74
== END 2019-10-06 23:45 | disposition home or self-care (01) ==
LOC: ER 21:44
DX: K08.9 Disorder of teeth and supporting structures, unspecified (principal); K13.79 Other lesions of oral mucosa; F17.210 Nicotine dependence, cigarettes, uncomplicated
CPT/HCPCS: 99282

== ENCOUNTER 2019-10-23 12:13 | Emergency (ER) | payer SELFPAY ==
[2019-10-23] MEDS ORDERED: NORMAL SALINE 1000 ML 1,000 ML IV ONE (13:40)
[2019-10-23] MEDS ORDERED: ONDANSETRON HCL INJ/PF 4 MG/2 ML SDV IV ONE (13:40)
--- NOTE | 2019-10-23 14:48 | RADIOLOGY REPORT (SQ) ---
EXAM DESCRIPTION: U/S ABDOMEN LIMITED W/O DOP IMAGES COMPLETED DATE/TIME: 10/23/2019 2:38 pm REASON FOR STUDY: Upper quadrant abdominal pain nausea vomiting COMPARISON: None. TECHNIQUE: Dynamic and static grayscale images acquired of the abdomen and recorded on PACS. Additio nal selected color Doppler and spectral images recorded. LIMITATIONS: None. FINDINGS: PANCREAS: No masses. Visualized pancreatic duct normal caliber. LIVER: No masses. Echotexture normal. LIVER VASCULATURE: Normal directional flow of the main portal vein and hepatic veins. GALLBLADDER: No stones. Normal wall thickness. No pericholecystic fluid. ULTRASOUND-DETECTED PENNINGTON'S SIGN: Negative. INTRAHEPATIC DUCTS AND COMMON DUCT: CBD and intrahepatic ducts normal caliber. No filling defects. AORTA: No aneurysm. RIGHT KIDNEY: Normal size, 10.7 cm. Normal echogenicity. No solid or suspicious masses. No hydroneph rosis. No calcifications. PERITONEAL AND RIGHT PLEURAL SPACE: No ascites or effusions. OTHER: No other significant findings. IMPRESSION: NORMAL RIGHT UPPER QUADRANT ULTRASOUND. TECHNICAL DOCUMENTATION: JOB ID: [id number] [employer]- All Rights Reserved Reading location - IP/workstation name: [email or web address]
[2019-10-23 15:01] LABS: ABSOLUTE BASOPHILS # (AUTO) 0.1 10^3/uL (0.0-0.2); ABSOLUTE EOSINOPHILS # (AUTO) 0.2 10^3/uL (0.0-0.6); ABSOLUTE LYMPHOCYTES (AUTO) 2.5 10^3/uL (0.5-4.7); ABSOLUTE MONOCYTES (AUTO) 0.5 10^3/uL (0.1-1.4); ABSOLUTE NEUT (AUTO) 4.9 10^3/uL (1.7-8.2); BASOPHILS % (AUTO) 0.6 % (0-2); EOSINOPHILS % (AUTO) 2.3 % (0-6); HEMATOCRIT 38.9 % (36.0-47.0); HEMOGLOBIN 13.6 g/dL (12.0-15.5); LYMPHOCYTES % (AUTO) 30.9 % (13-45); MEAN CORPUSCULAR HEMOGLOBIN 32.3 pg (27.0-33.4); MEAN CORPUSCULAR VOLUME 92 fl (80-97); MONOCYTES % (AUTO) 5.7 % (3-13); PLATELET COUNT 369 10^3/uL (150-450); RED BLOOD COUNT 4.22 10^6/uL (3.72-5.28); RED CELL DISTRIBUTION WIDTH 13.1 % (11.5-14.0); SEGMENTED NEUTROPHILS % (AUTO) 60.5 % (42-78); TOTAL CELLS COUNTED % (AUTO) 100 %; WHITE BLOOD COUNT 8.1 10^3/uL (4.0-10.5)
[2019-10-23 15:27] LABS: ALBUMIN 4.7 g/dL (3.5-5.0); ALKALINE PHOSPHATASE 43 U/L (38-126); ANION GAP 7 (5-19); ASPARTATE AMINO TRANSFERASE 19 U/L (14-36); BILIRUBIN,TOTAL 0.5 mg/dL (0.2-1.3); BLOOD UREA NITROGEN 7 mg/dL (7-20); CALCIUM 9.6 mg/dL (8.4-10.2); CARBON DIOXIDE 26 mmol/L (22-30); CHLORIDE 108 mmol/L (98-107); CREATINE KINASE 41 U/L (30-135); GLUCOSE 92 mg/dL (75-110); POTASSIUM 4.8 mmol/L (3.6-5.0); TOTAL PROTEIN 7.8 g/dL (6.3-8.2)
[2019-10-23] MEDS ORDERED: FENTANYL CITRATE INJ/PF 100 MCG/2 ML AMPUL IV ONE (15:48)
--- NOTE | 2019-10-23 15:49 | ER Document Report ---
ED GI/ - General Chief Complaint: Abdominal Pain Stated Complaint: FLANK PAIN/VOMITING Time Seen by Provider: 10/23/19 13:38 Primary Care Provider: [facility] [Provider Group] - Follow up as needed [facility] [Provider Group] - Follow up as needed Mode of Arrival: Ambulatory Information source: Patient Notes: Patient presents with right lower quadrant abdominal pain for the past week that worsened yesterday. Patient reports nausea vomiting x7 episodes today. Patient denies any fever, diarrhea, or urinary symptoms. TRAVEL OUTSIDE OF THE U.S. IN LAST 30 DAYS: No - HPI Patient complains to provider of: Abdominal pain, Vomiting Onset: Last week Timing/Duration: Worse Quality of pain: Stabbing Pain Level: 5 Location: RLQ Vaginal bleeding (Compared to normal period): None Associated symptoms: Nausea, Vomiting. denies: Constipation, Diarrhea, Dysuria, Fever, Loss of appetite, Urinary hesitancy, Urinary frequency, Urinary retention, Vaginal discharge Exacerbated by: Denies Relieved by: Denies Similar symptoms previously: No Recently seen / treated by doctor: No - Related Data Allergies/Adverse Reactions: Penicillins Allergy (Severe, Verified 08/26/19 21:38) cinnamon Allergy (Verified 08/26/19 21:38) Sulfa (Sulfonamide Antibiotics) Allergy (Verified 08/26/19 21:38) ketorolac Adverse Reaction (Mild, Verified 08/26/19 21:38) itching Past Medical History - General Information source: Patient - Social History Smoking Status: Current Every Day Smoker Frequency of alcohol use: None Drug Abuse: None Occupation: Retail Lives with: Family Family History: Reviewed & Not Pertinent, Arthritis, CAD, CVA, DM, Hy perlipidemia, Hypertension Pulmonary Medical History: Reports: Hx Asthma, Hx Bronchitis Renal/ Medical History: Reports: Hx Ovarian Cysts. Denies: Hx Peritoneal Dialysis Psychiatric Medical History: Reports: Hx Depression - anxiety/PTSD, Hx Post Traumatic Stress Disorder Past Surgical History: Reports: Hx Oral Surgery - [facility] - Immunizations Immunizations up to date: Yes Hx Diphtheria, Pertussis, Tetanus Vaccination: Yes Review of Systems - Review of Systems Constitutional: No symptoms reported. denies: Fever EENT: No symptoms reported Cardiovascular: No symptoms reported Respiratory: No symptoms reported. denies: Cough, Short of breath Gastrointestinal: Abdominal pain, Nausea, Vomiting. denies: Diarrhea Genitourinary: No symptoms reported. denies: Dysuria, Flank pain Female Genitourinary: Vaginal discharge. denies: , Vaginal bleeding Musculoskeletal: No symptoms reported. denies: Back pain Skin: No symptoms reported Hematologic/Lymphatic: No symptoms reported Neurological/Psychological: No symptoms reported Physical Exam - Vital signs Vitals: Temp Pulse Resp BP Pulse Ox 98.3 F 75 16 112/79 97 10/23/19 12:42 10/23/19 12:42 10/23/19 12:42 10/23/19 12:42 10/23/19 12:42 - General General appearance: Appears well, Alert In distress: None - HEENT Head: Normocephalic, Atraumatic Eyes: Normal Nasal: Normal Mouth/Lips: Normal Mucous membranes: Normal Neck: Normal, Supple. No: Lymphadenopathy - Respiratory Respiratory status: No respiratory distress Chest status: Nontender Breath sounds: Normal. No: Rales, Rhonchi, Stridor, Wheezing Chest palpation: Normal - Cardiovascular Rhythm: Regular Heart sounds: S1 appreciated, S2 appreciated Murmur: No - Abdominal Inspection: Normal Distension: No distension Bowel sounds: Normal Tenderness: Tender - RLQ, Guarding Organomegaly: No organomegaly - Genitourinary External exam: Normal Speculum exam: Cervix closed, Vaginal discharge Vaginal bleeding: None Bimanuel exam: Cervical motion tender, Adnexal tenderness - right Notes: RN Baylee as standby - Back Back: Normal, Nontender. No: CVA tenderness - Extremities General upper extremity: Normal inspection, Nontender, Normal strength General lower extremity: Normal inspection, Nontender, Normal strength - Neurological Neuro grossly intact: Yes Cognition: Normal Saida Coma Scale Eye Opening: Spontaneous Saida Coma Scale Verbal: Oriented Saida Coma Scale Motor: Obeys Commands [place] Coma Scale Total: 15 - Psychological Associated symptoms: Normal affect, Normal mood - Skin Skin Temperature: Warm Skin Moisture: Dry Skin Color: Normal Course - Re-evaluation Re-evalutation: 10/23/19 19:21 Patient with elevated lipase although no findings worrisome for acute pancreatitis on CT or ultrasound. Patient pain is to the lower pelvic area and she does not have any upper abdominal tenderness. Patient without any gallstones. Patient with right lower quadrant tenderness, normal appendix on CT scan. Patient does have ovarian cyst noted on ultrasound of the pelvis. Patient does have vaginal discharge worrisome for bacterial vaginosis. Patient presents with abdominal pain without signs of peritonitis or other life- threatening or serious etiology. Patient appears stable for discharge and has been instructed to return immediately if the symptoms worsen in any way. 10/23/19 19:22 - Vital Signs Vital signs: Temp Pulse Resp BP Pulse Ox 98.3 F 75 16 112/79 97 10/23/19 12:42 10/23/19 12:42 10/23/19 12:42 10/23/19 12:42 10/23/19 12:42 - Laboratory Result Diagrams: 10/23/19 14:08 10/23/19 14:08 Laboratory results interpreted by me: 10/23/19 14:08 Chloride 108 H Lipase 952.8 H 10/23/19 19:03 Labs- All tests 24 hr 10/23/19 10/23/19 10/23/19 14:08 14:08 14:08 WBC 8.1 RBC 4.22 Hgb 13.6 Hct 38.9 MCV 92 MCH 32.3 MCHC 35.0 RDW 13.1 Plt Count 369 Lymph % (Auto) 30.9 [place] % (Auto) 5.7 Eos % (Auto) 2.3 Baso % (Auto) 0.6 Absolute Neuts (auto) 4.9 Absolute Lymphs (auto) 2.5 Absolute Monos (auto) 0.5 Absolute Eos (auto) 0.2 Absolute Basos (auto) 0.1 Seg Neutrophils % 60.5 Sodium 140.7 Potassium 4.8 Chloride 108 H Carbon Dioxide 26 Anion Gap 7 BUN 7 Creatinine 0.54 Est GFR ( Amer) > 60 Est GFR (MDRD) Non-Af > 60 Glucose 92 Calcium 9.6 Total Bilirubin 0.5 Direct Bilirubin 0.0 Neonat Total Bilirubin Not Reportable Neonat Direct Bilirubin Not Reportable Neonat Indirect Bili Not Reportable AST 19 ALT 11 Alkaline Phosphatase 43 Creatine Kinase 41 Total Protein 7.8 Albumin 4.7 Lipase 952.8 H Serum HCG, Qual NEGATIVE Urine Color Urine Appearance Urine pH Ur Specific [place] Urine Protein Urine Glucose (UA) Urine Ketones Urine Blood Urine Nitrite Urine Bilirubin Urine Urobilinogen Ur Leukocyte Esterase Urine WBC (Auto) Urine RBC (Auto) Urine Bacteria (Auto) Squamous Epi Cells Auto Urine Mucus (Auto) Urine Ascorbic Acid Epi Cells (Wet Prep) Bacteria (Wet Prep) Trichomonas (Wet Prep) Vaginal WBC Vaginal Yeast Chlamydia DNA (PCR) N.gonorrhoeae DNA (PCR) 10/23/19 10/23/19 10/23/19 15:38 16:28 16:28 WBC RBC Hgb Hct MCV MCH MCHC RDW Plt Count Lymph % (Auto) [place] % (Auto) Eos % (Auto) Baso % (Auto) Absolute Neuts (auto) Absolute Lymphs (auto) Absolute Monos (auto) Absolute Eos (auto) Absolute Basos (auto) Seg Neutrophils % Sodium Potassium Chloride Carbon Dioxide Anion Gap BUN Creatinine Est GFR ( Amer) Est GFR (MDRD) Non-Af Glucose Calcium Total Bilirubin Direct Bilirubin Neonat Total Bilirubin Neonat Direct Bilirubin Neonat Indirect Bili AST ALT Alkaline Phosphatase Creatine Kinase Total Protein Albumin Lipase Serum HCG, Qual Urine Color YELLOW Urine Appearance SLIGHTLY-CLOUDY Urine pH 6.0 Ur Specific [place] 1.016 Urine Protein NEGATIVE Urine Glucose (UA) NEGATIVE Urine Ketones NEGATIVE Urine Blood NEGATIVE Urine Nitrite NEGATIVE Urine Bilirubin NEGATIVE Urine Urobilinogen NEGATIVE Ur Leukocyte Esterase NEGATIVE Urine WBC (Auto) 4 Urine RBC (Auto) 2 Urine Bacteria (Auto) 1+ Squamous Epi Cells Auto 8 Urine Mucus (Auto) MOD Urine Ascorbic Acid NEGATIVE Epi Cells (Wet Prep) 3+ EPITHELIALS SEEN Bacteria (Wet Prep) 4+ BACTERIA SEEN Trichomonas (Wet Prep) NO TRICHOMONAS SEEN Vaginal WBC 1+ WBCS SEEN Vaginal Yeast NO YEAST SEEN Chlamydia DNA (PCR) NOT DETECTED N.gonorrhoeae DNA (PCR) NOT DETECTED 10/23/19 19:21 Labs- All tests 24 hr 10/23/19 10/23/19 10/23/19 14:08 14:08 14:08 WBC 8.1 RBC 4.22 Hgb 13.6 Hct 38.9 MCV 92 MCH 32.3 MCHC 35.0 RDW 13.1 Plt Count 369 Lymph % (Auto) 30.9 [place] % (Auto) 5.7 Eos % (Auto) 2.3 Baso % (Auto) 0.6 Absolute Neuts (auto) 4.9 Absolute Lymphs (auto) 2.5 Absolute Monos (auto) 0.5 Absolute Eos (auto) 0.2 Absolute Basos (auto) 0.1 Seg Neutrophils % 60.5 Sodium 140.7 Potassium 4.8 Chloride 108 H Carbon Dioxide 26 Anion Gap 7 BUN 7 Creatinine 0.54 Est GFR ( Amer) > 60 Est GFR (MDRD) Non-Af > 60 Glucose 92 Calcium 9.6 Total Bilirubin 0.5 Direct Bilirubin 0.0 Neonat Total Bilirubin Not Reportable Neonat Direct Bilirubin Not Reportable Neonat Indirect Bili Not Reportable AST 19 ALT 11 Alkaline Phosphatase 43 Creatine Kinase 41 Total Protein 7.8 Albumin 4.7 Lipase 952.8 H Serum HCG, Qual NEGATIVE Urine Color Urine Appearance Urine pH Ur Specific [place] Urine Protein Urine Glucose (UA) Urine Ketones Urine Blood Urine Nitrite Urine Bilirubin Urine Urobilinogen Ur Leukocyte Esterase Urine WBC (Auto) Urine RBC (Auto) Urine Bacteria (Auto) Squamous Epi Cells Auto Urine Mucus (Auto) Urine Ascorbic Acid Epi Cells (Wet Prep) Bacteria (Wet Prep) Trichomonas (Wet Prep) Vaginal WBC Vaginal Yeast Chlamydia DNA (PCR) N.gonorrhoeae DNA (PCR) 10/23/19 10/23/19 10/23/19 15:38 16:28 16:28 WBC RBC Hgb Hct MCV MCH MCHC RDW Plt Count Lymph % (Auto) [place] % (Auto) Eos % (Auto) Baso % (Auto) Absolute Neuts (auto) Absolute Lymphs (auto) Absolute Monos (auto) Absolute Eos (auto) Absolute Basos (auto) Seg Neutrophils % Sodium Potassium Chloride Carbon Dioxide Anion Gap BUN Creatinine Est GFR ( Amer) Est GFR (MDRD) Non-Af Glucose Calcium Total Bilirubin Direct Bilirubin Neonat Total Bilirubin Neonat Direct Bilirubin Neonat Indirect Bili AST ALT Alkaline Phosphatase Creatine Kinase Total Protein Albumin Lipase Serum HCG, Qual Urine Color YELLOW Urine Appearance SLIGHTLY-CLOUDY Urine pH 6.0 Ur Specific [place] 1.016 Urine Protein NEGATIVE Urine Glucose (UA) NEGATIVE Urine Ketones NEGATIVE Urine Blood NEGATIVE Urine Nitrite NEGATIVE Urine Bilirubin NEGATIVE Urine Urobilinogen NEGATIVE Ur Leukocyte Esterase NEGATIVE Urine WBC (Auto) 4 Urine RBC (Auto) 2 Urine Bacteria (Auto) 1+ Squamous Epi Cells Auto 8 Urine Mucus (Auto) MOD Urine Ascorbic Acid NEGATIVE Epi Cells (Wet Prep) 3+ EPITHELIALS SEEN Bacteria (Wet Prep) 4+ BACTERIA SEEN Trichomonas (Wet Prep) NO TRICHOMONAS SEEN Vaginal WBC 1+ WBCS SEEN Vaginal Yeast NO YEAST SEEN Chlamydia DNA (PCR) NOT DETECTED N.gonorrhoeae DNA (PCR) NOT DETECTED - Diagnostic Test Radiology reviewed: Reports reviewed Discharge - Discharge Clinical Impression: Elevated lipase, Pelvic pain, Bacterial vaginosis Ovarian cyst Qualifiers: Laterality: right Qualified Code(s): N83.201 - Unspecified ovarian cyst, right side Nausea & vomiting Qualifiers: Vomiting type: unspecified Vomiting Intractability: non-intractable Qualified Code(s): R11.2 - Nausea with vomiting, unspecified Condition: Stable Disposition: HOME, SELF-CARE Instructions: Abdominal Pain ([facility]), Metronidazole ([facility]), Ovarian Cyst ([facility]), Vaginosis, Bacterial ([facility]) Additional Instructions: Return immediately for any new or worsening symptoms Followup with your primary care provider, call tomorrow to make a followup a ppointment Follow-up with [facility] for further evaluation of ovarian cyst Stay on a clear liquid diet and gradually advance as tolerated. Avoid any alcohol. Lipase test was elevated, follow-up with your primary doctor for further evaluation of this finding. Prescriptions: Metronidazole [Flagyl 500 mg Tablet] 500 mg PO BID #14 tablet Hydrocodone/Acetaminophen [[place] 5-325 mg Tablet] 1 tab PO Q6 PRN #6 tablet PRN Reason: Ondansetron [Zofran Odt 4 mg Tablet] 1 tab PO Q6H #15 tab.rapdis Forms: Return to Work Referrals: [facility] [Provider Group] - Follow up as needed [facility] [Provider Group] - Follow up as needed
[2019-10-23 15:53] LABS: APPEARANCE,URINE SLIGHTLY-CLOUDY; BILIRUBIN,URINE NEGATIVE (NEGATIVE); COLOR,URINE YELLOW; GLUCOSE, URINE NEGATIVE (NEGATIVE); KETONES,URINE NEGATIVE (NEGATIVE); LEUKOCYTE ESTERASE,URINE NEGATIVE (NEGATIVE); NITRITE,URINE NEGATIVE (NEGATIVE); PROTEIN,URINE NEGATIVE (NEGATIVE); URINE SPECIFIC GRAVITY 1.016; UROBILINOGEN,URINE NEGATIVE mg/dL (<2.0)
[2019-10-23 16:41] LABS: BACTERIA (WET MOUNT) 4+ BACTERIA SEEN; EPITHELIALS (WET MOUNT) 3+ EPITHELIALS SEEN; T.VAGINALIS (WET MOUNT) NO TRICHOMONAS SEEN; WBCS (WET MOUNT) 1+ WBCS SEEN; YEAST (WET MOUNT) NO YEAST SEEN
[2019-10-23] MEDS ORDERED: MORPHINE SULFATE 10 MG/ML INJ IV ONE (18:02)
[2019-10-23 18:12] LABS: CHLAM PCR NOT DETECTED (NOT DETECT)
--- NOTE | 2019-10-23 18:37 | RADIOLOGY REPORT (SQ) ---
EXAM DESCRIPTION: U/S NON OB PEL TV W/DOPPLER IMAGES COMPLETED DATE/TIME: 10/23/2019 6:15 pm REASON FOR STUDY: RLQ pain COMPARISON: 12/26/2018 TECHNIQUE: Dynamic and static grayscale images acquired of the pelvis via transvaginal approach and recorded on PACS. Additional selected color Doppler and spectral images recorded. LIMITATIONS: None. FINDINGS: UTERUS: Contour normal. No mass. ENDOMETRIAL STRIPE: No focal or generalized thickening. No masses. CERVIX: 2.7 cm. No nabothian cysts. RIGHT OVARY AND DOPPLER: Normal size. No worrisome masses. There is a 27 mm cyst. Normal arterial v ascular flow without evidence for torsion. LEFT OVARY AND DOPPLER: Ovary not seen. FREE FLUID: None noted. OTHER: No other significant finding. MEASUREMENTS: UTERUS: 7.9 x 4.5 x 4.7 cm. ENDOMETRIAL STRIPE: 8 mm. RIGHT OVARY: 4.2 x 3.1 x 2.6 cm. LEFT OVARY: Not seen. IMPRESSION: There is a 27 mm right ovarian cyst. This is almost certainly benign. No additional im aging is required for this. TECHNICAL DOCUMENTATION: JOB ID: [id number] 2010 [employer]- All Rights Reserved Rev-07/23 Reading location - IP/workstation name: [email or web address]
--- NOTE | 2019-10-23 19:08 | RADIOLOGY REPORT (SQ) ---
EXAM DESCRIPTION: CT ABD/PELVIS WITH IV ORAL IMAGES COMPLETED DATE/TIME: 10/23/2019 6:57 pm REASON FOR STUDY: RLQ pain COMPARISON: 01/05/2019 TECHNIQUE: CT scan of the abdomen and pelvis performed using helical scanning technique with dynamic intravenous contrast injection. Oral contrast. Images reviewed with lung, soft tissue, and bone win dows. Reconstructed coronal and sagittal MPR images reviewed. Delayed images for evaluation of the ur inary system also acquired. All images stored on PACS. All CT scanners at this facility use dose modulation, iterative reconstruction, and/or weight based d osing when appropriate to reduce radiation dose to as low as reasonably achievable (ALARA). [facility]: Dose Right [facility]: CareDose [facility]: Dose Right [facility]: Teradose 4D [facility]: [employer] CONTRAST TYPE AND DOSE: contrast/concentration: Isovue 350.00 mmol/ml; Total Contrast Delivered: 69. 0 ml; Total Saline Delivered: 65.0 ml RENAL FUNCTION: BUN 7 creatinine 0.34 RADIATION DOSE: CT Rad equipment meets quality standard of care and radiation dose reduction techniq ues were employed. CTDIvol: NaN - NaN mGy. DLP: 0 mGy-cm.. LIMITATIONS: None. FINDINGS: LOWER CHEST: No significant findings. No nodules or infiltrates. LIVER: Normal size. No masses. No dilated ducts. SPLEEN: Normal size. No focal lesions. PANCREAS: No masses. No significant calcifications. No adjacent inflammation or peripancreatic fluid collections. Pancreatic duct not dilated. GALLBLADDER: No identified stones by CT criteria. No inflammatory changes to suggest cholecystitis. ADRENAL GLANDS: No significant masses or asymmetry. RIGHT KIDNEY AND URETER: No solid masses. No significant calcifications. No hydronephrosis or hyd roureter. LEFT KIDNEY AND URETER: No solid masses. No significant calcifications. No hydronephrosis or hydr oureter. AORTA AND VESSELS: No aneurysm. No dissection. Renal arteries, SMA, celiac without stenosis. RETROPERITONEUM: No retroperitoneal adenopathy, hemorrhage or masses. BOWEL AND PERITONEAL CAVITY: No masses or inflammatory changes. The contrast is in the colon. No fr ee fluid or peritoneal masses. APPENDIX: Normal. PELVIS: No mass. No free fluid. Normal bladder. ABDOMINAL WALL: No masses. No hernias. BONES: No significant or acute findings. OTHER: No other significant finding. IMPRESSION: NO SIGNIFICANT OR ACUTE FINDING IN THE ABDOMEN OR PELVIS ON CT SCAN WITH IV CONTRAST. TECHNICAL DOCUMENTATION: JOB ID: [id number] Quality ID # [id number]: Final reports with documentation of one or more dose reduction techniques (e.g., Au tomated exposure control, adjustment of the mA and/or kV according to patient size, use of iterative reconstruction technique) 2010 [employer]- All Rights Reserved Reading location - IP/workstation name: [email or web address]
[2019-10-23] MEDS ORDERED: HYDROCODONE/ACETAMINOPHEN 5-325 MG TABLET PO ONE (19:32)
[2019-10-23 19:57] VITALS: BP 118/78
== END 2019-10-23 19:55 | disposition home or self-care (01) ==
LOC: ER 12:13
DX: N83.201 Unspecified ovarian cyst, right side (principal); N76.0 Acute vaginitis; B96.89 Other specified bacterial agents as the cause of diseases classified elsewhere; R11.2 Nausea with vomiting, unspecified; R10.2 Pelvic and perineal pain; R79.89 Other specified abnormal findings of blood chemistry; R10.31 Right lower quadrant pain; R10.813 Right lower quadrant abdominal tenderness; F17.200 Nicotine dependence, unspecified, uncomplicated; J45.909 Unspecified asthma, uncomplicated; Z88.0 Allergy status to penicillin; Z91.018 Allergy to other foods; Z88.2 Allergy status to sulfonamides
CPT/HCPCS: 99285; 96361; 96374; 96375; 36415; 87086; 87210; 82550; 83690; 84703; 85025; 80053; 81001; 87491; 87591; 76705; 76830; 93976; 74177; J3010; J2270; J2405; J7030

== ENCOUNTER 2020-01-29 12:33 | Emergency (ER) | payer SELFPAY ==
[2020-01-29 12:46] VITALS: BP 129/75
[2020-01-29] MEDS ORDERED: LIDOCAINE 2% VISCOUS SOLN 15 ML UDCUP PO ONE (13:36)
--- NOTE | 2020-01-29 13:39 | ER Document Report ---
ED General - General Chief Complaint: Dental Injury Stated Complaint: LEFT SIDE OF FACE SWELLING/TOOTH PAIN Time Seen by Provider: 01/29/20 13:20 Mode of Arrival: Ambulatory Information source: Patient TRAVEL OUTSIDE OF THE [place] IN LAST 30 DAYS: No - HPI Notes: Patient is a 24 y/o female who presents with dental pain that began two days ago. Patient states her upper incisor on the left side was already partially broken but 2 days ago more of it broke off, which resulted in significant pain. She reports pain to her left upper teeth as well as left facial swelling. She has been seen by dentist in [place] and had a couple of teeth extracted in the beginning of December. She states she does not have money currently to see his dentist again but gets paid in 2 days. She denies fever and drainage. - Related Data Allergies/Adverse Reactions: Penicillins Allergy (Severe, Verified 01/29/20 13:18) cinnamon Allergy (Verified 01/29/20 13:18) Sulfa (Sulfonamide Antibiotics) Allergy (Verified 01/29/20 13:18) ketorolac Adverse Reaction (Mild, Verified 01/29/20 13:18) itching Past Medical History - General Information source: Patient - Social History Smoking Status: Current Some Day Smoker Frequency of alcohol use: Occasional Family History: Reviewed & Not Pertinent, Arthritis, CAD, CVA, DM, Hyperlipidemia, Hypertension Patient has homicidal ideation: No Pulmonary Medical History: Reports: Hx Asthma, Hx Bronchitis Renal/ Medical History: Reports: Hx Ovarian Cysts. Denies: Hx Peritoneal Dialysis Psychiatric Medical History: Reports: Hx Depression - anxiety/PTSD, Hx Post Traumatic Stress Disorder Past Surgical History: Reports: Hx Oral Surgery - [facility] - Immunizations Immunizations up to date: Yes Hx Diphtheria, Pertussis, Tetanus Vaccination: Yes Review of Systems - Review of Systems Constitutional: No symptoms reported EENT: See HPI Cardiovascular: No symptoms reported Respiratory: No symptoms reported Gastrointestinal: No symptoms reported Genitourinary: No symptoms reported Female Genitourinary: No symptoms reported Musculoskeletal: No symptoms reported Skin: No symptoms reported Hematologic/Lymphatic: No symptoms reported Neurological/Psychological: No symptoms reported Physical Exam - Vital signs Vitals: Temp Pulse Resp BP Pulse Ox 98.7 F 85 19 129/75 H 96 01/29/20 12:46 01/29/20 12:46 01/29/20 12:46 01/29/20 12:46 01/29/20 12:46 - Notes Notes: PHYSICAL EXAMINATION: GENERAL: Well-appearing, well-nourished and in no acute distress. HEAD: Atraumatic, normocephalic. No visible facial swelling. EYES: sclera anicteric, conjunctiva are normal. ENT: Moist mucous membranes. Broken tooth #10, however base of tooth is still in place. No surrounding erythema or swelling. No drainage or bleeding. Missing tooth #12 but well healed with no exposed socket. NECK: Normal range of motion LUNGS: Normal work of breathing HEART: 2+ radial pulses bilaterally EXTREMITIES: no pitting or edema. No cyanosis. NEUROLOGICAL: No focal neurological deficits. Moves all extremities spontaneously and on command. PSYCH: Normal mood, normal affect. SKIN: Warm, Dry, normal turgor, no rashes or lesions noted. Course - Re-evaluation Re-evalutation: Patient is a 24-year-old female who presents with dental pain that began 2 days ago. Vital signs are normal and stable. On exam, tooth #10 is broken but the base is intact and in place. No surrounding swelling or erythema and no visible facial swelling. Patient given some viscous lidocaine to apply topically to the tooth until she can be seen by the dentist. Advised that she should take Tylenol and ibuprofen as needed for pain. Patient states she will try to get an appointment with her dentist on Wednesday after she gets pain. Patient understands and is in agreement with the plan. Patient will be discharged home. - Vital Signs Vital signs: Temp Pulse Resp BP Pulse Ox 98.7 F 85 19 129/75 H 96 01/29/20 12:46 01/29/20 12:46 01/29/20 12:46 01/29/20 12:46 01/29/20 12:46 Discharge - Discharge Clinical Impression: Pain, dental Condition: Stable Disposition: HOME, SELF-CARE Additional Instructions: Toothache Your pain is due to dental pain and a broken tooth. The tooth must be repaired in order for you to feel better. You will, therefore, be referred to a dentist. Severe swelling or drainage around a tooth usually means a deep dental abscess. This also requires evaluation and treatment by the dentist, but antib iotics may be prescribed while awaiting dental treatment. You should be rechecked immediately if you develop major swelling of the face, increasing pain, a lump in the jaw or gums, headache, or fever. Forms: Return to Work Referrals: CARMEN CARRANZA DDS [NO LOCAL MD] - Follow up as needed
== END 2020-01-29 13:44 | disposition home or self-care (01) ==
LOC: ER 12:33
DX: K08.9 Disorder of teeth and supporting structures, unspecified (principal); R22.0 Localized swelling, mass and lump, head; F17.200 Nicotine dependence, unspecified, uncomplicated; Z88.0 Allergy status to penicillin; Z88.2 Allergy status to sulfonamides
CPT/HCPCS: 99282; J3490